=== PATIENT | female | born 1935 | race Caucasian/White ===

== ENCOUNTER 2023-10-18 06:58 | Day surgery (SDC) | payer MEDICARE ==
[~2023-10-18 06:58] MED LIST: ALPRAZolam 0.25 MG TAB PO PRN; ALPRAZolam 0.5 MG TAB PO PRN; ASPIRIN 325 MG TAB PO STA; HEPARIN SODIUM,PORCINE (1 ML) 2,500 UNIT in SODIUM CHLORIDE 0.9% 250 ML IRRIGATION PRN; HEPARIN SODIUM,PORCINE 10,000 UNIT in SODIUM CHLORIDE 0.9% 1,000 ML IRRIGATION PRN; NITROGLYCERIN SL TABS 0.4 MG TAB SUBLINGUAL PRN
[2023-10-18] MEDS ORDERED: CLOPIDOGREL 75 MG TAB ONE (07:15)
[2023-10-18] MEDS: SODIUM CHLORIDE 0.9% 1,000 ML in EMPTY BAG 1 BAG IV SCH ×2 (07:15→21:36)
[2023-10-18] MEDS ORDERED: SODIUM CHLORIDE 0.9% 1,000 ML IV ONE (07:17)
[2023-10-18 07:42] LABS: Glucose,Whole Blood 111 mg/dL (70-110)
[2023-10-18] MEDS ORDERED: VERAPAMIL 2.5 MG/ML 2 ML AMP ONE (08:41)
[2023-10-18] MEDS ORDERED: LIDOCAINE 1% INJ 10MG/ML (20 ML MDV) ONE (08:41)
[2023-10-18] MEDS ORDERED: HEPARIN SODIUM 1,000 UN/ML (10ML VL) ONE (08:56)
[2023-10-18] MEDS ORDERED: MIDAZOLAM 2 MG/2 ML VIAL IVP ONE (09:25)
[2023-10-18] MEDS ORDERED: LIDOCAINE 1% INJ 10MG/ML (20 ML MDV) SQ ONE (09:27)
[2023-10-18] MEDS ORDERED: HEPARIN SODIUM 1,000 UN/ML (10ML VL) IV ONE (09:50)
[2023-10-18] MEDS ORDERED: RX INFO: IV CONTRAST WAS GIVEN 1 EACH MISC MISCELLANE PRN (10:01)
[2023-10-18] MEDS ORDERED: IOPAMIDOL-370 100ML BTL INJ ONE (10:03)
--- NOTE | 2023-10-18 10:11 | P.PCN ---
Date of Procedure: 10/18/23 Operative Findings: CARDIAC CATHETERIZATION PERFORMING PHYSICIAN: Ross De La Torre MD, RPVI PROCEDURE PERFORMED: 1. Selective right and left coronary angiogram 2. Left heart catheterization 3. iFR of the right coronary artery 4. Ultrasound-guided access of the right common femoral artery and right common femoral artery angiogram INDICATION: Cardiomyopathy COMPLICATION: None APPROACH: Right common femoral artery LEVEL OF SEDATION: Moderate with sedation in length of 28 minutes PROCEDURE DESCRIPTION: After obtaining an informed consent, the patient was brought to cardiac quality lab assoc. Initially I was trying to axis the right radial artery but the wire passed only initially then it stopped after that. I decided to go from the right groin. Local anesthesia was performed using lidocaine subcutaneously. The right common femoral artery was cannulated using Seldinger technique, the guidewire passed easily, following that we advanced a 6 Lithuanian sheath dilator assembly, the wire and dilator were removed and sheath was flushed. Selective right and left coronary angiogram using a 5-Lithuanian JR4 and a 4-Lithuanian JL JL 3.5 catheters. Following that we did left heart catheterization using 5-Lithuanian JR4 catheter Finally selective right common femoral artery angiogram was performed The procedure was completed there was no complication. After that I did Doppler measurements of the right coronary artery mid after zeroing the Doppler wire and equalizing between the Doppler wire and guiding catheter I did engage the right coronary artery is a JR4 catheter then I did wire the RCA. The iFR came in to be an 0.74. SELECTIVE CORONARY ANGIOGRAM: The right coronary artery: Large caliber vessel and a dominant vessel and calcified vessel. The RCA has intermediate to severe tubular lesion in the midportion. I did document the lesion to be flow-limiting by Doppler wire with iFR came in to be at 0.74 Left main: Calcified was mild to moderate disease appears to be in the range of 30-40% The left circumflex: Large caliber vessel nondominant vessel. The LCx gives rises into the first and second obtuse marginal branches and they appear to have mild disease only. The AV groove circumflex is a small caliber vessel. The left anterior descending artery: Large caliber vessel. The proximal LAD has a lesion appeared to be in the range of 70-80% appeared to be very calcified. The mid and distal LAD appears to have mild disease only. The LAD gives rises into the first diagonal branch which is a large caliber vessel was mild disease only HEMODYNAMICS: The LVEDP was about 22 mmHg with about 15 mm mini gradient across aortic valve CONCLUSION: 1. Calcified right and left coronary system 2. Severe disease involving the mid RCA and proximal LAD 3. Mean gradient across aortic valve of 15 mmHg indicating either low-flow no gradient aortic stenosis versus severe aortic stenosis POSTPROCEDURE MANAGEMENT: A consider PCI of the RCA and LAD Consider low-dose dobutamine stress test to assess the aortic valve
[2023-10-18] MEDS ORDERED: SODIUM CHLORIDE 0.9% 1,000 ML IV SCH (10:15)
[2023-10-18] MEDS ORDERED: FUROSEMIDE 10 MG/ML 2 ML VIAL IV ONE (10:23)
[2023-10-18 13:49] VITALS: RESP 16
[2023-10-18] MEDS ORDERED: ACETAMINOPHEN TAB 500 MG TAB PO ONE (14:35)
[2023-10-19 08:42] VITALS: BP 140/94; PULSE 62; TEMP 97.3
[2023-10-19 09:49] LABS: Basophils % (A) 1 %; Eosinophils % (A) 0 %; HGB 11.1 gm/dL (11.4-16.0); Hypochromasia Marked; Lymphocytes # (A) 1.1 k/uL (1.0-4.8); Lymphocytes % (A) 18 %; MCH 25.9 pg (25.0-35.0); MCHC 30.7 g/dL (31.0-37.0); MCV 84.4 fL (80.0-100.0); Mean Platelet Volume 9.5; Monocytes # (A) 0.4 k/uL (0-1.0); Monocytes % (A) 6 %; Neutrophils # (A) 4.3 k/uL (1.3-7.7); Neutrophils % (A) 73 %; Platelet Count 177 k/uL (150-450); RBC 4.27 m/uL (3.80-5.40); RDW 15.1 % (11.5-15.5)
[2023-10-19 10:11] LABS: African American GFR (CKD) 47 (>60 ml/min/1.73 sqM); Anion Gap 12 mmol/L; Blood Urea Nitrogen 31 mg/dL (7-17); Calcium 9.2 mg/dL (8.4-10.2); Carbon Dioxide 27 mmol/L (22-30); Chloride 100 mmol/L (98-107); Glucose 150 mg/dL (74-99); Non-African American GFR(CKD) 41 (>60 ml/min/1.73 sqM); Potassium 4.4 mmol/L (3.5-5.1); Sodium 139 mmol/L (137-145)
== END 2023-10-19 11:40 | disposition home or self-care (01) ==
LOC: CATHCVL 06:58 → 6NMEDSUR 09:55 → CATHCVL 10-19 11:40
PROVIDERS: ATTEND Internal Medicine Interventional Cardiology
DX: I35.0 Nonrheumatic aortic (valve) stenosis (principal); I42.9 Cardiomyopathy, unspecified; I10 Essential (primary) hypertension; E78.5 Hyperlipidemia, unspecified; E11.9 Type 2 diabetes mellitus without complications; E66.3 Overweight; Z79.82 Long term (current) use of aspirin; Z79.899 Other long term (current) drug therapy; Z79.02 Long term (current) use of antithrombotics/antiplatelets; Z79.84 Long term (current) use of oral hypoglycemic drugs
CPT/HCPCS: 99152; 99153; 93458; 93799; 76937; 80048; 85025; C1887; C1769 ×3; C1894 ×2; J2250; J1940; J2001; J1644; Q9967

== ENCOUNTER 2023-10-25 06:56 | Inpatient (IN) | payer MEDICARE ==
[~2023-10-25 06:56] MED LIST changes: -ASPIRIN 325 MG TAB PO STA; -HEPARIN SODIUM,PORCINE (1 ML) 2,500 UNIT in SODIUM CHLORIDE 0.9% 250 ML IRRIGATION PRN; -HEPARIN SODIUM,PORCINE 10,000 UNIT in SODIUM CHLORIDE 0.9% 1,000 ML IRRIGATION PRN
[2023-10-25] MEDS ORDERED: HEPARIN SODIUM,PORCINE (1 ML) 2,500 UNIT in SODIUM CHLORIDE 0.9% 250 ML IRRIGATION PRN (07:00)
[2023-10-25] MEDS ORDERED: HEPARIN SODIUM,PORCINE 10,000 UNIT in SODIUM CHLORIDE 0.9% 1,000 ML IRRIGATION PRN (07:00)
[2023-10-25 07:18] LABS: Glucose,Whole Blood 138 mg/dL (70-110)
[2023-10-25] MEDS: SODIUM CHLORIDE 0.9% 1,000 ML in EMPTY BAG 1 BAG IV ONE (07:46)
[2023-10-25] MEDS ORDERED: LIDOCAINE 1% INJ 10MG/ML (20 ML MDV) ONE (08:52)
[2023-10-25] MEDS ORDERED: HEPARIN SODIUM 1,000 UN/ML (10ML VL) ONE ×2 (09:06→10:00)
[2023-10-25] MEDS ORDERED: fentaNYL (PF) 50 MCG/ML 2 ML AMP ONE (09:06)
[2023-10-25] MEDS: LIDOCAINE 1% INJ 10MG/ML (20 ML MDV) SQ ONE (09:18)
[2023-10-25] MEDS: MIDAZOLAM 2 MG/2 ML VIAL IVP ONE (09:19)
[2023-10-25] MEDS: fentaNYL (PF) 50 MCG/ML 2 ML AMP IVP ONE (09:19)
[2023-10-25] MEDS: HEPARIN SODIUM 1,000 UN/ML (10ML VL) IVP ONE (09:23)
[2023-10-25] MEDS: IOPAMIDOL-370 100ML BTL INJ ONE ×2 (09:47)
[2023-10-25] MEDS ORDERED: CLOPIDOGREL 75 MG TAB ONE (09:48)
[2023-10-25] MEDS: CLOPIDOGREL 75 MG TAB PO ONE (09:49)
[2023-10-25] MEDS ORDERED: ZOLPIDEM 5 MG TAB PO PRN (10:20)
[2023-10-25] MEDS ORDERED: MAG HYDROX/AL HYDROX/SIMETH 30 ML CUP PO PRN (10:20)
[2023-10-25] MEDS ORDERED: NITROGLYCERIN SL TABS 0.4 MG TAB SUBLINGUAL PRN (10:20)
[2023-10-25] MEDS ORDERED: RX INFO: IV CONTRAST WAS GIVEN 1 EACH MISC MISCELLANE PRN (10:20)
[2023-10-25] MEDS ORDERED: ATROPINE SULFATE 0.1 MG/ML 10ML SYRINGE IV PRN (10:20)
[2023-10-25] MEDS: TIROFIBAN 12.5MG-250ML NS 250 ML IV ONE (10:23)
--- NOTE | 2023-10-25 10:25 | P.PCN ---
Date of Procedure: 10/25/23 Operative Findings: PERCUTANEOUS CORONARY INTERVENTION Performing physician Ross De La Torre M.D. Procedure Performed: 1. Successful stenting of the mid RCA using 3.5 x 38 mm Xience drug-eluting stent with an excellent angiographic results. 2. Successful stending of the proximal RCA using 3.5 x 23 mm Xience drug-eluting stent with an excellent angiographic result. 3. Adjunctive use of intravascular imaging 4. Ultrasound guided access of the right common femoral artery and right common femoral artery angiogram Indication: Severe coronary artery disease in this symptomatic 88-year-old female patient Approach: Right common femoral artery Complications: None Level of Sedation: Moderate with a sedation length of 46 minutes Procedure Discussion: After obtaining an informed consent the patient was brought to the cardiac labor commissioner. The right common femoral artery was cannulated using micropuncture technique under ultrasound guidance the micropuncture wire passed easily then I placed a 6-Burmese at the right common femoral artery. At that point anticoagulation was initiated using heparin with continuous ACT monitoring. Subsequently I did engage the right coronary artery is a JR4 guiding catheter. I deployed using a run-through wire. Intravascular ultrasound was performed and showed a diameter around 3.5 mm with a calcified vessel. Predilatation was performed initially using 2 mm noncompliant balloon and subsequently 2.5 mm noncompliant balloon. After that I deployed 3.5 x 38 mm stent in the midright coronary artery with a stent was positioned under fluoroscopy guidance and deployed under fluoroscopy guidance. Postradiation was performed using 3.5 mm noncompliant balloon. There was dampening in the waveform and ventricularization as well as upon engaging the ostial right coronary artery which seems to have a lesion appeared to be flow limiting. I did a predilatation using 3.5 mm balloon before I deployed 3.5 x 23 mm stent was about millimeter overlap between the old and new stents. After that I deflated the ostium using 3.5 mm noncompliant balloon. An angiogram was performed and showed possible thrombus/dizziness involving the mid right coronary artery in the stented segment confirmed by intravascular imaging. I did after that postradiation again using 3.5 mm balloon was mild improvement. There was GEOFFREY-3 flow. The patient did not have any chest pain or any EKG changes. By the end we realize that the IV was not working and the patient did not receive any heparin. Immediately another IV was obtained and the patient was given heparin and Aggrastat. Postprocedure Management: 1. Continue dual antiplatelet therapy and statin 2. Aggressive cholesterol control 3. PCI of the LAD
[2023-10-25] MEDS: ASPIRIN 81 MG PO SCH (19:44)
[2023-10-25 20:00] LABS: Glucose,Whole Blood 131 mg/dL (70-110)
[2023-10-25] MEDS ORDERED: HYDROcodone/APAP 5-325MG 1 EACH TAB PO PRN (20:38)
[2023-10-25] MEDS: ACETAMINOPHEN TAB 325 MG TAB PO PRN (20:45)
[2023-10-25] MEDS: GABAPENTIN 400 MG CAP PO SCH (20:45)
[2023-10-26 06:14] LABS: Glucose,Whole Blood 123 mg/dL (70-110)
[2023-10-26] MEDS: ATORVASTATIN 80 MG TAB PO STA (08:15)
[2023-10-26] MEDS: SODIUM CHLORIDE 0.9% 1,000 ML in EMPTY BAG 1 BAG IV SCH (08:15)
[2023-10-26] MEDS: ASPIRIN 325 MG TAB PO STA (08:15)
[2023-10-26] MEDS: CHOLECALCIFEROL 25 MCG (1000 IU) TABLET PO SCH (08:15)
[2023-10-26] MEDS: ACETAMINOPHEN TAB 325 MG TAB ONE (08:15)
[2023-10-26] MEDS: GABAPENTIN 300 MG CAP PO SCH (08:20)
[2023-10-26] MEDS: PANTOPRAZOLE 40 MG TABLET PO SCH (08:20)
[2023-10-26] MEDS: lisinopriL 10 MG TAB PO SCH (08:20)
[2023-10-26] MEDS: POTASSIUM CHLORIDE ER 10 MEQ TAB.ER.PRT PO SCH (08:20)
[2023-10-26] MEDS: FUROSEMIDE 40 MG TAB PO SCH (08:20)
[2023-10-26] MEDS: CLOPIDOGREL 75 MG TAB PO SCH (08:20)
[2023-10-26] MEDS: PIOGLITAZONE 15 MG TAB PO SCH (08:20)
[2023-10-26 08:39] VITALS: RESP 16; TEMP 97.9
[2023-10-26 09:40] LABS: African American GFR (CKD) 44 (>60 ml/min/1.73 sqM); Non-African American GFR(CKD) 38 (>60 ml/min/1.73 sqM)
[2023-10-26 10:39] VITALS: BMI 47.6
[2023-10-26 10:53] LABS: Anion Gap 12 mmol/L; Blood Urea Nitrogen 37 mg/dL (7-17); Calcium 8.7 mg/dL (8.4-10.2); Carbon Dioxide 24 mmol/L (22-30); Chloride 103 mmol/L (98-107); Glucose 179 mg/dL (74-99); Magnesium 1.4 mg/dL (1.6-2.3); Potassium 4.5 mmol/L (3.5-5.1); Sodium 139 mmol/L (137-145)
[2023-10-26] MEDS ORDERED: Magnesium Replacement Protocol 1 EACH MISC MISCELLANE PRN (11:22)
[2023-10-26] MEDS: MAGNESIUM SULFATE-D5W PMX 1 GM in DEXTROSE/WATER 1 100ML.BAG IVPB SCH (11:33)
[2023-10-26 11:36] LABS: Glucose,Whole Blood 160 mg/dL (70-110)
[2023-10-26 12:41] VITALS: BP 92/54; PULSE 91
--- NOTE | 2023-10-26 16:59 | CA ---
Transthoracic Echo Report Name: Concha Tony Age: 88 Gender: F : 1935 Exam Date: 10/26/2023 12:34 Exam Location: [facility] Ht (in): 58 Wt (lb): 212 Ordering Physician: Ella Barahona Attending/Referring Phys: [id number], Jun Director Executive Communications Sarath Escamilla Procedure CPT: Indications: LV function, Cardiac Hx: Technical Quality: Technically difficult study Contrast 1: Total Dose (mL): Contrast 2: Total Dose (mL): MEASUREMENTS (Male / Female) Normal Values 2D ECHO LV Diastolic Diameter PLAX 5.0 cm 4.2 - 5.9 / 3.9 - 5.3 cm LV Systolic Diameter PLAX 4.8 cm IVS Diastolic Thickness 1.1 cm 0.6 - 1.0 / 0.6 - 0.9 cm LVPW Diastolic Thickness 1.4 cm 0.6 - 1.0 / 0.6 - 0.9 cm LV Relative Wall Thickness 0.5 RV Internal Dim ED PLAX 2.6 cm LVOT Diameter 1.9 cm Aortic Root Diameter 2.2 cm LA Systolic Diameter LX 2.6 cm 3.0 - 4.0 / 2.7 - 3.8 cm LV Diastolic Volume MOD BP 58.8 cm??? 67 - 155 / 56 - 104 cm??? LV Systolic Volume MOD BP 40.7 cm??? 22 - 58 / 19 - 49 cm??? LV Ejection Fraction MOD BP 30.9 % >= 55 % LV Cardiac Index MOD BP 746.5 cm???/min???m??? LV Diastolic Volume MOD 4C 61.5 cm??? LV Systolic Volume MOD 4C 48.1 cm??? LV Ejection Fraction MOD 4C 21.8 % LV Cardiac Index MOD 4C 549.9 cm???/min???m??? LV Diastolic Length 4C 7.2 cm LV Systolic Length 4C 7.0 cm LV Diastolic Volume MOD 2C 56.2 cm??? LV Systolic Volume MOD 2C 34.0 cm??? LV Ejection Fraction MOD 2C 39.4 % LV Cardiac Index MOD 2C 909.2 cm???/min???m??? LV Diastolic Length 2C 7.2 cm LV Systolic Length 2C 6.8 cm LA Volume 45.1 cm??? 18 - 58 / 22 - 52 cm??? LA Volume Index 22.0 cm???/m??? 16 - 28 cm???/m??? DOPPLER AV Peak Velocity 198.2 cm/s AV Peak Gradient 15.7 mmHg AV Mean Velocity 141.6 cm/s AV Mean Gradient 9.2 mmHg AV Velocity Time Integral 40.0 cm LVOT Peak Velocity 38.2 cm/s LVOT Peak Gradient 0.6 mmHg LVOT Velocity Time Integral 8.2 cm LVOT Stroke Volume 24.5 cm??? LVOT Stroke Volume Index 13.1 ml/m??? LVOT Cardiac Index 1004.1 cm???/min???m??? AV Area Cont Eq vti 0.6 cm??? AV Area Cont Eq pk 0.6 cm??? MV Peak Velocity 109.0 cm/s MV Peak Gradient 4.8 mmHg MV Mean Velocity 58.9 cm/s MV Mean Gradient 1.7 mmHg MV Velocity Time Integral 33.0 cm MR Peak Velocity 462.1 cm/s MR Peak Gradient 85.4 mmHg Mitral E Point Velocity 99.9 cm/s Mitral A Point Velocity 63.7 cm/s Mitral E to A Ratio 1.6 MV Deceleration Time 101.5 ms TR Peak Velocity 296.4 cm/s TR Peak Gradient 35.1 mmHg Right Ventricular Systolic Press 40.1 mmHg PV Peak Velocity 86.6 cm/s PV Peak Gradient 3.0 mmHg FINDINGS Left Ventricle Normal LV size. Mild concentric LVH. Ventricular septal akinesis. Left ventricular ejection fraction is estimated at 20-25 %. Right Ventricle Normal right ventricular size. RVSP= 40mmHg. Right Atrium Normal right atrial size. Left Atrium Mild left atrial dilatation. LA volume index= 24ml/m2 Mitral Valve Structurally normal mitral valve. No mitral stenosis. Moderate to severe MR. Aortic Valve Aortic valve not well visualized. AV peak gradient= 15.7mmHg. Mean gradient= 9.2mmHg. Tricuspid Valve Structurally normal tricuspid valve. Mild to moderate TR. Pulmonic Valve Pulmonic valve not well visualized. No pulmonic regurgitation. Pericardium There is a question of a small posterior pericardial effusion in short axis views. Aorta Normal size aortic root. CONCLUSIONS Severe LV dysfunction moderate to severe mitral regurgitation Aortic Is not well-visualized the peak gradient across the valve is 15 mm Previewed by: Dr. Thom Berrios MD (Electronically Signed) Final Date: 26 October 2023 16:58
[2023-10-27] MEDS ORDERED: lisinopriL 5 MG TAB PO SCH (09:00)
--- NOTE | 2023-10-30 15:18 | CDI ---
Documentation Clarification Form Date: 10/30/2023 02:56:45 PM From: Gaye Pitts Admit Date: 10/26/2023 11:31:00 AM Patient Name: Concha Tony Visit Number: [id number] Discharge Date: 10/26/2023 03:21:00 PM ATTENTION: The Clinical Documentation Specialists (CDI) and [facility] Coding Staff appreciate your assistance in clarifying documentation. Please respond to the clarification below the line at the bottom and electronically sign. The CDI & [facility] Coding staff will review the response and follow-up if needed. Please note: Queries are made part of the Legal Health Record. If you have any questions, please contact the author of this message via ITS. Dr. Ross De La Torre The patients principal diagnosis the diagnosis that was chiefly responsible for the admission - has not been clearly identified and clarification is requested. The patient presented 10/25/23 for elective outpatient percutaneous transluminal coronary angioplasty with coronary stent placement, IVUS, and ultrasound guided access for severe coronary artery disease. History/Risk factors: patient is an 88 year old female with HTN, cardiomyopathy, type 2 DM, nicotine dependence, and CHF. Clinical Indicators: patient successfully underwent PTCA on 10/25/23 in the outpatient setting. Patient was changed to inpatient status 10/26/23. Inpatient order states: "meets inpt criteria with hypomag. Patient was discharged the same day after treating hypomagnesemia. Lab findings: magnesium 1.4 Treatment: magnesium sulfate-D5w Pmx 1gm, dextrose/water 1 100ml bag IVPB Q1H In your professional opinion, can you please clarify which diagnosis, after study, was the reason chiefly responsible for the admission? [ ] Hypomagnesemia [ ] Coronary Artery Disease [ ] Other, please specify [ ] Unable to determine MTDD
--- NOTE | 2023-11-01 08:40 | DS ---
DISCHARGE SUMMARY BRIEF HISTORY: The patient is a pleasant 88-year-old female patient, who was admitted to the hospital and underwent stenting of the right coronary artery with good angiographic results and with no complication from right groin approach. The patient was seen and evaluated on October 26, 2023 and she was doing well and asymptomatic and hemodynamically stable. The patient will be going to be discharged home and she will be seen in the office for an evaluation to undergo PCI of the LAD. MMGRUPO / JERALDN: [id number] /
== END 2023-10-26 15:21 | disposition home or self-care (01) | DRG 322 ==
LOC: CATHCVL 06:56 → 3SCARD 16:57 → CATHCVL 10-26 11:31 → 3SCARD 10-26 11:31
PROVIDERS: ADMIT Internal Medicine Interventional Cardiology; ATTEND Internal Medicine Interventional Cardiology
PROC: B240ZZ3 Ultrasonography of Single Coronary Artery, Intravascular (ICD-10-PCS; principal; 2023-10-25 09:00)
PROC: 027035Z Dilation of Coronary Artery, One Artery with Two Drug-eluting Intraluminal Devices, Percutaneous Approach (ICD-10-PCS; principal; 2023-10-25 09:00)
DX: I25.10 Atherosclerotic heart disease of native coronary artery without angina pectoris (principal); Z68.42 Body mass index [BMI] 45.0-49.9, adult; E83.42 Hypomagnesemia; I42.9 Cardiomyopathy, unspecified; I35.0 Nonrheumatic aortic (valve) stenosis; E11.9 Type 2 diabetes mellitus without complications; I10 Essential (primary) hypertension; E78.5 Hyperlipidemia, unspecified; F17.210 Nicotine dependence, cigarettes, uncomplicated; E66.3 Overweight; I35.9 Nonrheumatic aortic valve disorder, unspecified; I11.0 Hypertensive heart disease with heart failure; I50.9 Heart failure, unspecified; Z28.310 Unvaccinated for COVID-19; Z71.3 Dietary counseling and surveillance; Z79.82 Long term (current) use of aspirin; Z79.84 Long term (current) use of oral hypoglycemic drugs; Z79.899 Other long term (current) drug therapy
CPT/HCPCS: 76937; 80048; 83735; 92978; 93306

== ENCOUNTER 2023-10-31 11:25 | Inpatient (IN) | payer MEDICARE ==
[~2023-10-31 11:25] MED LIST changes: +HEPARIN SODIUM,PORCINE (1 ML) 2,500 UNIT in SODIUM CHLORIDE 0.9% 250 ML IRRIGATION PRN; +HEPARIN SODIUM,PORCINE 10,000 UNIT in SODIUM CHLORIDE 0.9% 1,000 ML IRRIGATION PRN
[2023-10-31] MEDS: SODIUM CHLORIDE 0.9% 1,000 ML IV ONE (12:23)
[2023-10-31 12:47] LABS: Basophils % (A) 0 %; Eosinophils % (A) 1 %; HCT 33.1 % (34.0-46.0); HGB 10.2 gm/dL (11.4-16.0); Hypochromasia Marked; Lymphocytes # (A) 1.4 k/uL (1.0-4.8); Lymphocytes % (A) 19 %; MCH 25.6 pg (25.0-35.0); MCHC 30.8 g/dL (31.0-37.0); MCV 83.1 fL (80.0-100.0); Mean Platelet Volume 9.3; Monocytes # (A) 0.5 k/uL (0-1.0); Monocytes % (A) 6 %; Neutrophils # (A) 5.5 k/uL (1.3-7.7); Neutrophils % (A) 72 %; Platelet Count 182 k/uL (150-450); RBC 3.98 m/uL (3.80-5.40); WBC 7.6 k/uL (3.8-10.6)
[2023-10-31 12:48] LABS: Glucose,Whole Blood 121 mg/dL (70-110)
[2023-10-31 13:04] LABS: African American GFR (CKD) 50 (>60 ml/min/1.73 sqM); Anion Gap 7 mmol/L; Blood Urea Nitrogen 33 mg/dL (7-17); Calcium 8.9 mg/dL (8.4-10.2); Carbon Dioxide 27 mmol/L (22-30); Glucose 125 mg/dL (74-99); Non-African American GFR(CKD) 44 (>60 ml/min/1.73 sqM); Potassium 4.9 mmol/L (3.5-5.1); Sodium 137 mmol/L (137-145)
[2023-10-31 13:16] LABS: Chloride 103 mmol/L (98-107)
[2023-10-31] MEDS ORDERED: HEPARIN SODIUM,PORCINE 30 ML 30 ML ONE (15:00)
[2023-10-31] MEDS ORDERED: HEPARIN SODIUM 1,000 UN/ML (10ML VL) ONE (15:02)
[2023-10-31] MEDS ORDERED: LIDOCAINE 1% INJ 10MG/ML (20 ML MDV) ONE ×2 (15:02→17:24)
[2023-10-31] MEDS: MIDAZOLAM 2 MG/2 ML VIAL IVP ONE (15:21)
[2023-10-31] MEDS: LIDOCAINE 1% INJ 10MG/ML (20 ML MDV) SQ ONE ×2 (15:23→17:37)
[2023-10-31] MEDS ORDERED: fentaNYL (PF) 50 MCG/ML 2 ML AMP ONE (15:31)
[2023-10-31] MEDS: fentaNYL (PF) 50 MCG/ML 2 ML AMP IVP ONE (15:33)
[2023-10-31] MEDS: IOPAMIDOL-370 125ML BTL INJ ONE (16:28)
[2023-10-31] MEDS ORDERED: MAG HYDROX/AL HYDROX/SIMETH 30 ML CUP PO PRN (16:35)
[2023-10-31] MEDS ORDERED: ATROPINE SULFATE 0.1 MG/ML 10ML SYRINGE IV PRN (16:35)
[2023-10-31] MEDS ORDERED: RX INFO: IV CONTRAST WAS GIVEN 1 EACH MISC MISCELLANE PRN (16:35)
[2023-10-31] MEDS ORDERED: ZOLPIDEM 5 MG TAB PO PRN (16:35)
[2023-10-31] MEDS ORDERED: NITROGLYCERIN SL TABS 0.4 MG TAB SUBLINGUAL PRN (16:35)
[2023-10-31] MEDS: ASPIRIN 325 MG TAB PO ONE (17:00)
[2023-10-31] MEDS: SODIUM CHLORIDE 0.9% 1,000 ML in EMPTY BAG 1 BAG IV SCH ×2 (17:00→19:30)
[2023-10-31] MEDS: ATORVASTATIN 80 MG TAB PO STA (17:00)
[2023-10-31] MEDS ORDERED: MORPHINE SULFATE 4 MG/ML SYRINGE ONE (17:11)
[2023-10-31] MEDS: MORPHINE SULFATE 4 MG/ML SYRINGE IVP ONE (17:40)
[2023-10-31] MEDS: IOPAMIDOL-370 100ML BTL INJ ONE (17:59)
[2023-10-31] MEDS: GABAPENTIN 300 MG CAP PO SCH (18:10)
--- NOTE | 2023-10-31 18:10 | P.PCN ---
Date of Procedure: 10/31/23 Operative Findings: PERCUTANEOUS CORONARY INTERVENTION Performing physician Ross De La Torre M.D. Procedure Performed: 1. Successful stenting of the mid LAD using 3.0 x 28 mm Xience drug-eluting stent with an excellent angiographic results. 2. Successful stending of the proximal LAD using 3.5 x 18 mm Xience drug-eluting stent with an excellent angiographic result. 3. Adjunctive use of Impella CP and orbital atherectomy and intravascular im aging 4. Ultrasound-guided access of the right common femoral artery and right common femoral artery angiogram Indication: This is an 88-year-old female patient was diagnosed as she was cardiomyopathy patient underwent a heart catheterization and that revealed severely calcified right and left coronary system with a critical disease involving the right co ronary artery and left anterior descending artery. She underwent PCI of the RCA and she was brought today to undergo PCI of the LAD. Approach: Right common femoral artery Complications: None Level of Sedation: Moderate with a sedation length of 65 minutes Procedure Discussion: After obtaining an informed consent the patient was brought to the cardiac systems testing laboratory technician. The right common femoral artery was cannulated using micro-rupture technique under ultrasound guidance; puncture wire passed easily then I placed 11 cm 6-Surinamese sheath at the right common femoral artery subsequently I was able to deploy a Perclose device at 10:00 in Perclose device at 2:00. After that an 8-Surinamese sheath was placed at the right common femoral artery. Subsequently I did upgrade my 8-Surinamese sheath into a 14-Surinamese sheath using 035 stiff wire and that was performed under fluoroscopy guidance and the sheath was advanced all the way to the right iliac artery. The sheath was a long sheath. After that I did across the aortic valve using 035 regular wire with a 6-Surinamese pigtail catheter. Subsequently the wire was pulled out and exchange into an 018 Impella wire. After that the Impella device was advanced over the 018 wire under fluoroscopy guidance to the LV. Subsequently it was turned on. Adequate position was assured under fluoroscopy guidance and also with a good pressure wave forms. Subsequently I did access the 14-Surinamese sheath using Micropuncture needle and then I placed a 7-Surinamese 23 cm sheath at the teen Surinamese sheath. After that anticoagulation was initiated using heparin with continuous ACT monitoring. Then I did engage the left main using a CLS 3.5 guiding catheter which was 6-Surinamese catheter. Then I did to wire the left anterior descending artery using a run-through wire. Intravascular imaging performed and showed heavily calcified left anterior descending artery and as a matter of fact I could not advance the catheter to the proximal LAD only the ostial LAD was identified. After that I did exchange my wire into an atherectomy wire using microcatheter. Orbital atherectomy was performed using the orbital atherectomy device under low speed 4. Subsequently balloon angioplasty was performed using 2.5 mm noncompliant balloon with adequate inflation and adequate expansion of the balloon. After that I decided to do an intravascular imaging again which showed a diameter of the LAD in the midportion about 3 mm an approximately 3.5 mm. In the mid LAD I deployed 3.0 x 28 mm stent where the stent was positioned under fluoroscopy guidance and deployed under fluoroscopy guidance and approximately I deployed 3.5 x 18 mm stent as well. The area of overlap was postdilated using the stent balloon. Then final postdilatation was performed using 3.25 millimeters noncompliant balloon. Final angiogram showed excellent angiographic results and the procedure was completed with no complication. Subsequently the Impella CP was pulled across aortic valve the it was pulled across the whole body. After that the 14-Surinamese sheath was pulled out over 035 wire which was a regular wire and I deployed the Perclose devices. There was some wheezing and manual pressure was held. The procedure was completed was no complication Postprocedure Management: 1. Sheet dual antiplatelet therapy for additional twelve-month 2. Aggressive cholesterol control 3. Risk factors modification
--- NOTE | 2023-10-31 18:15 | P.PCN ---
Date of Procedure: 10/31/23 Operative Findings: PERCUTANEOUS PERIPHERAL INTERVENTION Performing physician Ross De La Torre M.D. Procedure performed 1. Successful stenting of the right common femoral artery using 6.0 x 37 mm LifeStream covered stent with achieving excellent hemostasis 2. Selective left common femoral artery angiogram Indication The patient is a pleasant 88-year-old female patient was underwent earlier today successful stenting of the left anterior descending artery from right groin approach with adjunctive use of Impella CP with 14-Central African sheath. Hemostasis was not achieved in spite of holding manual pressure for at least an hour. She was having gushed bleeding from the groin. In the light of that we decided to axis the left groin and proceed with initially balloon tamponading the artery was subsequently stenting if following temporal adding did not [place]. Approach Left common femoral artery Complications None Level of sedation Moderate with a sedation time of 30 minutes Procedure description The patient was already in the cardiac laborer sawmill from the previous procedure. After manual pressure was held for about 30 minutes and no hemostasis was achieved with decided to axis the left groin. The left common femoral artery was cannulated using puncture technique under ultrasound guidance the micro- rupture wire passed easily then I placed a 6-Central African 11 cm sheath the left common femoral artery. Subsequently I was able to direct the 035 stiff Glidewire to the right common iliac artery and subsequently right external iliac artery and then the right common femoral artery and then right SFA. After that I advanced a 6.0 x 40 mm cvvs-nra-limb balloon to the right common and right external iliac artery where balloon tamponading was performed on subsequently an angiogram showed extravasation of contrast outside the right common femoral artery. I decided to balloon tamponade again and in spite of that the bleeding did not stop. At that point I decided to cover the lesion using color stent. I was able to advance 6.0 x 37 mm covered stent over 035 wire where the stent was positioned under fluoroscopy guidance and deployed under its nominal pressure. Postdilatation was performed using 7 mm balloon. Finally I was able to achieve good hemostasis at the right groin. The procedure was completed with no complication. Postprocedure management 1. Monitor the hemoglobin very closely 2. Consider blood transfusion at the hemoglobin low 3. Follow-up with the patient
[2023-10-31 18:25] LABS: Glucose,Whole Blood 114 mg/dL (70-110)
[2023-10-31] MEDS: GABAPENTIN 400 MG CAP PO SCH (20:46)
[2023-10-31] MEDS: ASPIRIN 81 MG PO SCH (20:46)
[2023-10-31 21:04] LABS: Anisocytosis Slight; Hypochromasia Marked; MCH 25.7 pg (25.0-35.0); MCHC 30.8 g/dL (31.0-37.0); MCV 83.6 fL (80.0-100.0); Mean Platelet Volume 8.9; Platelet Count 132 k/uL (150-450); RBC 2.99 m/uL (3.80-5.40); RDW 16.1 % (11.5-15.5); WBC 5.9 k/uL (3.8-10.6)
[2023-10-31 21:21] LABS: HGB 7.7 gm/dL (11.4-16.0)
[2023-11-01 04:32] LABS: HCT 22.7 % (34.0-46.0); Hypochromasia Marked; MCH 26.1 pg (25.0-35.0); MCV 84.1 fL (80.0-100.0); Mean Platelet Volume 8.6; WBC 4.3 k/uL (3.8-10.6)
[2023-11-01 04:50] LABS: Platelet Count 57 k/uL (150-450)
[2023-11-01] MEDS: PANTOPRAZOLE 40 MG TABLET PO SCH (06:43)
[2023-11-01 07:36] LABS: African American GFR (CKD) 64 (>60 ml/min/1.73 sqM); Anion Gap 5 mmol/L; Blood Urea Nitrogen 30 mg/dL (7-17); Carbon Dioxide 23 mmol/L (22-30); Chloride 108 mmol/L (98-107); Glucose 82 mg/dL (74-99); Non-African American GFR(CKD) 56 (>60 ml/min/1.73 sqM); Sodium 136 mmol/L (137-145)
[2023-11-01 07:48] LABS: Potassium 5.4 mmol/L (3.5-5.1)
[2023-11-01] MEDS ORDERED: FUROSEMIDE 40 MG TAB PO SCH (09:00)
[2023-11-01] MEDS: CLOPIDOGREL 75 MG TAB PO SCH (09:18)
[2023-11-01] MEDS: PIOGLITAZONE 15 MG TAB PO SCH (09:18)
[2023-11-01] MEDS: POTASSIUM CHLORIDE ER 10 MEQ TAB.ER.PRT PO SCH (09:30)
[2023-11-01 09:52] LABS: Anisocytosis Slight; HCT 29.6 % (34.0-46.0); Hypochromasia Marked; MCH 25.7 pg (25.0-35.0); MCHC 30.8 g/dL (31.0-37.0); MCV 83.5 fL (80.0-100.0); Mean Platelet Volume 9.9; RBC 3.54 m/uL (3.80-5.40); WBC 7.5 k/uL (3.8-10.6)
[2023-11-01 09:54] LABS: HGB 9.1 gm/dL (11.4-16.0); Platelet Count 139 k/uL (150-450)
[2023-11-01] MEDS: lisinopriL 5 MG TAB PO SCH (10:48)
[2023-11-01 10:58] VITALS: BMI 37.0
--- NOTE | 2023-11-01 11:14 | XR ---
EXAMINATION TYPE: XR chest 1V DATE OF EXAM: 11/01/2023 COMPARISON: NONE HISTORY: 88-year-old female status post stent, CHF TECHNIQUE: Single frontal view of the chest is obtained. FINDINGS: Heart mild to moderately enlarged. Diffuse interstitial densities. Small to moderate left and small right pleural effusions. There appear to be old healed left-sided rib fracture deformities. IMPRESSION: 1. Mild to moderate cardiomegaly with pulmonary vascular congestion. 2. Small to moderate left and small right pleural effusions with adjacent atelectasis and/or consolid ation.
[2023-11-01] MEDS: FUROSEMIDE 10 MG/ML 2 ML VIAL IV SCH (11:35)
[2023-11-01] MEDS: CHOLECALCIFEROL 25 MCG (1000 IU) TABLET PO SCH (11:36)
[2023-11-01] MEDS: FUROSEMIDE 10 MG/ML 2 ML VIAL IV STA (13:42)
[2023-11-01 19:07] VITALS: RESP 18
[2023-11-01 20:22] LABS: Glucose,Whole Blood 201 mg/dL (70-110)
--- NOTE | 2023-11-01 20:28 | P.PN ---
Progress Note - Text Progress Note Date: 11/01/23 The patient is a very pleasant 88-year-old female patient with a past medical history significant for coronary artery disease and prior stenting of the RCA and yesterday the left anterior descending artery and cardiomyopathy and aortic stenosis and hypertension and dyslipidemia He was admitted to the hospital yesterday and underwent an elective angioplasty and stenting of the left anterior descending artery with adjunctive use of orbital atherectomy and also with adjunctive use of Impella CP from the right groin. The patient did well. Unfortunately we could not achieve hemostasis going from the right groin after deploying the Perclose devices. Subsequently I had to come from the left groin and a dilated balloon tamponade of the right common femoral artery and that was also unsuccessful and by the end I did stenting of the right common femoral artery using a Bard stent with achieving good hemostasis at the end. The patient was seen and evaluated today in the intensive care unit. He is doing well and he is asymptomatic. He is hemodynamically stable. The pressure has been marginal. I started the patient on diuretics IV gently 20 mg IV twice a day of Lasix because of bilateral lower extremities edema. Otherwise he reports no pain in the chest and no shortness of breath no dizziness or lightheadedness and no feeling of heart racing or fluttering. The right groin is soft and nontender with no bruises. Plan Continue the current medical regimen Continue dual antiplatelet therapy Monitor the hemoglobin very closely Continue IV diuretics Continue monitor the kidney function and electrolytes Follow-up with the patient
[2023-11-02 06:22] LABS: Glucose,Whole Blood 159 mg/dL (70-110)
[2023-11-02 08:00] LABS: Anisocytosis Slight; Basophils % (A) 0 %; Eosinophils # (A) 0.2 k/uL (0-0.7); Eosinophils % (A) 2 %; HCT 30.2 % (34.0-46.0); Hypochromasia Marked; Lymphocytes # (A) 1.4 k/uL (1.0-4.8); Lymphocytes % (A) 17 %; MCH 24.9 pg (25.0-35.0); MCHC 29.8 g/dL (31.0-37.0); MCV 83.7 fL (80.0-100.0); Mean Platelet Volume 9.5; Monocytes # (A) 0.4 k/uL (0-1.0); Monocytes % (A) 5 %; Neutrophils # (A) 6.4 k/uL (1.3-7.7); Neutrophils % (A) 75 %; Platelet Count 189 k/uL (150-450); RDW 16.4 % (11.5-15.5); WBC 8.5 k/uL (3.8-10.6)
[2023-11-02 08:15] LABS: African American GFR (CKD) 48 (>60 ml/min/1.73 sqM); Anion Gap 6 mmol/L; Blood Urea Nitrogen 30 mg/dL (7-17); Calcium 8.5 mg/dL (8.4-10.2); Carbon Dioxide 25 mmol/L (22-30); Chloride 105 mmol/L (98-107); Glucose 160 mg/dL (74-99); Non-African American GFR(CKD) 42 (>60 ml/min/1.73 sqM); Potassium 4.4 mmol/L (3.5-5.1); Sodium 136 mmol/L (137-145)
[2023-11-02 11:18] LABS: Glucose,Whole Blood 167 mg/dL (70-110)
[2023-11-02 11:44] VITALS: BP 102/38; PULSE 83; TEMP 97.5
--- NOTE | 2023-11-02 12:25 | CDI ---
Documentation Clarification Form Date: From: Vanessa Palacios Phone: [phone] Admit Date: 10/31/2023 11:54:00 AM Patient Name: Concha Tony Visit Number: [id number] Discharge Date: ATTENTION: The Clinical Documentation Specialists (CDI) and [facility] Coding Staff appreciate your assistance in clarifying documentation. Please respond to the clarification below the line at the bottom and electronically sign. The CDI & [facility] Coding staff will review the response and follow-up if needed. Please note: Queries are made part of the Legal Health Record. If you have any questions, please contact the author of this message via ITS. Dr. Ross De La Torre Your patient has a hemoglobin/hematocrit level of 7.0 Dated 11/01. Please clarify if there is an additional diagnosis and/or clinical significance related to these lab values. History/Risk Factors: "underwent an elective angioplasty and stenting of the left anterior descending artery with adjunctive use of orbital atherectomy and also with adjunctive use of Impella CP from the right groin" - Per Progress Note on 11/01 Clinical indicators: "patient did well. Unfortunately we could not achieve hemostasis going from the right groin after deploying the Perclose devices" - Per Progress Note on 11/01 "She was having gushed bleeding from groin." - Procedure note on 10/31 Hemoglobin: 10/31 - 10.2, 7.7 11/01 - 7.0, 9.1 11/02 - 9.0 Treatment: "from the left groin and a dilated balloon tamponade of the right common femoral artery and that was also unsuccessful and by the end I did stenting of the right common femoral artery using a Bard stent with achieving good hemostasis" - Per Progress Note on 11/01 "Monitor the hemoglobin very closely" "consider blood transfusion at the hemoglobin low" - Per Procedure Note on 10/31 Is there an additional diagnosis and/or clinical significance related to the above lab result/information: [ ] Acute blood loss anemia [ ] No additional diagnosis/Not clinically significant [ ] Unable to determine [ ] Other, please specify Provider has not responded to query, chart released on 12/08/2023. KEENA
--- NOTE | 2023-11-05 14:39 | CDI ---
Documentation Clarification Form Date: 11/05/2023 02:30:35 PM From: Jeni Flynn Phone: Admit Date: 10/31/2023 11:54:00 AM Patient Name: Concha Tony Visit Number: [id number] Discharge Date: 11/02/2023 03:55:00 PM ATTENTION: The Clinical Documentation Specialists (CDI) and [facility] Coding Staff appreciate your assistance in clarifying documentation. Please respond to the clarification below the line at the bottom and electronically sign. The CDI & [facility] Coding staff will review the response and follow-up if needed. Please note: Queries are made part of the Legal Health Record. If you have any questions, please contact the author of this message via ITS. Dr. Ross De La Torre Your patient has the documented diagnosis of unspecified CHF per H&P Note. Additional information regarding the acuity and type of CHF is requested. History/Risk Factors: 88yo F, severe CAD, HTN, HLD, DMII, CM, systolic murmur, , smoker Clinical Indicators: Echocardiogram Results: EF .25 (25%) 10/03/23 Chest X Ray: Mild to moderatecardiomegalywith pulmonary vascularcongestion. Small to moderate Lt and small Rtpleural effusionswith adjacent atelectasisand/or consolidation. Treatment: I started the patient on diuretics IV gently 20 mg IV twice a day of Lasix because of BLE edema. In your professional opinion, can you please clarify the acuity and type of CHF if known? [ ] Acute Systolic Heart Failure (reduced EF) [ ] Chronic Systolic Heart Failure (reduced EF) [ ] Acute on Chronic Systolic Heart Failure (reduced EF) [ ] Acute Diastolic Heart Failure (preserved EF) [ ] Chronic Diastolic Heart Failure (preserved EF) [ ] Acute on Chronic Diastolic Heart Failure (preserved EF) [ ] Acute Systolic & Diastolic Heart Failure [ ] Chronic Systolic & Diastolic Heart Failure [ ] Acute on Chronic Heart Failure Systolic & Diastolic Heart Failure [ ] Other, please specify [ ] Unable to determine (Template Last Revised: November 2020) MTDD
== END 2023-11-02 15:55 | disposition home health service (06) | DRG 221 ==
LOC: 2ORMAIN 11:54 → 2SICU 16:45 → 3SCARD 11-01 18:29
PROVIDERS: ADMIT Internal Medicine Interventional Cardiology; ATTEND Internal Medicine Interventional Cardiology
PROC: 02H03DZ Insertion of Intraluminal Device into Coronary Artery, One Artery, Percutaneous Approach (ICD-10-PCS; 2023-10-31)
PROC: 0Y3 Anatomical Regions, Lower Extremities, Control (ICD-10-PCS; 2023-10-31)
PROC: B240ZZ3 Ultrasonography of Single Coronary Artery, Intravascular (ICD-10-PCS; 2023-10-31)
PROC: 02HA3RJ Insertion of Short-term External Heart Assist System into Heart, Intraoperative, Percutaneous Approach (ICD-10-PCS; principal; 2023-10-31 11:25)
PROC: 5A0221D Assistance with Cardiac Output using Impeller Pump, Continuous (ICD-10-PCS; 2023-10-31 11:25)
PROC: 027135Z Dilation of Coronary Artery, Two Arteries with Two Drug-eluting Intraluminal Devices, Percutaneous Approach (ICD-10-PCS; 2023-10-31 11:25)
PROC: 02C03Z7 Extirpation of Matter from Coronary Artery, One Artery, Orbital Atherectomy Technique, Percutaneous Approach (ICD-10-PCS; 2023-10-31 11:25)
DX: I25.10 Atherosclerotic heart disease of native coronary artery without angina pectoris (principal); I42.9 Cardiomyopathy, unspecified; Z68.35 Body mass index [BMI] 35.0-35.9, adult; I50.9 Heart failure, unspecified; I11.0 Hypertensive heart disease with heart failure; E11.9 Type 2 diabetes mellitus without complications; I35.0 Nonrheumatic aortic (valve) stenosis; E78.5 Hyperlipidemia, unspecified; R60.0 Localized edema; E66.3 Overweight; F17.210 Nicotine dependence, cigarettes, uncomplicated; Z79.899 Other long term (current) drug therapy; Z79.82 Long term (current) use of aspirin; Z79.02 Long term (current) use of antithrombotics/antiplatelets; Z79.84 Long term (current) use of oral hypoglycemic drugs; Z28.310 Unvaccinated for COVID-19; Z79.891 Long term (current) use of opiate analgesic
CPT/HCPCS: 33990; 71045; 76937; 80048; 85025; 85027; 86850; 86900; 86901; 92978

== ENCOUNTER 2023-11-22 11:36 | Inpatient (IN) | payer MEDICARE ==
[2023-11-22] MEDS ORDERED: VANCOMYCIN IV PER PHARMACY 1 EACH MISC MISCELLANE PRN (13:27)
[2023-11-22] MEDS ORDERED: NALOXONE 0.4 MG/ML 1 ML VIAL IV PRN (13:29)
[2023-11-22] MEDS ORDERED: MORPHINE SULFATE 4 MG/ML SYRINGE IV PRN (14:02)
--- NOTE | 2023-11-22 14:06 | ED ---
Recheck HPI - General Chief Complaint: Wound/Laceration Stated Complaint: Blisters on R foot Time Seen by Provider: 11/22/23 12:28 Source: patient, RN notes reviewed, old records reviewed, Caregiver Mode of arrival: ambulatory Limitations: no limitations - History of Present Illness Initial Comments: This is a 88-year-old female to the ER today. This patient presents today for evaluation regards to overall weakness debility after recent stent placement. Patient had multiple place stents of stent in her heart with HI. Patient has persistent weakness here in the ER has had increasing debility at home decreased activity level. Patient denies any chest pain or shortness of breath but does have significant swelling of lower extremity with significant of weeping and increasing redness and pain MD Complaint: wound re-check, needs IV antibiotics -: days(s) Returns Today for: needs IV antibiotics, persistent/worsening pain related to initial visit Symptoms Since Prior Visit: worsening pain, worsening swelling, worsening redness Associated Symptoms: none Treatments Prior to Arrival: Given Antibiotics on, Given Pain Meds on - Related Data Home Medications Medication Instructions Recorded Confirmed Aspirin 81 mg PO HS 07/16/14 11/22/23 Clopidogrel [Plavix] 75 mg PO DAILY 07/16/14 11/22/23 Furosemide [Lasix] 40 mg PO DAILY 07/16/14 11/22/23 Gabapentin [Neurontin] 600 mg PO BID-W/MEALS 07/16/14 11/22/23 Lansoprazole [Prevacid] 30 mg PO DAILY 07/16/14 11/22/23 Pioglitazone [Actos] 15 mg PO DAILY 10/16/23 11/22/23 Potassium Chloride ER [K-Dur 10] 10 meq PO DAILY 10/16/23 11/22/23 Gabapentin 1,200 mg PO HS 10/25/23 11/22/23 Atorvastatin Calcium [Lipitor] 40 mg PO HS 11/22/23 11/22/23 Doxycycline Hyclate 100 mg PO BID 11/22/23 11/22/23 ramipriL 2.5 mg PO DAILY 11/22/23 11/22/23 Previous Rx's Medication Instructions Recorded Cholecalciferol [Vitamin D3 (25 1,000 unit PO DAILY@1200 #1 tab 07/21/14 Mcg = 1000 Iu)] lisinopriL [Zestril] 5 mg PO DAILY #90 tab 10/26/23 Allergies Allergy/AdvReac Type Severity Reaction Status Date / Time No Known Allergies Allergy Verified 11/22/23 16:03 Review of Systems ROS Statement: Those systems with pertinent positive or pertinent negative responses have been documented in the HPI. ROS Other: All systems not noted in ROS Statement are negative. Past Medical History Past Medical History: Heart Failure, Diabetes Mellitus, GERD/Reflux, Hyperlipidemia, Hypertension, Skin Disorder Additional Past Medical History / Comment(s): recent adm to [facility] for SOB, adjusted meds, is better, but still SOB w/exertion, possible heart valve problem, sore right leg after caught it on car door pretty much gone History of Any Multi-Drug Resistant Organisms: None Reported Past Surgical History: Section, Heart Catheterization, Heart Catheterization With Stent, Hysterectomy, Joint Replacement, Orthopedic Surgery Additional Past Surgical History / Comment(s): 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 - Past Family History Son(s) Additional Family Medical History / Comment(s): nephritis General Exam Limitations: no limitations General appearance: alert, in no apparent distress Head exam: Present: atraumatic, normocephalic, normal inspection Eye exam: Present: normal appearance, PERRL, EOMI. Absent: scleral icterus, conjunctival injection, periorbital swelling ENT exam: Present: normal exam, mucous membranes moist Neck exam: Present: normal inspection. Absent: tenderness, meningismus, lymphadenopathy Respiratory exam: Present: normal lung sounds bilaterally. Absent: respiratory distress, wheezes, rales, rhonchi, stridor Cardiovascular Exam: Present: regular rate, normal rhythm, normal heart sounds. Absent: systolic murmur, diastolic murmur, rubs, gallop, clicks GI/Abdominal exam: Present: soft, normal bowel sounds. Absent: distended, tenderness, guarding, rebound, rigid Extremities exam: Present: normal inspection, full ROM, normal capillary refill. Absent: tenderness, pedal edema, joint swelling, calf tenderness Back exam: Present: normal inspection Neurological exam: Present: alert, oriented X3, CN II-XII intact Psychiatric exam: Present: normal affect, normal mood Skin exam: Present: warm, dry, intact, normal color. Absent: rash Course Vital Signs 11/22/23 11/22/23 11/22/23 11:59 13:00 15:00 Temperature 98.7 F Pulse Rate 51 L 56 L 60 Respiratory 18 18 18 Rate Blood Pressure 101/59 104/78 106/78 O2 Sat by Pulse 98 98 98 Oximetry 11/22/23 11/22/23 16:00 17:56 Temperature Pulse Rate 54 L 58 L Respiratory 18 18 Rate Blood Pressure 101/78 100/55 O2 Sat by Pulse 98 98 Oximetry - Reevaluation(s) Reevaluation #1: 11/22/23 20:32 Medical records reviewed Reevaluation #2: 11/22/23 20:32 Patient symptoms unchanged Reevaluation #3: 11/22/23 20:33 Patient informed of results and questions were answered Reevaluation #4: 11/22/23 20:33 Was pt. sent in by a medical professional or institution (, PA, DIALYSIS SOCIAL WORKER, urgent care, hospital, or usp...) When possible be specific @ -no Did you speak to anyone other than the patient for history (EMS, parent, family, police, friend...)? What history was obtained from this source @ -no Did you review nursing and triage notes (agree or disagree)? Why? @ -agree Are old charts reviewed (outside hosp., previous admission, EMS record, old EKG, old radiological studies, urgent care reports/EKG's, usp records)? Report findings @ -yes Differential Diagnosis (chest pain, altered mental status, abdominal pain women, abdominal pain men, vaginal bleeding, weakness, fever, dyspnea, syncope, headache, dizziness, GI bleed, back pain, seizure, CVA, palpatations, mental health, musculoskeletal)? @ -prior EKG interpreted by me (3pts min.). @ -yes X-rays interpreted by me (1pt min.). @ -yes negative for acute disease CT interpreted by me (1pt min.). @ -no U/S interpreted by me (1pt. min.). @ -no What testing was considered but not performed or refused? (CT, X-rays, U/S, labs)? Why? @ -none What meds were considered but not given or refused? Why? @ -none Did you discuss the management of the patient with other professionals (professionals i.e. , PA, DIALYSIS SOCIAL WORKER, lab, RT, psych nurse, social worker school, administrative medical director, teacher, special technical operations officer, child support case officer)? Give summary @ -no Was smoking cessation discussed for >3mins.? @ -no Was critical care preformed (if so, how long)? @ -no Were there social determinants of health that impacted care today? How? (Homelessness, low income, unemployed, alcoholism, drug addiction, transpor tation, low edu. Level, literacy, decrease access to med. care, intermediate, rehab)? @ -none Was there de-escalation of care discussed even if they declined (Discuss DNR or withdrawal of care, Hospice)? DNR status @ -no What co-morbidities impacted this encounter? (DM, HTN, Smoking, COPD, CAD, Cancer, CVA, ARF, Chemo, Hep., AIDS, mental health diagnosis, sleep apnea, morbid obesity)? @ -none Was patient admitted / discharged? Hospital course, mention meds given and route, prescriptions, significant lab abnormalities, going to OR and other pertinent info. @ - Undiagnosed new problem with uncertain prognosis? @ -no Drug Therapy requiring intensive monitoring for toxicity (Heparin, Nitro, Insuli n, Cardizem)? @ -no Were any procedures done? @ -no Diagnosis/symptom? @ - Acute, or Chronic, or Acute on Chronic? @ -Acute Uncomplicated (without systemic symptoms) or Complicated (systemic symptoms)? @ -Complicated Side effects of treatment? @ -no Exacerbation, Progression, or Severe Exacerbation? @ -exacerbation Poses a threat to life or bodily function? How? (Chest pain, USA, HI, pneumonia, PE, COPD, DKA, ARF, appy, cholecystitis, CVA, Diverticulitis, Homicidal, Suicidal, threat to staff... and all critical care pts) @ -yes - Consultations Consultation #1: Spoke with many physicians who agreed admit this patient Medical Decision Making - Medical Decision Making 8 female to ER will be admitted for bilateral lower extremity cellulitis with significant blistering secondary to significant edema related to debility from recent cardiac surgery and stent placement. - Lab Data Result diagrams: 11/22/23 13:57 11/22/23 13:57 Lab Results 11/22/23 11/22/23 11/22/23 Range/Units 13:57 13:57 13:57 WBC 5.3 (3.8-10.6) k/uL RBC 3.87 (3.80-5.40) m/uL Hgb 9.2 L (11.4-16.0) gm/dL Hct 30.9 L (34.0-46.0) % MCV 79.9 L (80.0-100.0) fL MCH 23.9 L (25.0-35.0) pg MCHC 29.9 L (31.0-37.0) g/dL RDW 16.3 H (11.5-15.5) % Plt Count 223 (150-450) k/uL MPV 9.5 Neutrophils % 56 % Lymphocytes % 34 % Monocytes % 6 % Eosinophils % 1 % Basophils % 0 % Neutrophils # 3.0 (1.3-7.7) k/uL Lymphocytes # 1.8 (1.0-4.8) k/uL Monocytes # 0.3 (0-1.0) k/uL Eosinophils # 0.1 (0-0.7) k/uL Basophils # 0.0 (0-0.2) k/uL Hypochromasia Marked Poikilocytosis Slight Anisocytosis Slight Sodium 138 (137-145) mmol/L Potassium 5.5 H (3.5-5.1) mmol/L Chloride 104 (98-107) mmol/L Carbon Dioxide 30 (22-30) mmol/L Anion Gap 4 mmol/L BUN 38 H (7-17) mg/dL Creatinine 1.00 (0.52-1.04) mg/dL Est GFR (CKD-EPI)AfAm 59 (>60 ml/min/1.73 sqM) Est GFR (CKD-EPI)NonAf 51 (>60 ml/min/1.73 sqM) Glucose 116 H (74-99) mg/dL Plasma Lactic Acid Evan 1.5 (0.7-2.0) mmol/L Calcium 8.9 (8.4-10.2) mg/dL Phosphorus 3.7 (2.5-4.5) mg/dL Magnesium 1.1 L (1.6-2.3) mg/dL Total Bilirubin 1.2 (0.2-1.3) mg/dL AST 76 H (14-36) U/L ALT 22 (4-34) U/L Alkaline Phosphatase 76 (38-126) U/L Troponin I (0.000-0.034) ng/mL NT-Pro-B Natriuret Pep 51144 pg/mL Total Protein 7.1 (6.3-8.2) g/dL Albumin 3.5 (3.5-5.0) g/dL 11/22/23 Range/Units 13:57 WBC (3.8-10.6) k/uL RBC (3.80-5.40) m/uL Hgb (11.4-16.0) gm/dL Hct (34.0-46.0) % MCV (80.0-100.0) fL MCH (25.0-35.0) pg MCHC (31.0-37.0) g/dL RDW (11.5-15.5) % Plt Count (150-450) k/uL MPV Neutrophils % % Lymphocytes % % Monocytes % % Eosinophils % % Basophils % % Neutrophils # (1.3-7.7) k/uL Lymphocytes # (1.0-4.8) k/uL Monocytes # (0-1.0) k/uL Eosinophils # (0-0.7) k/uL Basophils # (0-0.2) k/uL Hypochromasia Poikilocytosis Anisocytosis Sodium (137-145) mmol/L Potassium (3.5-5.1) mmol/L Chloride (98-107) mmol/L Carbon Dioxide (22-30) mmol/L Anion Gap mmol/L BUN (7-17) mg/dL Creatinine (0.52-1.04) mg/dL Est GFR (CKD-EPI)AfAm (>60 ml/min/1.73 sqM) Est GFR (CKD-EPI)NonAf (>60 ml/min/1.73 sqM) Glucose (74-99) mg/dL Plasma Lactic Acid Evan (0.7-2.0) mmol/L Calcium (8.4-10.2) mg/dL Phosphorus (2.5-4.5) mg/dL Magnesium (1.6-2.3) mg/dL Total Bilirubin (0.2-1.3) mg/dL AST (14-36) U/L ALT (4-34) U/L Alkaline Phosphatase (38-126) U/L Troponin I 0.069 H* (0.000-0.034) ng/mL NT-Pro-B Natriuret Pep pg/mL Total Protein (6.3-8.2) g/dL Albumin (3.5-5.0) g/dL - EKG Data -: EKG Interpreted by Me (EKG is A-fib with RVR 103 QRS 83 QTc 460) - Radiology Data Radiology results: report reviewed (Chest x-ray read shows bilateral pleural effusions), image reviewed Disposition Clinical Impression: Bilateral leg edema, Skin ulcers of foot, bilateral, Bilateral lower leg cellulitis Disposition: ADMITTED IP TO THIS HOSP Condition: Good Is patient prescribed a controlled substance at d/c from ED?: No Time of Disposition: 14:00
[2023-11-22] MEDS ORDERED: LACTULOSE 20 GM/30 ML CUP PO PRN (14:14)
[2023-11-22] MEDS ORDERED: ALPRAZolam 0.25 MG TAB PO PRN (14:14)
[2023-11-22] MEDS ORDERED: ONDANSETRON 4 MG/2 ML VIAL IVP PRN (14:14)
[2023-11-22] MEDS ORDERED: MELATONIN 3 MG TABLET PO PRN (14:14)
[2023-11-22] MEDS ORDERED: CALCIUM CARBONATE 500 MG CHEWABLE PO PRN (14:14)
[2023-11-22] MEDS ORDERED: DEXTROSE 50% SYRINGE 50 ML IVP PRN ×2 (14:15)
--- NOTE | 2023-11-22 14:46 | XR ---
EXAMINATION TYPE: XR chest 2V DATE OF EXAM: 11/22/2023 COMPARISON: 11/01/2023 HISTORY: Shortness of breath TECHNIQUE: Frontal and lateral views of the chest are obtained. FINDINGS: Scattered senescent parenchymal changes noted. Hyperinflation compatible with COPD. Left basilar infiltrate and/or atelectasis as well as left greater than right pleural effusions appea r unchanged. Heart size is stable. Mediastinal structures are stable and grossly unremarkable. No evidence for hilar prominence. Degenerative changes dorsal spine. IMPRESSION: 1. Left basilar infiltrate and/or atelectasis as well as left greater than right pleural effusions ap pear unchanged.
[2023-11-22 14:58] LABS: Anisocytosis Slight; Basophils % (A) 0 %; Eosinophils # (A) 0.1 k/uL (0-0.7); Eosinophils % (A) 1 %; HCT 30.9 % (34.0-46.0); HGB 9.2 gm/dL (11.4-16.0); Hypochromasia Marked; Lymphocytes # (A) 1.8 k/uL (1.0-4.8); Lymphocytes % (A) 34 %; MCH 23.9 pg (25.0-35.0); MCHC 29.9 g/dL (31.0-37.0); MCV 79.9 fL (80.0-100.0); Mean Platelet Volume 9.5; Monocytes # (A) 0.3 k/uL (0-1.0); Monocytes % (A) 6 %; Neutrophils % (A) 56 %; Platelet Count 223 k/uL (150-450); Poikilocytosis Slight; RBC 3.87 m/uL (3.80-5.40); RDW 16.3 % (11.5-15.5); WBC 5.3 k/uL (3.8-10.6)
[2023-11-22 15:15] LABS: ALT 22 U/L (4-34); AST 76 U/L (14-36); African American GFR (CKD) 59 (>60 ml/min/1.73 sqM); Albumin 3.5 g/dL (3.5-5.0); Alkaline Phosphatase 76 U/L (38-126); Anion Gap 4 mmol/L; Blood Urea Nitrogen 38 mg/dL (7-17); Calcium 8.9 mg/dL (8.4-10.2); Carbon Dioxide 30 mmol/L (22-30); Chloride 104 mmol/L (98-107); Glucose 116 mg/dL (74-99); Magnesium 1.1 mg/dL (1.6-2.3); Non-African American GFR(CKD) 51 (>60 ml/min/1.73 sqM); Phosphorus 3.7 mg/dL (2.5-4.5); Sodium 138 mmol/L (137-145); Total Bilirubin 1.2 mg/dL (0.2-1.3); Total Protein 7.1 g/dL (6.3-8.2)
[2023-11-22 15:20] LABS: Potassium 5.5 mmol/L (3.5-5.1)
[2023-11-22 15:41] LABS: NT-Pro-B-Type Natriuretic Pept 31700 pg/mL
[2023-11-22] MEDS: ENOXAPARIN 40 MG/0.4 ML SYRINGE SQ SCH (15:55)
[2023-11-22] MEDS: GABAPENTIN 300 MG CAP PO SCH (15:55)
--- NOTE | 2023-11-22 18:43 | P.HPIM ---
History of Present Illness H&P Date: 11/22/23 Chief Complaint: Edema This is a pleasant 88-year-old patient, follows with Dr. Abelardo Lofton. Chronic stable medical conditions include diabetes, GERD, hypertension, hyperlipidemia, heart valve problems, CAD with stent. Follows with cash van salesperson Dr. De La Torre. On October 31, 2023: Patient had a cardiac catheterization by Dr. De La Torre. Had a successful stent to the mid LAD, proximal LAD,.. Also found to have severely calcified right and left coronary system. She also went for PCI of the RCA. Patient now presents with increasing swelling of the lower extremity. With blisters on the feet. Uses 2 pillows at night. Some shortness of breath. Able to get around the house. Does use a walker outside the house. No cough no fever no chills. Appetite is okay. Patient is accompanied by her daughter who lives across the street. Review of systems: GEN.: Tired EYES: None HEENT: None NECK: None RESPIRATORY: As above CARDIOVASCULAR: As above] GASTROINTESTINAL: None GENITOURINARY: None MUSCULOSKELETAL: [Joint pains LYMPHATICS: None HEMATOLOGICAL: None PSYCHIATRY: None NEUROLOGICAL: Does use a walker outside the house Social history: Does live alone. Quit smoking 40 years ago. No alcohol. Daughter lives across the street Physical examination: VITAL SIGNS: 98.7, 51, 18, 101/59, 98% room air GENERAL: BMI 34.5, reclining bed awake tired. EYES: Pupils equal. Conjunctiva tiana l. HEENT: External appearance of nose and ears normal, oral cavity grossly normal. NECK: JVD possibly raised; masses not palpable. HEART: First and second heart sounds are normal; edema present. LUNGS: Respiratory rate increased l; fine basilar crackles n. ABDOMEN: Soft, nontender, liver spleen not palpable, no masses palpable. PSYCH: Alert and oriented x3; mood and affect tiana l. MUSCULOSKELETAL:No Clubbing/cyanosis;muscles-grossly intact. OA NEUROLOGICAL: Cranial nerves grossly intact; no facial asymmetry, power and sensation grossly intact. LYMPHATICS: No lymph nodes palpable in the axilla and neck INVESTIGATIONS, reviewed in the clinical context: November 22: White count 5.3 hemoglobin 9.2 platelets 223 potassium 5.5 BUN 38 creatinine 1.0 Troponin I 0.069. proBNP 24499 EKG tracing personally reviewed by me-multiple PVCs. Questionable heart block Chest x-ray film personally reviewed by me: Cardiomegaly. Vascular congestion Assessment and plan: -Acute congestive heart failure exacerbation. EF not known. Likely underlying ischemic cardiomyopathy IV Lasix 40 mg twice daily. Strict I's and O. Fluid restriction 2000 cc a day 2D echocardiogram -Coronary artery disease, with recent stent to the mid LAD, proximal LAD. Also underlying severely calcified right and left coronary system. Also PCI of the RCA: October 31, [address] De La Torre Aspirin. Plavix Lipitor. -PVCs -Abnormal EKG. 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 Accu-Cheks with sliding scale insulin -Mild cellulitis on the feet secondary to breakdown of blisters from CHF IV Ancef -Primary osteoarthritis Tylenol as needed -Microcytic anemia Check iron studies -Hyperkalemia IV Lasix. Stopping lisinopril. -Full code Care was discussed with the patient and daughter at the bedside. Past Medical History Past Medical History: Heart Failure, Diabetes Mellitus, GERD/Reflux, Hyperlipidemia, Hypertension, Skin Disorder Additional Past Medical History / Comment(s): recent adm to [facility] for SOB, adjusted meds, is better, but still SOB w/exertion, possible heart valve problem, sore right leg after caught it on car door pretty much gone History of Any Multi-Drug Resistant Organisms: None Reported Past Surgical History: Section, Heart Catheterization, Heart Catheterization With Stent, Hysterectomy, Joint Replacement, Orthopedic Surgery Additional Past Surgical History / Comment(s): 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 - Past Family History Son(s) Additional Family Medical History / Comment(s): nephritis Medications and Allergies Home Medications Medication Instructions Recorded Confirmed Type Aspirin 81 mg PO HS 07/16/14 11/22/23 History Clopidogrel [Plavix] 75 mg PO DAILY 07/16/14 11/22/23 History Furosemide [Lasix] 40 mg PO DAILY 07/16/14 11/22/23 History Gabapentin [Neurontin] 600 mg PO BID-W/MEALS 07/16/14 11/22/23 History Lansoprazole [Prevacid] 30 mg PO DAILY 07/16/14 11/22/23 History Cholecalciferol [Vitamin D3 (25 1,000 unit PO DAILY@1200 #1 tab 07/21/14 11/22/23 Rx Mcg = 1000 Iu)] Pioglitazone [Actos] 15 mg PO DAILY 10/16/23 11/22/23 History Potassium Chloride ER [K-Dur 10] 10 meq PO DAILY 10/16/23 11/22/23 History Gabapentin 1,200 mg PO HS 10/25/23 11/22/23 History lisinopriL [Zestril] 5 mg PO DAILY #90 tab 10/26/23 11/22/23 Rx Atorvastatin Calcium [Lipitor] 40 mg PO HS 11/22/23 11/22/23 History Doxycycline Hyclate 100 mg PO BID 11/22/23 11/22/23 History ramipriL 2.5 mg PO DAILY 11/22/23 11/22/23 History Allergies Allergy/AdvReac Type Severity Reaction Status Date / Time No Known Allergies Allergy Verified 11/22/23 16:03 Physical Exam Vitals: Vital Signs Temp Pulse Resp BP Pulse Ox 11/22/23 17:56 58 L 18 100/55 98 11/22/23 16:00 54 L 18 101/78 98 11/22/23 15:00 60 18 106/78 98 11/22/23 13:00 56 L 18 104/78 98 11/22/23 11:59 98.7 F 51 L 18 101/59 98 Intake and Output 11/22/23 11/22/23 11/22/23 06:59 14:59 22:59 Other: # Voids 1 # Bowel Movements 1 Weight 74.843 kg Results CBC & Chem 7: 11/22/23 13:57 11/22/23 13:57 Labs: Abnormal Lab Results - Last 24 Hours (Table) 11/22/23 11/22/23 11/22/23 Range/Units 13:57 13:57 13:57 Hgb 9.2 L (11.4-16.0) gm/dL Hct 30.9 L (34.0-46.0) % MCV 79.9 L (80.0-100.0) fL MCH 23.9 L (25.0-35.0) pg MCHC 29.9 L (31.0-37.0) g/dL RDW 16.3 H (11.5-15.5) % Potassium 5.5 H (3.5-5.1) mmol/L BUN 38 H (7-17) mg/dL Glucose 116 H (74-99) mg/dL Magnesium 1.1 L (1.6-2.3) mg/dL AST 76 H (14-36) U/L Troponin I 0.069 H* (0.000-0.034) ng/mL
[2023-11-22] MEDS: VANCOMYCIN 1,250 MG in SODIUM CHLORIDE 0.9% 250 ML IVPB STA (19:34)
[2023-11-22] MEDS: FUROSEMIDE 10 MG/ML 4 ML VIAL IV SCH (19:34)
[2023-11-22] MEDS: INSULIN ASPART (NovoLOG) 100 UNIT/ML VIAL SQ SCH (19:35)
[2023-11-22] MEDS: ASPIRIN 81 MG PO SCH (21:09)
[2023-11-22] MEDS: GABAPENTIN 400 MG CAP PO SCH (21:09)
--- NOTE | 2023-11-22 22:46 | P.CONS ---
History of Present Illness - Reason for Consult Consult date: 11/22/23 Week Requesting physician: Dickson Hua - Chief Complaint Increasing swelling to the lower extremity and redness x days - History of Present Illness Patient is a 88-year-old female with a past medical history significant for diabetes mellitus reflux hypertension hyperlipidemia heart failure presenting to the hospital for evaluation of generalized weakness and also complaining of increasing swelling to bilateral lower extremity after the patient did have a procedure with placement of stents in her heart patient complaining of increasing swelling to bilateral lower extremity and has developed multiple blisters on the foot that has ruptured leading to some superficial ulceration patient be complaining of pain to those lesion to be more of a dull aching to sharp especially if there is touch mild to moderate intensity without radiation denies any foul-smelling drainage with the symptoms the patient was evaluated on presentation to the hospital patient was afebrile and no fever have recorded subsequently patient was nontachycardic hypertensive or hypoxic white count of 5.3 creatinine 1.0 liver isms are normal patient did have a chest x-ray left basilar infiltrate or atelectasis as well as left greater than right effusion patient did received dose of vancomycin and ceftriaxone in the ER infectious disease was consulted for further management of antibiotic therapy Review of Systems Positive point and negatives has been mentioned in the HPI, complete review of systems was performed and all other systems are negative Past Medical History Past Medical History: Heart Failure, Diabetes Mellitus, GERD/Reflux, Hyperlipidemia, Hypertension, Skin Disorder Additional Past Medical History / Comment(s): recent adm to [facility] for SOB, adjusted meds, is better, but still SOB w/exertion, possible heart valve problem, sore right leg after caught it on car door pretty much gone History of Any Multi-Drug Resistant Organisms: None Reported Past Surgical History: Section, Heart Catheterization, Heart Catheterization With Stent, Hysterectomy, Joint Replacement, Orthopedic Surgery Additional Past Surgical History / Comment(s): 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 - Past Family History Son(s) Additional Family Medical History / Comment(s): nephritis Medications and Allergies Home Medications Medication Instructions Recorded Confirmed Type Aspirin 81 mg PO HS 07/16/14 11/22/23 History Clopidogrel [Plavix] 75 mg PO DAILY 07/16/14 11/22/23 History Furosemide [Lasix] 40 mg PO DAILY 07/16/14 11/22/23 History Gabapentin [Neurontin] 600 mg PO BID-W/MEALS 07/16/14 11/22/23 History Lansoprazole [Prevacid] 30 mg PO DAILY 07/16/14 11/22/23 History Cholecalciferol [Vitamin D3 (25 1,000 unit PO DAILY@1200 #1 tab 07/21/14 11/22/23 Rx Mcg = 1000 Iu)] Pioglitazone [Actos] 15 mg PO DAILY 10/16/23 11/22/23 History Potassium Chloride ER [K-Dur 10] 10 meq PO DAILY 10/16/23 11/22/23 History Gabapentin 1,200 mg PO HS 10/25/23 11/22/23 History lisinopriL [Zestril] 5 mg PO DAILY #90 tab 10/26/23 11/22/23 Rx Atorvastatin Calcium [Lipitor] 40 mg PO HS 11/22/23 11/22/23 History Doxycycline Hyclate 100 mg PO BID 11/22/23 11/22/23 History ramipriL 2.5 mg PO DAILY 11/22/23 11/22/23 History Allergies Allergy/AdvReac Type Severity Reaction Status Date / Time No Known Allergies Allergy Verified 11/22/23 16:03 Physical Exam Vitals: Vital Signs Temp Pulse Resp BP Pulse Ox 11/22/23 11:59 98.7 F 51 L 18 101/59 98 Intake and Output 11/22/23 11/22/23 11/22/23 06:59 14:59 22:59 Other: Weight 74.843 kg GENERAL DESCRIPTION: Elderly female lying in bed, no distress. No tachypnea or accessory muscle of respiration use. HEENT: Shows Pallor , no scleral icterus. Oral mucous membrane is dry. No pharyngeal erythema or thrush NECK: Trachea central, no thyromegaly. LUNGS: Unlabored breathing. Decreased breath sound the base HEART: S1, S2, regular rate and rhythm. No loud murmur ABDOMEN: Soft, no tenderness , guarding or rigidity, no organomegaly EXTREMITIES: Diffuse swelling of bilateral extremity did have superficial ulceration from ruptured blister to bilateral foot on the dorsum aspect with some redness SKIN: No rash, no masses palpable. NEUROLOGICAL: The patient is awake, alert, oriented x3, mood and affect normal. Results CBC & Chem 7: 11/22/23 13:57 11/23/23 08:38 Labs: Abnormal Lab Results - Last 24 Hours (Table) 11/22/23 11/22/23 Range/Units 13:57 13:57 Hgb 9.2 L (11.4-16.0) gm/dL Hct 30.9 L (34.0-46.0) % MCV 79.9 L (80.0-100.0) fL MCH 23.9 L (25.0-35.0) pg MCHC 29.9 L (31.0-37.0) g/dL RDW 16.3 H (11.5-15.5) % Potassium 5.5 H (3.5-5.1) mmol/L BUN 38 H (7-17) mg/dL Glucose 116 H (74-99) mg/dL Magnesium 1.1 L (1.6-2.3) mg/dL AST 76 H (14-36) U/L Assessment and Plan (1) Bilateral leg edema Current Visit: Yes Status: Acute Code(s): R60.0 - LOCALIZED EDEMA SNOMED Code(s): 062902506 (2) Bilateral lower leg cellulitis Current Visit: Yes Status: Acute Code(s): L03.116 - CELLULITIS OF LEFT LOWER LIMB; L03.115 - CELLULITIS OF RIGHT LOWER LIMB SNOMED Code(s): 932252109 (3) Skin ulcers of foot, bilateral Current Visit: Yes Status: Acute Code(s): L97.519 - NON-PRS CHRONIC ULCER OTH PRT RIGHT FOOT W UNSP SEVERITY; L97.529 - NON-PRESSURE CHRONIC ULCER OTH PRT LEFT FOOT W UNSP SEVERITY SNOMED Code(s): 51568546 Plan: 1patient presented hospital with increasing swelling to bilateral lower extremity with blister formation. Superficial ulceration from ruptured blister and concerning for cellulitis likely from gram-positive skin grisel in this patient who did have evidence of fluid overload x-ray findings are mostly related to fluid overload CHF rather than pneumonia 2-we will recommend Aquacel dressing to the open blister area followed by Waylon wrap from just above the toe to below the knee change every 48 hour 3-patient to continue with cefazolin for component of cellulitis and no need for Rocephin which will be discontinued We will follow on clinical condition and cultures to further adjust medication if needed Thank you for this consultation we will follow the patient along with you Dictation was produced using [employer] dictation software. please excuse any grammatical, word or spelling errors. Time with Patient: Greater than 30
[2023-11-23 06:34] LABS: Glucose,Whole Blood 90 mg/dL (70-110)
[2023-11-23] MEDS: PANTOPRAZOLE 40 MG TABLET PO SCH (06:49)
--- NOTE | 2023-11-23 08:02 | P.CRDCN ---
History of Present Illness Consult date: 11/23/23 History of present illness: History of Present Illness: The patient is an 88-year-old female, followed by Dr. De La Torre who recently underwent PCI of her RCA and subsequently the LAD with Impella support. Postprocedure she had persistent bleeding from the right femoral artery requiring covered stent. She has a history of severe cardiomyopathy with aortic stenosis of unclear severity. The patient presents with progressive peripheral edema and blisters and evidence of cellulitis. She feels that her breathing overall is better. She denies any chest discomfort, dizziness or palpitations. She denies any PND or orthopnea. She was evaluated by infectious disease and started on antibiotics. She has a history of hypertension, hyperlipidemia and diabetes mellitus. She is a non-smoker. On presentation her EKG is suggestive of atrial fibrillation although the baseline is poor. Her last EKG prior to her discharge last time is suggestive of atrial fibrillation as well. On presentation her BUN was 38, she had a troponin 0.069 and elevated NT proBNP. Medications: Zestril 5 mg daily, Actos 15 mg daily, Prevacid, Lasix 40 mg daily, aspirin once a day, Lipitor 40 mg daily, Plavix 75 mg daily Review of Systems: Respiratory: She has dyspnea on exertion but no recent wheezing or cough GI: No nausea or vomiting . No history of peptic ulcer disease. No recent GI bleed. : No hematuria or dysuria. Nervous System: No stroke or seizure. Physical Examination: 88-year-old female, overweight, alert oriented no apparent distress,Blood pressure 105/70, Heart rate 50 Head: Normocephalic. Eyes: Sclerae nonicteric. Neck: Good carotid upstroke, no bruit, no jugular venous distention. Lungs: Clear to auscultation. Heart: Irregular rate and rhythm, S1-S2 with a systolic murmur, 2/6 at the base Abdomen: Soft nontender, positive bowel sounds no organomegaly. Obese Extremities: +1-2 edema, intact distal pulses. Erythema with blisters noted Labs: BUN 38, creatinine 1, potassium 5.5, NT proBNP 31,700, hemoglobin 9.2. Chest x- ray with pleural effusion EKG: EKG suggestive of atrial fibrillation with occasional PVCs Impression: 1. CHF with known reduced ejection fraction 2. Status post two-vessel stenting 3. Aortic stenosis of unclear severity, patient may have low-flow low gradient AAS 4. History of hypertension 5. History of diabetes 6. Cellulitis 7. Obesity 8. Atrial fibrillation, probable paroxysmal Plan: 1. Continue IV diuretics 2. Add Farxiga 3. Hold Zestril 4. Blood pressure is stable start Entresto in the morning 5. Repeat echocardiogram to evaluate aortic valve further and may require low- dose dobutamine echocardiogram to evaluate aortic valve 6. Antibiotics per infectious disease 7. Initiate anticoagulation and stop aspirin 8. Depending on her progress further recommendations will be made, thank you for this consult we will follow with you Past Medical History Past Medical History: Heart Failure, Diabetes Mellitus, GERD/Reflux, Hyperlipidemia, Hypertension, Skin Disorder Additional Past Medical History / Comment(s): recent adm to [facility] for SOB, adjusted meds, is better, but still SOB w/exertion, possible heart valve problem, sore right leg after caught it on car door pretty much gone History of Any Multi-Drug Resistant Organisms: None Reported Past Surgical History: Section, Heart Catheterization, Heart Catheterization With Stent, Hysterectomy, Joint Replacement, Orthopedic Surgery Additional Past Surgical History / Comment(s): 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, Past Anesthesia/Blood Transfusion Reactions: No Reported Reaction Date of Last Stent Placement:: unsure Past Psychological History: No Psychological Hx Reported Smoking Status: Former smoker Past Alcohol Use History: None Reported Past Drug Use History: None Reported - Past Family History Son(s) Additional Family Medical History / Comment(s): nephritis Medications and Allergies Home Medications Medication Instructions Recorded Confirmed Type Aspirin 81 mg PO HS 07/16/14 11/22/23 History Clopidogrel [Plavix] 75 mg PO DAILY 07/16/14 11/22/23 History Furosemide [Lasix] 40 mg PO DAILY 07/16/14 11/22/23 History Gabapentin [Neurontin] 600 mg PO BID-W/MEALS 07/16/14 11/22/23 History Lansoprazole [Prevacid] 30 mg PO DAILY 07/16/14 11/22/23 History Cholecalciferol [Vitamin D3 (25 1,000 unit PO DAILY@1200 #1 tab 07/21/14 11/22/23 Rx Mcg = 1000 Iu)] Pioglitazone [Actos] 15 mg PO DAILY 10/16/23 11/22/23 History Potassium Chloride ER [K-Dur 10] 10 meq PO DAILY 10/16/23 11/22/23 History Gabapentin 1,200 mg PO HS 10/25/23 11/22/23 History lisinopriL [Zestril] 5 mg PO DAILY #90 tab 10/26/23 11/22/23 Rx Atorvastatin Calcium [Lipitor] 40 mg PO HS 11/22/23 11/22/23 History Doxycycline Hyclate 100 mg PO BID 11/22/23 11/22/23 History ramipriL 2.5 mg PO DAILY 11/22/23 11/22/23 History Allergies Allergy/AdvReac Type Severity Reaction Status Date / Time No Known Allergies Allergy Verified 11/22/23 16:03 Physical Exam Vitals: Vital Signs Temp Pulse Pulse Resp BP BP Pulse Ox 11/23/23 03:32 98.0 F 58 L 19 101/61 94 L 11/23/23 02:17 58 L 19 11/22/23 21:18 58 L 19 11/22/23 18:44 97.6 F 69 22 118/57 93 L 11/22/23 17:56 58 L 18 100/55 98 11/22/23 16:00 54 L 18 101/78 98 11/22/23 15:00 60 18 106/78 98 11/22/23 13:00 56 L 18 104/78 98 11/22/23 11:59 98.7 F 51 L 18 101/59 98 Intake and Output 11/22/23 11/23/23 11/23/23 22:59 06:59 14:59 Other: Voiding Method Toilet Toilet # Voids 1 2 # Bowel Movements 1 Weight 74.843 kg Results 11/22/23 13:57 11/22/23 13:57 Cardiac Enzymes 11/22/23 11/22/23 Range/Units 13:57 13:57 AST 76 H (14-36) U/L Troponin I 0.069 H* (0.000-0.034) ng/mL CBC 11/22/23 Range/Units 13:57 WBC 5.3 (3.8-10.6) k/uL RBC 3.87 (3.80-5.40) m/uL Hgb 9.2 L (11.4-16.0) gm/dL Hct 30.9 L (34.0-46.0) % Plt Count 223 (150-450) k/uL Comprehensive Metabolic Panel 11/22/23 Range/Units 13:57 Sodium 138 (137-145) mmol/L Potassium 5.5 H (3.5-5.1) mmol/L Chloride 104 (98-107) mmol/L Carbon Dioxide 30 (22-30) mmol/L BUN 38 H (7-17) mg/dL Creatinine 1.00 (0.52-1.04) mg/dL Glucose 116 H (74-99) mg/dL Calcium 8.9 (8.4-10.2) mg/dL AST 76 H (14-36) U/L ALT 22 (4-34) U/L Alkaline Phosphatase 76 (38-126) U/L Total Protein 7.1 (6.3-8.2) g/dL Albumin 3.5 (3.5-5.0) g/dL Current Medications Generic Name Dose Route Start Last Admin Trade Name Freq PRN Reason Stop Dose Admin Acetaminophen 650 mg 11/22/23 14:14 Acetaminophen Tab 325 Mg Tab PO Q6HR PRN Mild Pain or Fever > 100.5 Alprazolam 0.25 mg 11/22/23 14:14 Alprazolam 0.25 Mg Tab PO Q6HR PRN Anxiety Atorvastatin Calcium 40 mg 11/23/23 09:00 Atorvastatin 40 Mg Tab PO DAILY [facility] Calcium Carbonate/Glycine 1,000 mg 11/22/23 14:14 Calcium Carbonate 500 Mg Chewable PO Q4HR PRN Dyspepsia Clopidogrel Bisulfate 75 mg 11/23/23 09:00 Clopidogrel 75 Mg Tab PO DAILY [facility] Dapagliflozin 10 mg 11/23/23 09:00 Dapagliflozin Propanediol 10 Mg Tablet PO DAILY [facility] Dextrose/Water 25 ml 11/22/23 14:15 Dextrose 50% Syringe 50 Ml IVP PER PROTOCOL PRN Hypoglycemia Protocol Dextrose/Water 50 ml 11/22/23 14:15 Dextrose 50% Syringe 50 Ml IVP PER PROTOCOL PRN Hypoglycemia Protocol Furosemide 40 mg 11/22/23 14:18 11/23/23 00:27 Furosemide 10 Mg/Ml 4 Ml Vial IV Not Given BID [facility] Gabapentin 1,200 mg 11/22/23 21:00 11/22/23 21:09 Gabapentin 400 Mg Cap PO 1,200 mg HS [facility] Administration Gabapentin 600 mg 11/22/23 16:00 11/22/23 15:55 Gabapentin 300 Mg Cap PO 600 mg BID@0900,1600 [facility] Administration Cefazolin Sodium 1,000 mg/ 50 mls @ 100 mls/hr 11/23/23 00:00 11/23/23 00:27 Sodium Chloride IVPB Not Given Q8HR [facility] Protocol Insulin Aspart 0 unit 11/22/23 17:30 11/23/23 06:47 Insulin Aspart (Novolog) 100 Unit/Ml Vial SQ Not Given AC-TID [facility] Protocol Lactulose 20 gm 11/22/23 14:14 Lactulose 20 Gm/30 Ml Cup PO DAILY PRN Constipation Melatonin 3 mg 11/22/23 14:14 Melatonin 3 Mg Tablet PO HS PRN Insomnia Morphine Sulfate 4 mg 11/22/23 14:02 Morphine Sulfate 4 Mg/Ml Syringe IV Q4HR PRN Severe Pain (Scale 7 to 10) Naloxone HCl 0.2 mg 11/22/23 13:29 Naloxone 0.4 Mg/Ml 1 Ml Vial IV Q2M PRN Opioid Reversal Ondansetron HCl 4 mg 11/22/23 14:14 Ondansetron 4 Mg/2 Ml Vial IVP Q8HR PRN Nausea And Vomiting Pantoprazole Sodium 40 mg 11/23/23 07:30 11/23/23 06:49 Pantoprazole 40 Mg Tablet PO 40 mg [id number] CAL[facility] Administration Pioglitazone HCl 15 mg 11/23/23 09:00 Pioglitazone 15 Mg Tab PO DAILY [facility] Intake and Output 11/22/23 11/23/23 11/23/23 22:59 06:59 14:59 Other: Voiding Method Toilet Toilet # Voids 1 2 # Bowel Movements 1 Weight 74.843 kg 11/22/23 13:57 11/22/23 13:57
[2023-11-23] MEDS ORDERED: lisinopriL 5 MG TAB PO SCH (09:00)
[2023-11-23 09:28] LABS: Potassium 4.2 mmol/L (3.5-5.1)
[2023-11-23 09:29] LABS: African American GFR (CKD) 53 (>60 ml/min/1.73 sqM); Anion Gap 6 mmol/L; Blood Urea Nitrogen 36 mg/dL (7-17); Calcium 9.2 mg/dL (8.4-10.2); Carbon Dioxide 28 mmol/L (22-30); Chloride 106 mmol/L (98-107); Glucose 100 mg/dL (74-99); Non-African American GFR(CKD) 46 (>60 ml/min/1.73 sqM); Sodium 140 mmol/L (137-145)
[2023-11-23 09:30] LABS: INR 1.1 (<1.2); Prothrombin Time 12.3 sec (10.0-12.5)
[2023-11-23 09:31] LABS: Partial Thromboplastin Time 24.3 sec (22.0-30.0)
[2023-11-23] MEDS: DAPAGLIFLOZIN PROPANEDIOL 10 MG TABLET PO SCH (10:06)
[2023-11-23] MEDS: ATORVASTATIN 40 MG TAB PO SCH (10:06)
[2023-11-23] MEDS: CLOPIDOGREL 75 MG TAB PO SCH (10:07)
[2023-11-23] MEDS: PIOGLITAZONE 15 MG TAB PO SCH (10:07)
[2023-11-23] MEDS: APIXABAN 5 MG TAB PO SCH (10:07)
[2023-11-23 12:26] LABS: Glucose,Whole Blood 101 mg/dL (70-110)
--- NOTE | 2023-11-23 12:39 | CA ---
Transthoracic Echo Report Name: Concha Tony Age: 88 Gender: F : 1935 Exam Date: 11/23/2023 11:33 Exam Location: [facility] Ht (in): 58 Wt (lb): 165 Ordering Physician: Wilbur Vick MD ([id number]) Attending/Referring Phys: Proofer Prepress Trina Adams RDCS Procedure CPT: Indications: cm,as Cardiac Hx: Technical Quality: Fair Contrast 1: Total Dose (mL): Contrast 2: Total Dose (mL): MEASUREMENTS (Male / Female) Normal Values 2D ECHO LV Diastolic Diameter PLAX 5.3 cm 4.2 - 5.9 / 3.9 - 5.3 cm LV Systolic Diameter PLAX 4.4 cm IVS Diastolic Thickness 1.1 cm 0.6 - 1.0 / 0.6 - 0.9 cm LVPW Diastolic Thickness 1.2 cm 0.6 - 1.0 / 0.6 - 0.9 cm LV Relative Wall Thickness 0.4 Aortic Root Diameter 3.1 cm LA Systolic Diameter LX 4.2 cm 3.0 - 4.0 / 2.7 - 3.8 cm DOPPLER AV Peak Velocity 218.4 cm/s AV Peak Gradient 19.1 mmHg AV Mean Velocity 156.2 cm/s AV Mean Gradient 10.5 mmHg AV Velocity Time Integral 45.4 cm LVOT Peak Velocity 38.8 cm/s LVOT Peak Gradient 0.6 mmHg LVOT Velocity Time Integral 7.2 cm MR Peak Velocity 228.7 cm/s MR Peak Gradient 20.9 mmHg Mitral E Point Velocity 102.0 cm/s Mitral A Point Velocity 54.2 cm/s Mitral E to A Ratio 1.9 MV Deceleration Time 146.2 ms MV E' Velocity 7.4 cm/s Mitral E to MV E' Ratio 13.7 TR Peak Velocity 284.6 cm/s TR Peak Gradient 32.4 mmHg PV Peak Velocity 68.9 cm/s PV Peak Gradient 1.9 mmHg FINDINGS Left Ventricle Left ventricular ejection fraction is estimated at 20-25%. Mildly increased left ventricular wall thickness.left ventricular cavity size normal. Severe global hypokinesis Right Ventricle Normal right ventricular size and function. Right Atrium Normal right atrial size. Left Atrium Mildly increased left atrial diameter. Mitral Valve Moderate mitral regurgitation.moderate mitral annular calcification. Aortic Valve Mild aortic stenosis with a peak gradient of 19.1 mmHg and a mean gradient of 10.5 mmHg.aortic valve sclerosis. The severity of the aortic valve stenosis could be underestimated, representing low flow no gradient aortic stenosis. Tricuspid Valve [id number] tricuspid regurgitation.structurally normal tricuspid valve. Pulmonic Valve Pulmonic valve not well visualized. Pericardium No pericardial effusion. Aorta Normal size aortic root and proximal ascending aorta. CONCLUSIONS 1. Severely impaired left ventricular systolic function with global hypokinesis 2. Moderate mitral with mild to moderate tricuspid regurgitation 3. Severely calcified aortic valve with a mean gradient 11 mmHg. Aortic valve stenosis could be underestimated because of low flow status. Previewed by: Dr. Wilbur Vick MD (Electronically Signed) Final Date: 23 November 2023 12:38
--- NOTE | 2023-11-23 14:09 | P.PN ---
Progress Note - Text Progress Note Date: 11/23/23 Chief Complaint: Edema This is a pleasant 88-year-old patient, follows with Dr. Abelardo Lofton. Chronic stable medical conditions include diabetes, GERD, hypertension, hyperlipidemia, heart valve problems, CAD with stent. Follows with patent counsel Dr. De La Torre. On October 31, 2023: Patient had a cardiac catheterization by Dr. De La Torre. Had a successful stent to the mid LAD, proximal LAD,.. Also found to have severely calcified right and left coronary system. She also went for PCI of the RCA. Patient now presents with increasing swelling of the lower extremity. With blisters on the feet. Uses 2 pillows at night. Some shortness of breath. Able to get around the house. Does use a walker outside the house. No cough no fever no chills. Appetite is okay. Patient is accompanied by her daughter who lives across the street. November 23: Sitting up in bed. Daughter at the bedside. Breathing better. Decrease in lower extremity edema. Remains on IV Lasix. Being followed by cardiology. Discussed with patient. Increase activity. Active Medications Acetaminophen (Acetaminophen Tab 325 Mg Tab) 650 mg PO Q6HR PRN PRN Reason: Mild Pain or Fever > 100.5 Alprazolam (Alprazolam 0.25 Mg Tab) 0.25 mg PO Q6HR PRN PRN Reason: Anxiety Apixaban (Apixaban 5 Mg Tab) 5 mg PO BID [facility]; Protocol Last Admin: 11/23/23 10:07 Dose: 5 mg Atorvastatin Calcium (Atorvastatin 40 Mg Tab) 40 mg PO DAILY [facility] Last Admin: 11/23/23 10:06 Dose: 40 mg Calcium Carbonate/Glycine (Calcium Carbonate 500 Mg Chewable) 1,000 mg PO Q4HR PRN PRN Reason: Dyspepsia Clopidogrel Bisulfate (Clopidogrel 75 Mg Tab) 75 mg PO DAILY [facility] Last Admin: 11/23/23 10:07 Dose: 75 mg Dapagliflozin (Dapagliflozin Propanediol 10 Mg Tablet) 10 mg PO DAILY [facility] Last Admin: 11/23/23 10:06 Dose: 10 mg Dextrose/Water (Dextrose 50% Syringe 50 Ml) 25 ml IVP PER PROTOCOL PRN; Protocol PRN Reason: Hypoglycemia Dextrose/Water (Dextrose 50% Syringe 50 Ml) 50 ml IVP PER PROTOCOL PRN; Protocol PRN Reason: Hypoglycemia Furosemide (Furosemide 10 Mg/Ml 4 Ml Vial) 40 mg IV BID [facility] Last Admin: 11/23/23 10:06 Dose: 40 mg Gabapentin (Gabapentin 400 Mg Cap) 1,200 mg PO HS [facility] Last Admin: 11/22/23 21:09 Dose: 1,200 mg Gabapentin (Gabapentin 300 Mg Cap) 600 mg PO BID@0900,1600 [facility] Last Admin: 11/23/23 10:07 Dose: 600 mg Cefazolin Sodium 1,000 mg/ (Sodium Chloride) 50 mls @ 100 mls/hr IVPB Q8HR [facility]; Protocol Last Admin: 11/23/23 10:24 Dose: 100 mls/hr Insulin Aspart (Insulin Aspart (Novolog) 100 Unit/Ml Vial) 0 unit SQ AC-TID [facility]; Protocol Last Admin: 11/23/23 13:09 Dose: Not Given Lactulose (Lactulose 20 Gm/30 Ml Cup) 20 gm PO DAILY PRN PRN Reason: Constipation Melatonin (Melatonin 3 Mg Tablet) 3 mg PO HS PRN PRN Reason: Insomnia Morphine Sulfate (Morphine Sulfate 4 Mg/Ml Syringe) 4 mg IV Q4HR PRN PRN Reason: Severe Pain (Scale 7 to 10) Naloxone HCl (Naloxone 0.4 Mg/Ml 1 Ml Vial) 0.2 mg IV Q2M PRN PRN Reason: Opioid Reversal Ondansetron HCl (Ondansetron 4 Mg/2 Ml Vial) 4 mg IVP Q8HR PRN PRN Reason: Nausea And Vomiting Pantoprazole Sodium (Pantoprazole 40 Mg Tablet) 40 mg PO AC-BRKFST [facility] Last Admin: 11/23/23 06:49 Dose: 40 mg Pioglitazone HCl (Pioglitazone 15 Mg Tab) 15 mg PO DAILY [facility] Last Admin: 11/23/23 10:07 Dose: 15 mg Sacubitril/Valsartan (Sacubitril/Valsartan 24 Mg-26 Mg Tablet) 1 each PO BID [facility] Social history: Does live alone. Quit smoking 40 years ago. No alcohol. Daughter lives across the street Physical examination: VITAL SIGNS: 97.6, 81, 16, 109/82, 99% room air GENERAL: Sitting up in bed, looking appear EYES: Pupils equal. Conjunctiva tiana l. HEENT: External appearance of nose and ears normal, oral cavity grossly normal. NECK: JVD possibly raised; masses not palpable. HEART: First and second heart sounds are normal; edema decreased. LUNGS: Respiratory rate increased l; decreased basal crackles ABDOMEN: Soft, nontender, liver spleen not palpable, no masses palpable. PSYCH: Alert and oriented x3; mood and affect tiana l. MUSCULOSKELETAL:No Clubbing/cyanosis;muscles-grossly intact. OA INVESTIGATIONS, reviewed in the clinical context: 2D echocardiogram: EF 20-25% severe global hypokinesis. Moderate mitral regurgitation, moderate mitral annular calcification. Tricuspid regurgitation. November 23: Potassium 4.2 BUN 36 creatinine 1.08 November 22: White count 5.3 hemoglobin 9.2 platelets 223 potassium 5.5 BUN 38 creatinine 1.0 Troponin I 0.069. proBNP [id number] EKG tracing personally reviewed by me-multiple PVCs. Questionable heart block Chest x-ray film personally reviewed by me: Cardiomegaly. Vascular congestion Assessment and plan: -Acute congestive heart failure exacerbation. From systolic dysfunction EF 20- 25% ischemic cardiomyopathy: Slow to respond IV Lasix 40 mg twice daily. Strict I's and O. Fluid restriction 2000 cc a day -Moderate mitral, tricuspid regurgitation -Atrial fibrillation -Coronary artery disease, with recent stent to the mid LAD, proximal LAD. Also underlying severely calcified right and left coronary system. Also PCI of the RCA: October 31, [address] De La Torre Aspirin. Plavix Lipitor. 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 Accu-Cheks with sliding scale insulin -Mild cellulitis on the feet secondary to breakdown of blisters from CHF IV Ancef -Primary osteoarthritis Tylenol as needed -Microcytic anemia Check iron studies -Hyperkalemia IV Lasix. Stopping lisinopril. -Full code Discussed with the patient. Increase activity. Follow Past Medical History Past Medical History: Heart Failure, Diabetes Mellitus, GERD/Reflux, Hyperlipidemia, Hypertension, Skin Disorder Additional Past Medical History / Comment(s): recent adm to [facility] for SOB, adjusted meds, is better, but still SOB w/exertion, possible heart valve problem, sore right leg after caught it on car door pretty much gone History of Any Multi-Drug Resistant Organisms: None Reported Past Surgical History: Section, Heart Catheterization, Heart Catheterization With Stent, Hysterectomy, Joint Replacement, Orthopedic Surgery Additional Past Surgical History / Comment(s): 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
--- NOTE | 2023-11-23 15:36 | P.PN ---
Subjective Progress Note Date: 11/23/23 Principal diagnosis: Reason for follow-up is bilateral lower extremity ulcer and cellulitis Patient is a 88-year-old female with a past medical history significant for diabetes mellitus reflux hypertension hyperlipidemia heart failure presenting to the hospital for evaluation of generalized weakness and also complaining of increasing swelling to bilateral lower extremity along with blisters and superficial ulceration and concerning for cellulitis. On today's evaluation that is 11/23/2023, the patient is afebrile, patient is on room air, the patient denies chest pain shortness of breath or cough, patient denies nausea no vomiting no abdominal pain and no diarrhea denies any worsening pain to the lower extremity. No CBC was done today, creatinine is 1.08 Objective - Vital Signs Vital signs: Vital Signs Temp 97.6 F 11/23/23 07:00 Pulse 81 11/23/23 07:00 Resp 16 11/23/23 07:00 BP 109/82 11/23/23 07:00 Pulse Ox 95 11/23/23 12:37 FiO2 Intake & Output 11/22/23 11/23/23 11/23/23 18:59 06:59 18:59 Weight 74.843 kg 74.843 kg Other: Voiding Method Toilet # Voids 1 2 1 # Bowel Movements 1 1 - Exam GENERAL DESCRIPTION: An elderly female lying in bed in no distress RESPIRATORY SYSTEM: Unlabored breathing , decreased breath sounds at bases HEART: S1 S2 regular rate and rhythm , ABDOMEN: Soft , no tenderness EXTREMITIES: Diffuse swelling to bilateral extremity did have superficial ulceration bilateral feet with minimal redness - Labs CBC & Chem 7: 11/22/23 13:57 11/23/23 08:38 Labs: Abnormal Lab Results - Last 24 Hours (Table) 11/22/23 11/22/23 11/22/23 Range/Units 13:57 13:57 13:57 Hgb 9.2 L (11.4-16.0) gm/dL Hct 30.9 L (34.0-46.0) % MCV 79.9 L (80.0-100.0) fL MCH 23.9 L (25.0-35.0) pg MCHC 29.9 L (31.0-37.0) g/dL RDW 16.3 H (11.5-15.5) % Potassium 5.5 H (3.5-5.1) mmol/L BUN 38 H (7-17) mg/dL Creatinine (0.52-1.04) mg/dL Glucose 116 H (74-99) mg/dL Magnesium 1.1 L (1.6-2.3) mg/dL AST 76 H (14-36) U/L Troponin I 0.069 H* (0.000-0.034) ng/mL 11/23/23 Range/Units 08:38 Hgb (11.4-16.0) gm/dL Hct (34.0-46.0) % MCV (80.0-100.0) fL MCH (25.0-35.0) pg MCHC (31.0-37.0) g/dL RDW (11.5-15.5) % Potassium (3.5-5.1) mmol/L BUN 36 H (7-17) mg/dL Creatinine 1.08 H (0.52-1.04) mg/dL Glucose 100 H (74-99) mg/dL Magnesium (1.6-2.3) mg/dL AST (14-36) U/L Troponin I (0.000-0.034) ng/mL Assessment and Plan (1) Bilateral lower leg cellulitis Current Visit: Yes Status: Acute Code(s): L03.116 - CELLULITIS OF LEFT LOWER LIMB; L03.115 - CELLULITIS OF RIGHT LOWER LIMB SNOMED Code(s): 256980186 (2) Skin ulcers of foot, bilateral Current Visit: Yes Status: Acute Code(s): L97.519 - NON-PRS CHRONIC ULCER OTH PRT RIGHT FOOT W UNSP SEVERITY; L97.529 - NON-PRESSURE CHRONIC ULCER OTH PRT LEFT FOOT W UNSP SEVERITY SNOMED Code(s): 67991482 Plan: 1patient presented hospital with increasing swelling to bilateral lower extremity with blister formation. Superficial ulceration from ruptured blister and concerning for cellulitis likely from gram-positive skin grisel in this patient who did have evidence of fluid overload x-ray findings are mostly related to fluid overload CHF rather than pneumonia 2-patient has been advised Aquacel dressing to the open blister area followed by Waylon wrap from just above the toe to below the knee change every 48 hour 3-patient to continue with cefazolin and monitor clinical course closely Dictation was produced using [employer] dictation software. please excuse any grammatical, word or spelling errors. Time with Patient: Less than 30
[2023-11-23 17:46] LABS: Glucose,Whole Blood 173 mg/dL (70-110)
[2023-11-23 20:07] LABS: Glucose,Whole Blood 148 mg/dL (70-110)
[2023-11-24 05:33] LABS: Glucose,Whole Blood 100 mg/dL (70-110)
[2023-11-24 06:55] LABS: African American GFR (CKD) 51 (>60 ml/min/1.73 sqM); Anion Gap 4 mmol/L; Blood Urea Nitrogen 35 mg/dL (7-17); Calcium 8.6 mg/dL (8.4-10.2); Carbon Dioxide 31 mmol/L (22-30); Chloride 103 mmol/L (98-107); Glucose 89 mg/dL (74-99); Non-African American GFR(CKD) 44 (>60 ml/min/1.73 sqM); Potassium 3.9 mmol/L (3.5-5.1); Sodium 138 mmol/L (137-145)
[2023-11-24 07:21] LABS: NT-Pro-B-Type Natriuretic Pept 39200 pg/mL
[2023-11-24] MEDS: SACUBITRIL/VALSARTAN 24 MG-26 MG TABLET PO SCH (09:49)
[2023-11-24 12:18] LABS: Glucose,Whole Blood 134 mg/dL (70-110)
--- NOTE | 2023-11-24 13:27 | P.PN ---
Subjective Progress Note Date: 11/24/23 Principal diagnosis: Reason for follow-up is bilateral lower extremity ulcer and cellulitis Patient is a 88-year-old female with a past medical history significant for diabetes mellitus reflux hypertension hyperlipidemia heart failure presenting to the hospital for evaluation of generalized weakness and also complaining of increasing swelling to bilateral lower extremity along with blisters and superficial ulceration and concerning for cellulitis. On today's evaluation that is 11/24/2023, the patient denies any fever or any chills, patient is breathing comfortably on room air, the patient denies chest pain shortness of breath and no significant cough, patient denies abdominal pain, no nausea vomiting or diarrhea. Swelling and discomfort to the leg slightly decreased. Patient did have a creatinine 1.12 blood cultures pending Objective - Vital Signs Vital signs: Vital Signs Temp 97.6 F 11/24/23 07:00 Pulse 94 11/24/23 07:00 Resp 16 11/24/23 07:00 BP 124/69 11/24/23 07:00 Pulse Ox 98 11/24/23 07:00 FiO2 Intake & Output 11/23/23 11/24/23 11/24/23 18:59 06:59 18:59 Intake Total 519 500 Balance 519 500 Weight 71.8 kg Intake: Oral 519 500 Other: Voiding Method Toilet # Voids 1 2 # Bowel Movements 1 - Exam GENERAL DESCRIPTION: An elderly female lying in bed in no distress RESPIRATORY SYSTEM: Unlabored breathing , decreased breath sounds at bases HEART: S1 S2 regular rate and rhythm , ABDOMEN: Soft , no tenderness EXTREMITIES: Diffuse swelling to bilateral extremity did have superficial ulceration bilateral feet with minimal redness - Labs CBC & Chem 7: 11/22/23 13:57 11/24/23 06:03 Labs: Abnormal Lab Results - Last 24 Hours (Table) 11/23/23 11/23/23 11/24/23 Range/Units 17:45 20:05 06:03 Carbon Dioxide 31 H (22-30) mmol/L BUN 35 H (7-17) mg/dL Creatinine 1.12 H (0.52-1.04) mg/dL POC Glucose (mg/dL) 173 H 148 H (70-110) mg/dL Microbiology - Last 24 Hours (Table) 11/22/23 13:57 Blood Culture - Preliminary Blood Assessment and Plan (1) Bilateral lower leg cellulitis Current Visit: Yes Status: Acute Code(s): L03.116 - CELLULITIS OF LEFT LOWER LIMB; L03.115 - CELLULITIS OF RIGHT LOWER LIMB SNOMED Code(s): 088493562 (2) Skin ulcers of foot, bilateral Current Visit: Yes Status: Acute Code(s): L97.519 - NON-PRS CHRONIC ULCER OTH PRT RIGHT FOOT W UNSP SEVERITY; L97.529 - NON-PRESSURE CHRONIC ULCER OTH PRT LEFT FOOT W UNSP SEVERITY SNOMED Code(s): 71038710 Plan: 1patient presented hospital with increasing swelling to bilateral lower extremity with blister formation. Superficial ulceration from ruptured blister and concerning for cellulitis likely from gram-positive skin grisel in this patient who did have evidence of fluid overload x-ray findings are mostly related to fluid overload CHF rather than pneumonia 2-discussed with the nursing staff to apply Aquacel dressing to the open blister area followed by Waylon wrap from just above the toe to below the knee change every 48 hour 3-patient to continue with cefazolin while inpatient and monitor clinical course closely Dictation was produced using [employer] dictation software. please excuse any grammatical, word or spelling errors. Time with Patient: Less than 30
[2023-11-24] MEDS ORDERED: VANCOMYCIN 1,250 MG in SODIUM CHLORIDE 0.9% 250 ML IVPB SCH (17:00)
--- NOTE | 2023-11-24 17:12 | P.PN ---
Progress Note - Text Progress Note Date: 11/24/23 Chief Complaint: Edema This is a pleasant 88-year-old patient, follows with Dr. Abelardo Lofton. Chronic stable medical conditions include diabetes, GERD, hypertension, hyperlipidemia, heart valve problems, CAD with stent. Follows with enamel drier Dr. De La Torre. On October 31, 2023: Patient had a cardiac catheterization by Dr. De La Torre. Had a successful stent to the mid LAD, proximal LAD,.. Also found to have severely calcified right and left coronary system. She also went for PCI of the RCA. Patient now presents with increasing swelling of the lower extremity. With blisters on the feet. Uses 2 pillows at night. Some shortness of breath. Able to get around the house. Does use a walker outside the house. No cough no fever no chills. Appetite is okay. Patient is accompanied by her daughter who lives across the street. November 23: Sitting up in bed. Daughter at the bedside. Breathing better. Decrease in lower extremity edema. Remains on IV Lasix. Being followed by cardiology. Discussed with patient. Increase activity. November 24: Feeling better. Tolerating diet. Edema going down. On IV Lasix. Spoke to daughter at bedside. Patient to sit up in a chair. Active Medications Acetaminophen (Acetaminophen Tab 325 Mg Tab) 650 mg PO Q6HR PRN PRN Reason: Mild Pain or Fever > 100.5 Alprazolam (Alprazolam 0.25 Mg Tab) 0.25 mg PO Q6HR PRN PRN Reason: Anxiety Apixaban (Apixaban 5 Mg Tab) 5 mg PO BID [facility]; Protocol Last Admin: 11/24/23 09:49 Dose: 5 mg Atorvastatin Calcium (Atorvastatin 40 Mg Tab) 40 mg PO DAILY [facility] Last Admin: 11/24/23 09:48 Dose: 40 mg Calcium Carbonate/Glycine (Calcium Carbonate 500 Mg Chewable) 1,000 mg PO Q4HR PRN PRN Reason: Dyspepsia Clopidogrel Bisulfate (Clopidogrel 75 Mg Tab) 75 mg PO DAILY [facility] Last Admin: 11/24/23 09:49 Dose: 75 mg Dapagliflozin (Dapagliflozin Propanediol 10 Mg Tablet) 10 mg PO DAILY [facility] Last Admin: 11/24/23 09:49 Dose: 10 mg Dextrose/Water (Dextrose 50% Syringe 50 Ml) 25 ml IVP PER PROTOCOL PRN; Protocol PRN Reason: Hypoglycemia Dextrose/Water (Dextrose 50% Syringe 50 Ml) 50 ml IVP PER PROTOCOL PRN; Protocol PRN Reason: Hypoglycemia Furosemide (Furosemide 10 Mg/Ml 4 Ml Vial) 40 mg IV BID [facility] Last Admin: 11/24/23 09:48 Dose: 40 mg Gabapentin (Gabapentin 400 Mg Cap) 1,200 mg PO HS [facility] Last Admin: 11/23/23 20:48 Dose: 1,200 mg Gabapentin (Gabapentin 300 Mg Cap) 600 mg PO BID@0900,1600 [facility] Last Admin: 11/24/23 16:56 Dose: 600 mg Cefazolin Sodium 1,000 mg/ (Sodium Chloride) 50 mls @ 100 mls/hr IVPB Q12HR [facility]; Protocol Insulin Aspart (Insulin Aspart (Novolog) 100 Unit/Ml Vial) 0 unit SQ AC-TID [facility]; Protocol Last Admin: 11/24/23 12:30 Dose: Not Given Lactulose (Lactulose 20 Gm/30 Ml Cup) 20 gm PO DAILY PRN PRN Reason: Constipation Melatonin (Melatonin 3 Mg Tablet) 3 mg PO HS PRN PRN Reason: Insomnia Morphine Sulfate (Morphine Sulfate 4 Mg/Ml Syringe) 4 mg IV Q4HR PRN PRN Reason: Severe Pain (Scale 7 to 10) Naloxone HCl (Naloxone 0.4 Mg/Ml 1 Ml Vial) 0.2 mg IV Q2M PRN PRN Reason: Opioid Reversal Ondansetron HCl (Ondansetron 4 Mg/2 Ml Vial) 4 mg IVP Q8HR PRN PRN Reason: Nausea And Vomiting Pantoprazole Sodium (Pantoprazole 40 Mg Tablet) 40 mg PO AC-BRKFST [facility] Last Admin: 11/24/23 05:28 Dose: 40 mg Pioglitazone HCl (Pioglitazone 15 Mg Tab) 15 mg PO DAILY [facility] Last Admin: 11/24/23 09:49 Dose: 15 mg Sacubitril/Valsartan (Sacubitril/Valsartan 24 Mg-26 Mg Tablet) 1 each PO BID [facility] Last Admin: 11/24/23 09:49 Dose: 1 each Social history: Does live alone. Quit smoking 40 years ago. No alcohol. Daughter lives across the street Physical examination: VITAL SIGNS: 98.1, 85, 16, 98/58, 95% room air GENERAL: Reclining in bed, comfortable EYES: Pupils equal. Conjunctiva tiana l. HEENT: External appearance of nose and ears normal, oral cavity grossly normal. NECK: JVD possibly raised; masses not palpable. HEART: First and second heart sounds are normal; edema decreased. LUNGS: Respiratory rate normal l; decreased basal crackles ABDOMEN: Soft, nontender, liver spleen not palpable, no masses palpable. PSYCH: Alert and oriented x3; mood and affect tiana l. MUSCULOSKELETAL:No Clubbing/cyanosis;muscles-grossly intact. OA INVESTIGATIONS, reviewed in the clinical context: November 24: Potassium 3.8 BUN 35 creatinine 1.12 2D echocardiogram: EF 20-25% severe global hypokinesis. Moderate mitral regurgitation, moderate mitral annular calcification. Tricuspid regurgitation. November 23: Potassium 4.2 BUN 36 creatinine 1.08 November 22: White count 5.3 hemoglobin 9.2 platelets 223 potassium 5.5 BUN 38 creatinine 1.0 Troponin I 0.069. proBNP [id number] EKG tracing personally reviewed by me-multiple PVCs. Questionable heart block Chest x-ray film personally reviewed by me: Cardiomegaly. Vascular congestion Assessment and plan: -Acute congestive heart failure exacerbation. From systolic dysfunction EF 20- 25% ischemic cardiomyopathy: Improving IV Lasix 40 mg twice daily. Strict I's and O. Fluid restriction 2000 cc a day -Moderate mitral, tricuspid regurgitation -Atrial fibrillation -Coronary artery disease, with recent stent to the mid LAD, proximal LAD. Also underlying severely calcified right and left coronary system. Also PCI of the RCA: October 31, [address] De La Torre Aspirin. Plavix Lipitor. 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 Accu-Cheks with sliding scale insulin -Mild cellulitis on the feet secondary to breakdown of blisters from CHF IV Ancef -Primary osteoarthritis Tylenol as needed -Microcytic anemia Check iron studies -Hyperkalemia: Corrected IV Lasix. Stopping lisinopril. -Full code Continue IV Lasix another 24 hours. Check labs. Hopefully home in next 24 to 48 hours. Past Medical History Past Medical History: Heart Failure, Diabetes Mellitus, GERD/Reflux, Hyperlipidemia, Hypertension, Skin Disorder Additional Past Medical History / Comment(s): recent adm to [facility] for SOB, adjusted meds, is better, but still SOB w/exertion, possible heart valve problem, sore right leg after caught it on car door pretty much gone History of Any Multi-Drug Resistant Organisms: None Reported Past Surgical History: Section, Heart Catheterization, Heart Catheterization With Stent, Hysterectomy, Joint Replacement, Orthopedic Surgery Additional Past Surgical History / Comment(s): 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
[2023-11-24 17:31] LABS: Glucose,Whole Blood 133 mg/dL (70-110)
--- NOTE | 2023-11-24 17:44 | P.PN ---
Subjective Progress Note Date: 11/24/23 Progress note 11/24/2023 Patient denies having any active chest pain chest pressure. She still appears mildly volume overloaded. Will continue IV diuretics for next 1 to 2 days BP 98/58, heart rate 85 Lab shows creatinine 1.12. Yesterday it was 1.08, BUN 35 yesterday at 36, hemoglobin 9.2, BNP 39,000 History of Present Illness: The patient is an 88-year-old female, followed by Dr. De La Torre who recently u nderwent PCI of her RCA and subsequently the LAD with Impella support. Postprocedure she had persistent bleeding from the right femoral artery requiring covered stent. She has a history of severe cardiomyopathy with aortic stenosis of unclear severity. The patient presents with progressive peripheral edema and blisters and evidence of cellulitis. She feels that her breathing overall is better. She denies any chest discomfort, dizziness or palpitations. She denies any PND or orthopnea. She was evaluated by infectious disease and started on antibiotics. She has a history of hypertension, hyperlipidemia and diabetes mellitus. She is a non-smoker. On presentation her EKG is suggestive of atrial fibrillation although the baseline is poor. Her last EKG prior to her discharge last time is suggestive of atrial fibrillation as well. On presentation her BUN was 38, she had a troponin 0.069 and elevated NT proBNP. Medications: Zestril 5 mg daily, Actos 15 mg daily, Prevacid, Lasix 40 mg daily, aspirin once a day, Lipitor 40 mg daily, Plavix 75 mg daily Review of Systems: Respiratory: She has dyspnea on exertion but no recent wheezing or cough GI: No nausea or vomiting . No history of peptic ulcer disease. No recent GI bleed. : No hematuria or dysuria. Nervous System: No stroke or seizure. Physical Examination: 88-year-old female, overweight, alert oriented no apparent distress,Blood pressure 105/70, Heart rate 50 Head: Normocephalic. Eyes: Sclerae nonicteric. Neck: Good carotid upstroke, no bruit, no jugular venous distention. Lungs: Clear to auscultation. Heart: Irregular rate and rhythm, S1-S2 with a systolic murmur, 2/6 at the base Abdomen: Soft nontender, positive bowel sounds no organomegaly. Obese Extremities: +1-2 edema, intact distal pulses. Erythema with blisters noted Labs: BUN 38, creatinine 1, potassium 5.5, NT proBNP 31,700, hemoglobin 9.2. Chest x- ray with pleural effusion EKG: EKG suggestive of atrial fibrillation with occasional PVCs Impression: 1. Acute HFrEF exacerbation EF 2025% 2. Status post two-vessel stenting. S/p covered stent placement and right common femoral 3. Aortic stenosis of unclear severity, patient may have low-flow low gradient AAS 4. History of hypertension 5. History of diabetes 6. Cellulitis 7. Obesity 8. Atrial fibrillation, probable paroxysmal Repeat echocardiogram showed an EF of 20% with mild to moderate aortic stenosis. This is a limited echo which was poor quality. Plan: Still appears volume overloaded continue IV diuretics for next 1 to 2 days. Monitor renal function and urine output and electrolytes Continue Eliquis 5 mg twice daily, Plavix 75 mg daily, atorvastatin 40 mg daily Lasix 40 mg twice daily, Entresto 24 to 26 mg twice daily, Farxiga 10 mg daily Antibiotics as per infectious disease Outpatient detailed echo for low-flow low gradient aortic stenosis evaluation Objective - Vital Signs Vital signs: Vital Signs Temp 98.1 F 11/24/23 14:49 Pulse 85 11/24/23 14:49 Resp 16 11/24/23 14:49 BP 98/58 11/24/23 14:30 Pulse Ox 95 11/24/23 14:49 FiO2 Intake & Output 11/23/23 11/24/23 11/24/23 18:59 06:59 18:59 Intake Total 519 500 Output Total 350 Balance 519 150 Weight 71.8 kg Intake: Oral 519 500 Output: Urine 350 Other: Voiding Method Toilet Bedside Commode # Voids 1 2 # Bowel Movements 1 - Labs CBC & Chem 7: 11/22/23 13:57 11/24/23 06:03 Labs: Abnormal Lab Results - Last 24 Hours (Table) 11/23/23 11/23/23 11/24/23 Range/Units 17:45 20:05 06:03 Carbon Dioxide 31 H (22-30) mmol/L BUN 35 H (7-17) mg/dL Creatinine 1.12 H (0.52-1.04) mg/dL POC Glucose (mg/dL) 173 H 148 H (70-110) mg/dL 11/24/23 11/24/23 Range/Units 12:16 17:29 Carbon Dioxide (22-30) mmol/L BUN (7-17) mg/dL Creatinine (0.52-1.04) mg/dL POC Glucose (mg/dL) 134 H 133 H (70-110) mg/dL Microbiology - Last 24 Hours (Table) 11/22/23 13:57 Blood Culture - Preliminary Blood
[2023-11-24 20:14] LABS: Glucose,Whole Blood 193 mg/dL (70-110)
[2023-11-24] MEDS: ACETAMINOPHEN TAB 325 MG TAB PO PRN (23:01)
[2023-11-25 06:08] LABS: Glucose,Whole Blood 101 mg/dL (70-110)
[2023-11-25 07:17] LABS: Glucose,Whole Blood 87 mg/dL (70-110)
[2023-11-25 07:53] LABS: African American GFR (CKD) 47 (>60 ml/min/1.73 sqM); Anion Gap 3 mmol/L; Blood Urea Nitrogen 34 mg/dL (7-17); Calcium 8.1 mg/dL (8.4-10.2); Carbon Dioxide 33 mmol/L (22-30); Chloride 102 mmol/L (98-107); Glucose 87 mg/dL (74-99); Non-African American GFR(CKD) 41 (>60 ml/min/1.73 sqM); Potassium 3.8 mmol/L (3.5-5.1); Sodium 138 mmol/L (137-145)
[2023-11-25 11:38] LABS: Glucose,Whole Blood 118 mg/dL (70-110)
--- NOTE | 2023-11-25 13:31 | P.PN ---
Subjective Progress Note Date: 11/25/23 Principal diagnosis: Reason for follow-up is bilateral lower extremity ulcer and cellulitis Patient is a 88-year-old female with a past medical history significant for diabetes mellitus reflux hypertension hyperlipidemia heart failure presenting to the hospital for evaluation of generalized weakness and also complaining of increasing swelling to bilateral lower extremity along with blisters and superficial ulceration and concerning for cellulitis. On today's evaluation that is 11/25/2023,the patient remains to be afebrile, patient is on room air not requiring supplemental oxygen and denies any shortness of breath no chest pain or cough.Patient denies having any nausea or vomiting, no abdominal pain and no diarrhea has been reported lower extremity swelling and discomfort has decreased in intensity. Patient creatinine 1.20 no CBC was done today blood culture negative Objective - Vital Signs Vital signs: Vital Signs Temp 97.2 F L 11/25/23 07:00 Pulse 88 11/25/23 07:00 Resp 16 11/25/23 07:00 BP 95/50 11/25/23 07:00 Pulse Ox 96 11/25/23 07:00 FiO2 Intake & Output 11/24/23 11/25/23 11/25/23 18:59 06:59 18:59 Intake Total 500 Output Total 350 875 200 Balance 150 -875 -200 Weight 71.4 kg Intake: Oral 500 Output: Urine 350 875 200 Other: Voiding Method Bedside Commode Bedside Commode Bedside Commode # Voids 1 # Bowel Movements 1 - Exam GENERAL DESCRIPTION: An elderly female lying in bed in no distress RESPIRATORY SYSTEM: Unlabored breathing , decreased breath sounds at bases HEART: S1 S2 regular rate and rhythm , ABDOMEN: Soft , no tenderness EXTREMITIES: Diffuse swelling to bilateral extremity did have superficial ulceration bilateral feet with minimal redness - Labs CBC & Chem 7: 11/22/23 13:57 11/25/23 06:52 Labs: Abnormal Lab Results - Last 24 Hours (Table) 11/24/23 11/24/23 11/25/23 Range/Units 17:29 20:13 06:52 Carbon Dioxide 33 H (22-30) mmol/L BUN 34 H (7-17) mg/dL Creatinine 1.20 H (0.52-1.04) mg/dL POC Glucose (mg/dL) 133 H 193 H (70-110) mg/dL Calcium 8.1 L (8.4-10.2) mg/dL 11/25/23 Range/Units 11:36 Carbon Dioxide (22-30) mmol/L BUN (7-17) mg/dL Creatinine (0.52-1.04) mg/dL POC Glucose (mg/dL) 118 H (70-110) mg/dL Calcium (8.4-10.2) mg/dL Microbiology - Last 24 Hours (Table) 11/22/23 13:57 Blood Culture - Preliminary Blood Assessment and Plan (1) Bilateral lower leg cellulitis Current Visit: Yes Status: Acute Code(s): L03.116 - CELLULITIS OF LEFT LOWER LIMB; L03.115 - CELLULITIS OF RIGHT LOWER LIMB SNOMED Code(s): 930675301 (2) Skin ulcers of foot, bilateral Current Visit: Yes Status: Acute Code(s): L97.519 - NON-PRS CHRONIC ULCER OTH PRT RIGHT FOOT W UNSP SEVERITY; L97.529 - NON-PRESSURE CHRONIC ULCER OTH PRT LEFT FOOT W UNSP SEVERITY SNOMED Code(s): 14084553 Plan: 1patient presented hospital with increasing swelling to bilateral lower extre mity with blister formation. Superficial ulceration from ruptured blister and concerning for cellulitis likely from gram-positive skin grisel in this patient who did have evidence of fluid overload x-ray findings are mostly related to fluid overload CHF rather than pneumonia 2-patient to continue local wound care with apply Aquacel dressing to the open blister area followed by Waylon wrap from just above the toe to below the knee change every 48 hour 3-patient to continue with cefazolin hopefully transition to oral antibiotics on discharge Daughter at the bedside questions answered Dictation was produced using [employer] dictation software. please excuse any grammatical, word or spelling errors. Time with Patient: Less than 30
--- NOTE | 2023-11-25 15:45 | P.PN ---
Subjective Progress Note Date: 11/25/23 Progress note 11/25/2023 Blood pressure 89/52, heart rate 93 bpm, labs shows BUN 34, creatinine 1.2, creatinine appears to be at baseline Negative fluid balance of approximately 500 mL today and yesterday 11/24/2023 Patient denies having any active chest pain chest pressure. She still appears mildly volume overloaded. Will continue IV diuretics for next 1 to 2 days BP 98/58, heart rate 85 Lab shows creatinine 1.12. Yesterday it was 1.08, BUN 35 yesterday at 36, hemoglobin 9.2, BNP 39,000 History of Present Illness: The patient is an 88-year-old female, followed by Dr. De La Torre who recently underwen t PCI of her RCA and subsequently the LAD with Impella support. Postprocedure she had persistent bleeding from the right femoral artery requiring covered stent. She has a history of severe cardiomyopathy with aortic stenosis of unclear severity. The patient presents with progressive peripheral edema and blisters and evidence of cellulitis. She feels that her breathing overall is better. She denies any chest discomfort, dizziness or palpitations. She denies any PND or orthopnea. She was evaluated by infectious disease and started on antibiotics. She has a history of hypertension, hyperlipidemia and diabetes mellitus. She is a non-smoker. On presentation her EKG is suggestive of atrial fibrillation although the baseline is poor. Her last EKG prior to her discharge last time is suggestive of atrial fibrillation as well. On presentation her BUN was 38, she had a troponin 0.069 and elevated NT proBNP. Medications: Zestril 5 mg daily, Actos 15 mg daily, Prevacid, Lasix 40 mg daily, aspirin once a day, Lipitor 40 mg daily, Plavix 75 mg daily Review of Systems: Respiratory: She has dyspnea on exertion but no recent wheezing or cough GI: No nausea or vomiting . No history of peptic ulcer disease. No recent GI bleed. : No hematuria or dysuria. Nervous System: No stroke or seizure. Physical Examination: 88-year-old female, overweight, alert oriented no apparent distress,Blood pressure 105/70, Heart rate 50 Head: Normocephalic. Eyes: Sclerae nonicteric. Neck: Good carotid upstroke, no bruit, no jugular venous distention. Lungs: Clear to auscultation. Heart: Irregular rate and rhythm, S1-S2 with a systolic murmur, 2/6 at the base Abdomen: Soft nontender, positive bowel sounds no organomegaly. Obese Extremities: +1-2 edema, intact distal pulses. Erythema with blisters noted Labs: BUN 38, creatinine 1, potassium 5.5, NT proBNP 31,700, hemoglobin 9.2. Chest x-ray with pleural effusion EKG: EKG suggestive of atrial fibrillation with occasional PVCs Impression: 1. Acute HFrEF exacerbation EF 2025% 2. Status post two-vessel stenting. S/p covered stent placement and right common femoral 3. Aortic stenosis of unclear severity, patient may have low-flow low gradient AAS 4. History of hypertension 5. History of diabetes 6. Cellulitis 7. Obesity 8. Atrial fibrillation, probable paroxysmal Repeat echocardiogram showed an EF of 20% with mild to moderate aortic stenosis. This is a limited echo which was poor quality. Plan: Still appears volume overloaded with only 500 cc urine output on IV Lasix twice daily. Add metolazone 2.5 mg oral to be given 30 minutes before Lasix Lasix 40 mg twice daily continue IV diuretics for next 1 to 2 days. Monitor renal function and urine output and electrolytes Continue Eliquis 5 mg twice daily, Plavix 75 mg daily, atorvastatin 40 mg daily Entresto 24 to 26 mg twice daily, Farxiga 10 mg daily Antibiotics as per infectious disease Outpatient detailed echo for low-flow low gradient aortic stenosis evaluation Objective - Vital Signs Vital signs: Vital Signs Temp 97.6 F 11/25/23 15:00 Pulse 93 11/25/23 15:00 Resp 16 11/25/23 15:00 BP 89/52 11/25/23 15:00 Pulse Ox 96 11/25/23 15:00 FiO2 Intake & Output 11/24/23 11/25/23 11/25/23 18:59 06:59 18:59 Intake Total 500 Output Total 350 875 200 Balance 150 -875 -200 Weight 71.4 kg Intake: Oral 500 Output: Urine 350 875 200 Other: Voiding Method Bedside Commode Bedside Commode Bedside Commode # Voids 1 # Bowel Movements 1 - Labs CBC & Chem 7: 11/22/23 13:57 11/25/23 06:52 Labs: Abnormal Lab Results - Last 24 Hours (Table) 11/24/23 11/24/23 11/25/23 Range/Units 17:29 20:13 06:52 Carbon Dioxide 33 H (22-30) mmol/L BUN 34 H (7-17) mg/dL Creatinine 1.20 H (0.52-1.04) mg/dL POC Glucose (mg/dL) 133 H 193 H (70-110) mg/dL Calcium 8.1 L (8.4-10.2) mg/dL 11/25/23 Range/Units 11:36 Carbon Dioxide (22-30) mmol/L BUN (7-17) mg/dL Creatinine (0.52-1.04) mg/dL POC Glucose (mg/dL) 118 H (70-110) mg/dL Calcium (8.4-10.2) mg/dL Microbiology - Last 24 Hours (Table) 11/22/23 13:57 Blood Culture - Preliminary Blood
--- NOTE | 2023-11-25 16:09 | P.PN ---
Progress Note - Text Progress Note Date: 11/25/23 Chief Complaint: Edema This is a pleasant 88-year-old patient, follows with Dr. Abelardo Lofton. Chronic stable medical conditions include diabetes, GERD, hypertension, hyperlipidemia, heart valve problems, CAD with stent. Follows with test desk operator Dr. De La Torre. On October 31, 2023: Patient had a cardiac catheterization by Dr. De La Torre. Had a successful stent to the mid LAD, proximal LAD,.. Also found to have severely calcified right and left coronary system. She also went for PCI of the RCA. Patient now presents with increasing swelling of the lower extremity. With blisters on the feet. Uses 2 pillows at night. Some shortness of breath. Able to get around the house. Does use a walker outside the house. No cough no fever no chills. Appetite is okay. Patient is accompanied by her daughter who lives across the street. November 23: Sitting up in bed. Daughter at the bedside. Breathing better. Decrease in lower extremity edema. Remains on IV Lasix. Being followed by cardiology. Discussed with patient. Increase activity. November 24: Feeling better. Tolerating diet. Edema going down. On IV Lasix. Spoke to daughter at bedside. Patient to sit up in a chair. November 25: Breathing better. Edema is going down. Seen by cardiology. Continue IV Lasix for another 24 hours. Have the patient ambulate with a walker from home. Family at the bedside will see how she does. Eating well. Active Medications Acetaminophen (Acetaminophen Tab 325 Mg Tab) 650 mg PO Q6HR PRN PRN Reason: Mild Pain or Fever > 100.5 Last Admin: 11/25/23 12:54 Dose: 650 mg Alprazolam (Alprazolam 0.25 Mg Tab) 0.25 mg PO Q6HR PRN PRN Reason: Anxiety Apixaban (Apixaban 5 Mg Tab) 5 mg PO BID COUNTS INCLUDE 234 BEDS AT THE [facility]; Protocol Last Admin: 11/25/23 08:50 Dose: 5 mg Atorvastatin Calcium (Atorvastatin 40 Mg Tab) 40 mg PO DAILY COUNTS INCLUDE 234 BEDS AT THE [facility] Last Admin: 11/25/23 08:50 Dose: 40 mg Calcium Carbonate/Glycine (Calcium Carbonate 500 Mg Chewable) 1,000 mg PO Q4HR PRN PRN Reason: Dyspepsia Clopidogrel Bisulfate (Clopidogrel 75 Mg Tab) 75 mg PO DAILY COUNTS INCLUDE 234 BEDS AT THE [facility] Last Admin: 11/25/23 08:50 Dose: 75 mg Dapagliflozin (Dapagliflozin Propanediol 10 Mg Tablet) 10 mg PO DAILY COUNTS INCLUDE 234 BEDS AT THE [facility] Last Admin: 11/25/23 08:50 Dose: 10 mg Dextrose/Water (Dextrose 50% Syringe 50 Ml) 25 ml IVP PER PROTOCOL PRN; Protocol PRN Reason: Hypoglycemia Dextrose/Water (Dextrose 50% Syringe 50 Ml) 50 ml IVP PER PROTOCOL PRN; Protocol PRN Reason: Hypoglycemia Furosemide (Furosemide 10 Mg/Ml 4 Ml Vial) 40 mg IV BID COUNTS INCLUDE 234 BEDS AT THE [facility] Last Admin: 11/25/23 08:49 Dose: 40 mg Gabapentin (Gabapentin 400 Mg Cap) 1,200 mg PO HS COUNTS INCLUDE 234 BEDS AT THE [facility] Last Admin: 11/24/23 20:19 Dose: 1,200 mg Gabapentin (Gabapentin 300 Mg Cap) 600 mg PO BID@0900,1600 COUNTS INCLUDE 234 BEDS AT THE [facility] Last Admin: 11/25/23 15:53 Dose: 600 mg Cefazolin Sodium 1,000 mg/ (Sodium Chloride) 50 mls @ 100 mls/hr IVPB Q12HR COUNTS INCLUDE 234 BEDS AT THE [facility]; Protocol Last Admin: 11/25/23 08:49 Dose: 100 mls/hr Insulin Aspart (Insulin Aspart (Novolog) 100 Unit/Ml Vial) 0 unit SQ AC-TID COUNTS INCLUDE 234 BEDS AT THE [facility]; Protocol Last Admin: 11/25/23 11:47 Dose: Not Given Lactulose (Lactulose 20 Gm/30 Ml Cup) 20 gm PO DAILY PRN PRN Reason: Constipation Melatonin (Melatonin 3 Mg Tablet) 3 mg PO HS PRN PRN Reason: Insomnia Metolazone (Metolazone 2.5 Mg Tab) 2.5 mg PO DAILY COUNTS INCLUDE 234 BEDS AT THE [facility] Morphine Sulfate (Morphine Sulfate 4 Mg/Ml Syringe) 4 mg IV Q4HR PRN PRN Reason: Severe Pain (Scale 7 to 10) Naloxone HCl (Naloxone 0.4 Mg/Ml 1 Ml Vial) 0.2 mg IV Q2M PRN PRN Reason: Opioid Reversal Ondansetron HCl (Ondansetron 4 Mg/2 Ml Vial) 4 mg IVP Q8HR PRN PRN Reason: Nausea And Vomiting Pantoprazole Sodium (Pantoprazole 40 Mg Tablet) 40 mg PO AC-BRKFST COUNTS INCLUDE 234 BEDS AT THE [facility] Last Admin: 11/25/23 06:15 Dose: 40 mg Pioglitazone HCl (Pioglitazone 15 Mg Tab) 15 mg PO DAILY COUNTS INCLUDE 234 BEDS AT THE [facility] Last Admin: 11/25/23 08:49 Dose: 15 mg Sacubitril/Valsartan (Sacubitril/Valsartan 24 Mg-26 Mg Tablet) 1 each PO BID CAVLIN Last Admin: 11/25/23 08:49 Dose: 1 each Social history: Does live alone. Quit smoking 40 years ago. No alcohol. Daughter lives across the street Physical examination: VITAL SIGNS: 97.6, 93, 16, 89/52, 96% room air GENERAL: Reclining in bed, comfortable EYES: Pupils equal. Conjunctiva tiana l. HEENT: External appearance of nose and ears normal, oral cavity grossly normal. NECK: JVD possibly raised; masses not palpable. HEART: First and second heart sounds are normal; edema decreased. LUNGS: Respiratory rate normal l; lungs clear ABDOMEN: Soft, nontender, liver spleen not palpable, no masses palpable. PSYCH: Alert and oriented x3; mood and affect tiana l. MUSCULOSKELETAL:No Clubbing/cyanosis;muscles-grossly intact. OA INVESTIGATIONS, reviewed in the clinical context: November 25: Potassium 3.8 creatinine 1.2 November 24: Potassium 3.8 BUN 35 creatinine 1.12 2D echocardiogram: EF 20-25% severe global hypokinesis. Moderate mitral regurgitation, moderate mitral annular calcification. Tricuspid regurgitation. November 23: Potassium 4.2 BUN 36 creatinine 1.08 November 22: White count 5.3 hemoglobin 9.2 platelets 223 potassium 5.5 BUN 38 creatinine 1.0 Troponin I 0.069. proBNP 33761 EKG tracing personally reviewed by me-multiple PVCs. Questionable heart block Chest x-ray film personally reviewed by me: Cardiomegaly. Vascular congestion Assessment and plan: -Acute congestive heart failure exacerbation. From systolic dysfunction EF 20- 25% ischemic cardiomyopathy: Improving IV Lasix 40 mg twice daily. Strict I's and O. Fluid restriction 2000 cc a day -Moderate mitral, tricuspid regurgitation -Atrial fibrillation -Coronary artery disease, with recent stent to the mid LAD, proximal LAD. Also underlying severely calcified right and left coronary system. Also PCI of the RCA: October 31, [address] De La Torre Aspirin. Plavix Lipitor. 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 Accu-Cheks with sliding scale insulin -Mild cellulitis on the feet secondary to breakdown of blisters from CHF IV Ancef -Primary osteoarthritis Tylenol as needed -Microcytic anemia Check iron studies -Hyperkalemia: Corrected IV Lasix. Stopping lisinopril. -Full code Continue current treatment. Increase activity with walker. Hopefully plan for discharge tomorrow. Past Medical History Past Medical History: Heart Failure, Diabetes Mellitus, GERD/Reflux, Hyperlipidemia, Hypertension, Skin Disorder Additional Past Medical History / Comment(s): recent adm to [facility] for SOB, adjusted meds, is better, but still SOB w/exertion, possible heart valve problem, sore right leg after caught it on car door pretty much gone History of Any Multi-Drug Resistant Organisms: None Reported Past Surgical History: Section, Heart Catheterization, Heart Catheterization With Stent, Hysterectomy, Joint Replacement, Orthopedic Surgery Additional Past Surgical History / Comment(s): 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
[2023-11-25 17:51] LABS: Glucose,Whole Blood 131 mg/dL (70-110)
[2023-11-25] MEDS: metOLazone 2.5 MG TAB PO SCH (18:02)
[2023-11-25 21:19] LABS: Glucose,Whole Blood 148 mg/dL (70-110)
[2023-11-26 06:23] LABS: Glucose,Whole Blood 103 mg/dL (70-110)
[2023-11-26 09:09] LABS: African American GFR (CKD) 45 (>60 ml/min/1.73 sqM); Anion Gap 5 mmol/L; Blood Urea Nitrogen 37 mg/dL (7-17); Calcium 8.4 mg/dL (8.4-10.2); Carbon Dioxide 31 mmol/L (22-30); Chloride 99 mmol/L (98-107); Glucose 94 mg/dL (74-99); Non-African American GFR(CKD) 39 (>60 ml/min/1.73 sqM); Potassium 3.8 mmol/L (3.5-5.1); Sodium 135 mmol/L (137-145)
--- NOTE | 2023-11-26 11:43 | P.PN ---
Subjective HISTORY OF PRESENT ILLNESS: The patient is an 88-year-old female, followed by Dr. De La Torre who recently underwent PCI of her RCA and subsequently the LAD with Impella support. Postprocedure she had persistent bleeding from the right femoral artery requiring covered stent. She has a history of severe cardiomyopathy with aortic stenosis of unclear severity. The patient presents with progressive peripheral edema and blisters and evidence of cellulitis. She feels that her breathing overall is better. She denies any chest discomfort, dizziness or palpitations. She denies any PND or orthopnea. She was evaluated by infectious disease and started on antibiotics. She has a history of hypertension, hyperlipidemia and diabetes mellitus. She is a non-smoker. On presentation her EKG is suggestive of atrial fibrillation although the baseline is poor. Her last EKG prior to her discharge last time is suggestive of atrial fibrillation as well. On presentation her BUN was 38, she had a troponin 0.069 and elevated NT proBNP. Medications: Zestril 5 mg daily, Actos 15 mg daily, Prevacid, Lasix 40 mg daily, aspirin once a day, Lipitor 40 mg daily, Plavix 75 mg daily 11/24/2023 Patient denies having any active chest pain chest pressure. She still appears mildly volume overloaded. Will continue IV diuretics for next 1 to 2 days BP 98/58, heart rate 85 Lab shows creatinine 1.12. Yesterday it was 1.08, BUN 35 yesterday at 36, hemoglobin 9.2, BNP 39,000 11/25/2023 Blood pressure 89/52, heart rate 93 bpm, labs shows BUN 34, creatinine 1.2, creatinine appears to be at baseline Negative fluid balance of approximately 500 mL today and yesterday 11/26/2023 Patient examined this morning. Patient is sitting on the side of the bed. Patient denies having any chest pain or pressure. She denies any shortness of breath. Manual blood pressures obtained this morning by nursing with a systolic in the 80s. The patient denies having any dizziness or lightheadedness. Telemetry this morning reveals atrial fibrillation with controlled ventricular rate PHYSICAL EXAM: VITAL SIGNS: Reviewed. GENERAL: Well-developed in no acute distress. NECK: Supple. No JVD or thyromegaly LUNGS: Respirations even and unlabored. Lungs essentially clear to auscultation bilaterally. HEART: Irregular rate and rhythm. S1 and S2 heard. Systolic murmur noted. EXTREMITIES: Normal range of motion. No clubbing or cyanosis. Peripheral pulses intact. Trace bilateral lower extremity edema ASSESSMENT: Shortness of breath Acute on chronic heart failure with reduced EF, 20 to 25% Coronary artery disease with recent PCI of the RCA and subsequent LAD with Impella support Paroxysmal atrial fibrillation Aortic stenosis of unclear severity, patient may have low-flow low gradient AAS Hypertension Diabetes Obesity PLAN: Continue current cardiac medications Discontinue IV Lasix after this morning's dose Begin oral Lasix 40 mg twice a day Discontinue Zaroxolyn Increase activity as tolerated Anticipate discharge this afternoon versus tomorrow Patient to follow-up postdischarge in the office with Dr. De La Torre Nurse practitioner note has been reviewed by physician. Signing provider agrees with the documented findings, assessment, and plan of care documented by ORTHODONTIC ASSISTANT as a scribe. Objective - Vital Signs Vital signs: Vital Signs Temp 97.4 F L 11/26/23 08:04 Pulse 76 11/26/23 08:04 Resp 16 11/26/23 08:04 BP 80/40 11/26/23 08:00 Pulse Ox 95 11/26/23 08:04 FiO2 Intake & Output 11/25/23 11/26/23 11/26/23 18:59 06:59 18:59 Output Total 200 1150 Balance -200 -1150 Weight 71 kg Output: Urine 200 1150 Other: Voiding Method Bedside Commode Bedside Commode # Voids 1 # Bowel Movements 0 - Labs CBC & Chem 7: 11/22/23 13:57 11/26/23 07:56 Labs: Abnormal Lab Results - Last 24 Hours (Table) 11/25/23 11/25/23 11/25/23 Range/Units 11:36 17:49 21:18 Sodium (137-145) mmol/L Carbon Dioxide (22-30) mmol/L BUN (7-17) mg/dL Creatinine (0.52-1.04) mg/dL POC Glucose (mg/dL) 118 H 131 H 148 H (70-110) mg/dL 11/26/23 Range/Units 07:56 Sodium 135 L (137-145) mmol/L Carbon Dioxide 31 H (22-30) mmol/L BUN 37 H (7-17) mg/dL Creatinine 1.24 H (0.52-1.04) mg/dL POC Glucose (mg/dL) (70-110) mg/dL Microbiology - Last 24 Hours (Table) 11/22/23 13:57 Blood Culture - Preliminary Blood
--- NOTE | 2023-11-26 12:09 | P.PN ---
Subjective Progress Note Date: 11/26/23 Principal diagnosis: Reason for follow-up is bilateral lower extremity ulcer and cellulitis Patient is a 88-year-old female with a past medical history significant for diabetes mellitus reflux hypertension hyperlipidemia heart failure presenting to the hospital for evaluation of generalized weakness and also complaining of increasing swelling to bilateral lower extremity along with blisters and superficial ulceration and concerning for cellulitis. On today's evaluation that is 11/26/2023, the patient continues to be afebrile, the patient is on room air and breathing comfortably, the Pt denies having any chest pain or cough, the patient denies having any abdominal pain no vomiting or any diarrhea has been reported by the nursing staff, overall swelling and disc omfort to the leg has decreased in intensity. Patient did have a creatinine 1.24 blood cultures were negative Objective - Vital Signs Vital signs: Vital Signs Temp 97.4 F L 11/26/23 08:04 Pulse 76 11/26/23 08:04 Resp 16 11/26/23 08:04 BP 80/40 11/26/23 08:00 Pulse Ox 95 11/26/23 08:04 FiO2 Intake & Output 11/25/23 11/26/23 11/26/23 18:59 06:59 18:59 Output Total 200 1150 Balance -200 -1150 Weight 71 kg Output: Urine 200 1150 Other: Voiding Method Bedside Commode Bedside Commode # Voids 1 # Bowel Movements 0 - Exam GENERAL DESCRIPTION: An elderly female lying in bed in no distress RESPIRATORY SYSTEM: Unlabored breathing , decreased breath sounds at bases HEART: S1 S2 regular rate and rhythm , ABDOMEN: Soft , no tenderness EXTREMITIES: Diffuse swelling to bilateral extremity did have superficial ulceration bilateral feet with minimal redness - Labs CBC & Chem 7: 11/22/23 13:57 11/26/23 07:56 Labs: Abnormal Lab Results - Last 24 Hours (Table) 11/25/23 11/25/23 11/25/23 Range/Units 11:36 17:49 21:18 Sodium (137-145) mmol/L Carbon Dioxide (22-30) mmol/L BUN (7-17) mg/dL Creatinine (0.52-1.04) mg/dL POC Glucose (mg/dL) 118 H 131 H 148 H (70-110) mg/dL 11/26/23 Range/Units 07:56 Sodium 135 L (137-145) mmol/L Carbon Dioxide 31 H (22-30) mmol/L BUN 37 H (7-17) mg/dL Creatinine 1.24 H (0.52-1.04) mg/dL POC Glucose (mg/dL) (70-110) mg/dL Microbiology - Last 24 Hours (Table) 11/22/23 13:57 Blood Culture - Preliminary Blood Assessment and Plan (1) Bilateral lower leg cellulitis Current Visit: Yes Status: Acute Code(s): L03.116 - CELLULITIS OF LEFT LOWER LIMB; L03.115 - CELLULITIS OF RIGHT LOWER LIMB SNOMED Code(s): 548404789 (2) Skin ulcers of foot, bilateral Current Visit: Yes Status: Acute Code(s): L97.519 - NON-PRS CHRONIC ULCER OTH PRT RIGHT FOOT W UNSP SEVERITY; L97.529 - NON-PRESSURE CHRONIC ULCER OTH PRT LEFT FOOT W UNSP SEVERITY SNOMED Code(s): 65015060 Plan: 1patient presented hospital with increasing swelling to bilateral lower extremity with blister formation. Superficial ulceration from ruptured blister and concerning for cellulitis likely from gram-positive skin grisel in this patient who did have evidence of fluid overload x-ray findings are mostly related to fluid overload CHF rather than pneumonia 2-patient to continue local wound care with apply Aquacel dressing to the open blister area followed by Waylon wrap from just above the toe to below the knee change every 48 hour 3-patient to continue with cefazolin with a plan for short course of oral Keflex on discharge Dictation was produced using [employer] dictation software. please excuse any grammatical, word or spelling errors. Time with Patient: Less than 30
[2023-11-26 12:32] LABS: Glucose,Whole Blood 152 mg/dL (70-110)
[2023-11-26] MEDS: ACETAMINOPHEN IV (For NPO) 1,000 MG in EMPTY BAG 1 BAG IVPB ONE (13:54)
--- NOTE | 2023-11-26 15:51 | XR ---
EXAMINATION TYPE: XR chest 2V DATE OF EXAM: 11/26/2023 COMPARISON: 11/22/2023 HISTORY: 88-year-old female follow-up CHF TECHNIQUE: Frontal and lateral views FINDINGS: Heart borderline enlarged. Ongoing large meniscus along the left costophrenic angle extending up to t he mid chest level. Smaller meniscus at the right lateral costophrenic angle. Visualized upper lungs are clear. IMPRESSION: Borderline cardiomegaly with continued small to moderate left and trace right pleural effusions with adjacent atelectasis and/or consolidation.
[2023-11-26] MEDS: FUROSEMIDE 40 MG TAB PO SCH (15:57)
[2023-11-26 17:37] LABS: Glucose,Whole Blood 209 mg/dL (70-110)
--- NOTE | 2023-11-26 18:34 | P.PN ---
Progress Note - Text Progress Note Date: 11/26/23 Chief Complaint: Edema This is a pleasant 88-year-old patient, follows with Dr. Abelardo Lofton. Chronic stable medical conditions include diabetes, GERD, hypertension, hyperlipidemia, heart valve problems, CAD with stent. Follows with aquatics group fitness instructor Dr. De La Torre. On October 31, 2023: Patient had a cardiac catheterization by Dr. De La Torre. Had a successful stent to the mid LAD, proximal LAD,.. Also found to have severely calcified right and left coronary system. She also went for PCI of the RCA. Patient now presents with increasing swelling of the lower extremity. With blisters on the feet. Uses 2 pillows at night. Some shortness of breath. Able to get around the house. Does use a walker outside the house. No cough no fever no chills. Appetite is okay. Patient is accompanied by her daughter who lives across the street. November 23: Sitting up in bed. Daughter at the bedside. Breathing better. Decrease in lower extremity edema. Remains on IV Lasix. Being followed by cardiology. Discussed with patient. Increase activity. November 24: Feeling better. Tolerating diet. Edema going down. On IV Lasix. Spoke to daughter at bedside. Patient to sit up in a chair. November 25: Breathing better. Edema is going down. Seen by cardiology. Continue IV Lasix for another 24 hours. Have the patient ambulate with a walker from home. Family at the bedside will see how she does. Eating well. November 26: Dr. De La Torre called this morning he feels the patient needs to be in the hospital for another day or 2. I did speak to the patient and daughter at the bedside. Patient again sat up in a chair. And ambulate as tolerated. Did work with physical therapy. Diamox for metabolic alkalosis was added. Chest x- ray showing some left possible pleural effusion. Patient blood pressure running low. Later this afternoon per cardiology was switched over to oral Lasix. Active Medications Acetaminophen (Acetaminophen Tab 325 Mg Tab) 650 mg PO Q6HR PRN PRN Reason: Mild Pain or Fever > 100.5 Last Admin: 11/25/23 12:54 Dose: 650 mg Alprazolam (Alprazolam 0.25 Mg Tab) 0.25 mg PO Q6HR PRN PRN Reason: Anxiety Apixaban (Apixaban 5 Mg Tab) 5 mg PO BID [facility]; Protocol Last Admin: 11/26/23 09:53 Dose: 5 mg Atorvastatin Calcium (Atorvastatin 40 Mg Tab) 40 mg PO DAILY [facility] Last Admin: 11/26/23 09:53 Dose: 40 mg Calcium Carbonate/Glycine (Calcium Carbonate 500 Mg Chewable) 1,000 mg PO Q4HR PRN PRN Reason: Dyspepsia Clopidogrel Bisulfate (Clopidogrel 75 Mg Tab) 75 mg PO DAILY [facility] Last Admin: 11/26/23 09:53 Dose: 75 mg Dapagliflozin (Dapagliflozin Propanediol 10 Mg Tablet) 10 mg PO DAILY [facility] Last Admin: 11/26/23 09:53 Dose: 10 mg Dextrose/Water (Dextrose 50% Syringe 50 Ml) 25 ml IVP PER PROTOCOL PRN; Protocol PRN Reason: Hypoglycemia Dextrose/Water (Dextrose 50% Syringe 50 Ml) 50 ml IVP PER PROTOCOL PRN; Protocol PRN Reason: Hypoglycemia Furosemide (Furosemide 40 Mg Tab) 40 mg PO BID@0900,1600 [facility] Last Admin: 11/26/23 15:57 Dose: 40 mg Gabapentin (Gabapentin 400 Mg Cap) 1,200 mg PO HS [facility] Last Admin: 11/25/23 21:19 Dose: 1,200 mg Gabapentin (Gabapentin 300 Mg Cap) 600 mg PO BID@0900,1600 [facility] Last Admin: 11/26/23 15:57 Dose: 600 mg Cefazolin Sodium/Dextrose 1 gm (/ IV Solution) 50 mls @ 100 mls/hr IVPB Q12HR [facility] Insulin Aspart (Insulin Aspart (Novolog) 100 Unit/Ml Vial) 0 unit SQ AC-TID [facility]; Protocol Last Admin: 11/26/23 18:02 Dose: 2 unit Lactulose (Lactulose 20 Gm/30 Ml Cup) 20 gm PO DAILY PRN PRN Reason: Constipation Melatonin (Melatonin 3 Mg Tablet) 3 mg PO HS PRN PRN Reason: Insomnia Naloxone HCl (Naloxone 0.4 Mg/Ml 1 Ml Vial) 0.2 mg IV Q2M PRN PRN Reason: Opioid Reversal Ondansetron HCl (Ondansetron 4 Mg/2 Ml Vial) 4 mg IVP Q8HR PRN PRN Reason: Nausea And Vomiting Pantoprazole Sodium (Pantoprazole 40 Mg Tablet) 40 mg PO AC-BRKFST [facility] Last Admin: 11/26/23 06:52 Dose: 40 mg Pioglitazone HCl (Pioglitazone 15 Mg Tab) 15 mg PO DAILY [facility] Last Admin: 11/26/23 10:25 Dose: 15 mg Sacubitril/Valsartan (Sacubitril/Valsartan 24 Mg-26 Mg Tablet) 1 each PO BID [facility] Last Admin: 11/26/23 10:25 Dose: 1 each Social history: Does live alone. Quit smoking 40 years ago. No alcohol. Daughter lives across the street Physical examination: VITAL SIGNS: 97.7, 85, 18, 80/50 98% room air GENERAL: Reclining in bed, comfortable EYES: Pupils equal. Conjunctiva tiana l. HEENT: External appearance of nose and ears normal, oral cavity grossly normal. NECK: JVD possibly raised; masses not palpable. HEART: First and second heart sounds are normal; edema decreased. LUNGS: Respiratory rate normal l; l some left basilar crackles ABDOMEN: Soft, nontender, liver spleen not palpable, no masses palpable. PSYCH: Alert and oriented x3; mood and affect tiana l. MUSCULOSKELETAL:No Clubbing/cyanosis;muscles-grossly intact. OA INVESTIGATIONS, reviewed in the clinical context: November 26: Potassium 3.8 bicarb 31. 37 creatinine 1.24 November 25: Potassium 3.8 creatinine 1.2 November 24: Potassium 3.8 BUN 35 creatinine 1.12 2D echocardiogram: EF 20-25% severe global hypokinesis. Moderate mitral regurgitation, moderate mitral annular calcification. Tricuspid regurgitation. November 23: Potassium 4.2 BUN 36 creatinine 1.08 November 22: White count 5.3 hemoglobin 9.2 platelets 223 potassium 5.5 BUN 38 creatinine 1.0 Troponin I 0.069. proBNP 13304 EKG tracing personally reviewed by me-multiple PVCs. Questionable heart block Chest x-ray film personally reviewed by me: Cardiomegaly. Vascular congestion Assessment and plan: -Acute congestive heart failure exacerbation. From systolic dysfunction EF 20- 25% ischemic cardiomyopathy: Improving IV Lasix 40 mg twice daily. Strict I's and O. Fluid restriction 2000 cc a day Changed over to Lasix 40 mg p.o. twice daily per cardiology -Moderate mitral, tricuspid regurgitation -Atrial fibrillation -Coronary artery disease, with recent stent to the mid LAD, proximal LAD. Also underlying severely calcified right and left coronary system. Also PCI of the RCA: October 31, [address] De La Torre Aspirin. Plavix Lipitor. 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 Accu-Cheks with sliding scale insulin -Mild cellulitis on the feet secondary to breakdown of blisters from CHF IV Ancef -Primary osteoarthritis Tylenol as needed -Microcytic anemia Check iron studies -Hyperkalemia: Corrected IV Lasix. Stopping lisinopril. -Full code Discussed with nurse patient and family. Dr. De La Torre who knows the patient like the patient to be of another day or 2. Also cardiology the patient to p.o. Lasix. Past Medical History Past Medical History: Heart Failure, Diabetes Mellitus, GERD/Reflux, Hyperlipidemia, Hypertension, Skin Disorder Additional Past Medical History / Comment(s): recent adm 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
[2023-11-26 20:17] LABS: Glucose,Whole Blood 105 mg/dL (70-110)
[2023-11-26] MEDS: ceFAZolin 1 GM in DEXTROSE/WATER 1 50ML.BAG IVPB SCH (20:29)
[2023-11-27 05:49] LABS: Glucose,Whole Blood 100 mg/dL (70-110)
--- NOTE | 2023-11-27 10:45 | P.PN ---
Subjective HISTORY OF PRESENT ILLNESS: The patient is an 88-year-old female, followed by Dr. De La Torre who recently underwent PCI of her RCA and subsequently the LAD with Impella support. Postprocedure she had persistent bleeding from the right femoral artery requiring covered stent. She has a history of severe cardiomyopathy with aortic stenosis of unclear severity. The patient presents with progressive peripheral edema and blisters and evidence of cellulitis. She feels that her breathing overall is better. She denies any chest discomfort, dizziness or palpitations. She denies any PND or orthopnea. She was evaluated by infectious disease and started on antibiotics. She has a history of hypertension, hyperlipidemia and diabetes mellitus. She is a non-smoker. On presentation her EKG is suggestive of atrial fibrillation although the baseline is poor. Her last EKG prior to her discharge last time is suggestive of atrial fibrillation as well. On presentation her BUN was 38, she had a troponin 0.069 and elevated NT proBNP. Medications: Zestril 5 mg daily, Actos 15 mg daily, Prevacid, Lasix 40 mg daily, aspirin once a day, Lipitor 40 mg daily, Plavix 75 mg daily 11/24/2023 Patient denies having any active chest pain chest pressure. She still appears mildly volume overloaded. Will continue IV diuretics for next 1 to 2 days BP 98/58, heart rate 85 Lab shows creatinine 1.12. Yesterday it was 1.08, BUN 35 yesterday at 36, hemoglobin 9.2, BNP 39,000 11/25/2023 Blood pressure 89/52, heart rate 93 bpm, labs shows BUN 34, creatinine 1.2, creatinine appears to be at baseline Negative fluid balance of approximately 500 mL today and yesterday 11/26/2023 Patient examined this morning. Patient is sitting on the side of the bed. Patient denies having any chest pain or pressure. She denies any shortness of breath. Manual blood pressures obtained this morning by nursing with a systolic in the 80s. The patient denies having any dizziness or lightheadedness. Telemetry this morning reveals atrial fibrillation with controlled ventricular rate 11/27/2023 Patient examined this morning at the bedside. Patient currently denies chest pain or pressure. She denies shortness of breath. She remains on oral diuretics. Blood pressure stable with a systolic in the 90s. PHYSICAL EXAM: VITAL SIGNS: Reviewed. GENERAL: Well-developed in no acute distress. NECK: Supple. No JVD or thyromegaly LUNGS: Respirations even and unlabored. Lungs essentially clear to auscultation bilaterally. HEART: Irregular rate and rhythm. S1 and S2 heard. Systolic murmur noted. EXTREMITIES: Normal range of motion. No clubbing or cyanosis. Peripheral pulses intact. Trace bilateral lower extremity edema ASSESSMENT: Shortness of breath Acute on chronic heart failure with reduced EF, 20 to 25% Coronary artery disease with recent PCI of the RCA and subsequent LAD with Impella support Paroxysmal atrial fibrillation Aortic stenosis of unclear severity, patient may have low-flow low gradient AAS Hypertension Diabetes Obesity PLAN: Continue current cardiac medications Continue oral diuretics Patient is stable for discharge home today from a cardiac standpoint Patient to follow-up postdischarge in the office with Dr. De La Torre Nurse practitioner note has been reviewed by physician. Signing provider agrees with the documented findings, assessment, and plan of care documented by COMPOSITE LAMINATOR as a scribe. Objective - Vital Signs Vital signs: Vital Signs Temp 97.8 F 11/27/23 07:24 Pulse 55 L 11/27/23 07:24 Resp 18 11/27/23 07:24 BP 96/56 11/27/23 07:24 Pulse Ox 95 11/27/23 02:00 FiO2 Intake & Output 11/26/23 11/27/23 11/27/23 18:59 06:59 18:59 Intake Total 519 Output Total 450 450 Balance 69 -450 Weight 70.9 kg Intake: Oral 519 Output: Urine 450 450 Other: Voiding Method Bedside Commode Bedside Commode # Voids 1 # Bowel Movements 1 - Labs CBC & Chem 7: 11/22/23 13:57 11/26/23 07:56 Labs: Abnormal Lab Results - Last 24 Hours (Table) 11/26/23 11/26/23 Range/Units 12:26 17:30 POC Glucose (mg/dL) 152 H 209 H (70-110) mg/dL
[2023-11-27 12:22] LABS: Glucose,Whole Blood 136 mg/dL (70-110)
--- NOTE | 2023-11-27 13:02 | P.PN ---
Subjective Progress Note Date: 11/27/23 Principal diagnosis: Reason for follow-up is bilateral lower extremity ulcer and cellulitis Patient is a 88-year-old female with a past medical history significant for diabetes mellitus reflux hypertension hyperlipidemia heart failure presenting to the hospital for evaluation of generalized weakness and also complaining of increasing swelling to bilateral lower extremity along with blisters and superficial ulceration and concerning for cellulitis. On today's evaluation that is 11/27/2023, Patient is afebrile , patient is currently on room air and denies having any shortness of breath, the patient denies any chest pain or cough, the patient denies any nausea vomiting did not have any abdominal pain and no diarrhea, lower extremity swelling and pain has decreased in intensity. No new labs has been repeated today blood culture negative Objective - Vital Signs Vital signs: Vital Signs Temp 97.8 F 11/27/23 07:24 Pulse 55 L 11/27/23 07:24 Resp 18 11/27/23 07:24 BP 96/56 11/27/23 07:24 Pulse Ox 95 11/27/23 02:00 FiO2 Intake & Output 11/26/23 11/27/23 11/27/23 18:59 06:59 18:59 Intake Total 519 Output Total 450 450 Balance 69 -450 Weight 70.9 kg Intake: Oral 519 Output: Urine 450 450 Other: Voiding Method Bedside Commode Bedside Commode # Voids 1 # Bowel Movements 1 - Exam GENERAL DESCRIPTION: An elderly female lying in bed in no distress RESPIRATORY SYSTEM: Unlabored breathing , decreased breath sounds at bases HEART: S1 S2 regular rate and rhythm , ABDOMEN: Soft , no tenderness EXTREMITIES: Diffuse swelling to bilateral extremity did have superficial ulceration bilateral feet with minimal redness - Labs CBC & Chem 7: 11/22/23 13:57 11/26/23 07:56 Labs: Abnormal Lab Results - Last 24 Hours (Table) 11/26/23 11/26/23 Range/Units 12:26 17:30 POC Glucose (mg/dL) 152 H 209 H (70-110) mg/dL Assessment and Plan (1) Bilateral lower leg cellulitis Current Visit: Yes Status: Acute Code(s): L03.116 - CELLULITIS OF LEFT LOWER LIMB; L03.115 - CELLULITIS OF RIGHT LOWER LIMB SNOMED Code(s): 531847452 (2) Skin ulcers of foot, bilateral Current Visit: Yes Status: Acute Code(s): L97.519 - NON-PRS CHRONIC ULCER OTH PRT RIGHT FOOT W UNSP SEVERITY; L97.529 - NON-PRESSURE CHRONIC ULCER OTH PRT LEFT FOOT W UNSP SEVERITY SNOMED Code(s): 52952339 Plan: 1patient presented hospital with increasing swelling to bilateral lower extremity with blister formation. Superficial ulceration from ruptured blister and concerning for cellulitis likely from gram-positive skin grisel in this pat ient who did have evidence of fluid overload x-ray findings are mostly related to fluid overload CHF rather than pneumonia 2-patient to continue local wound care with apply Aquacel dressing to the open blister area followed by Waylon wrap from just above the toe to below the knee change every 48 hour 3-patient has shown clinical improvement and will continue with cefazolin with a plan for short course of oral Keflex on discharge Dictation was produced using [employer] dictation software. please excuse any grammatical, word or spelling errors. Time with Patient: Less than 30
[2023-11-27 17:41] LABS: Glucose,Whole Blood 103 mg/dL (70-110)
--- NOTE | 2023-11-27 19:17 | P.PN ---
Progress Note - Text Progress Note Date: 11/27/23 Chief Complaint: Edema This is a pleasant 88-year-old patient, follows with Dr. Abelardo Lofton. Chronic stable medical conditions include diabetes, GERD, hypertension, hyperlipidemia, heart valve problems, CAD with stent. Follows with automobile club membership sales agent Dr. De La Torre. On October 31, 2023: Patient had a cardiac catheterization by Dr. De La Torre. Had a successful stent to the mid LAD, proximal LAD,.. Also found to have severely calcified right and left coronary system. She also went for PCI of the RCA. Patient now presents with increasing swelling of the lower extremity. With blisters on the feet. Uses 2 pillows at night. Some shortness of breath. Able to get around the house. Does use a walker outside the house. No cough no fever no chills. Appetite is okay. Patient is accompanied by her daughter who lives across the street. November 23: Sitting up in bed. Daughter at the bedside. Breathing better. Decrease in lower extremity edema. Remains on IV Lasix. Being followed by cardiology. Discussed with patient. Increase activity. November 24: Feeling better. Tolerating diet. Edema going down. On IV Lasix. Spoke to daughter at bedside. Patient to sit up in a chair. November 25: Breathing better. Edema is going down. Seen by cardiology. Continue IV Lasix for another 24 hours. Have the patient ambulate with a walker from home. Family at the bedside will see how she does. Eating well. November 26: Dr. De La Torre called this morning he feels the patient needs to be in the hospital for another day or 2. I did speak to the patient and daughter at the bedside. Patient again sat up in a chair. And ambulate as tolerated. Did work with physical therapy. Diamox for metabolic alkalosis was added. Chest x- ray showing some left possible pleural effusion. Patient blood pressure running low. Later this afternoon per cardiology was switched over to oral Lasix. November 27: Diuretics to continue as per cardiology. Spoke to the hospice social worker. Pending authorization for discharge. Patient and the daughter now keen to go to rehab. Oral Keflex on discharge for lower extremity cellulitis. Active Medications Acetaminophen (Acetaminophen Tab 325 Mg Tab) 650 mg PO Q6HR PRN PRN Reason: Mild Pain or Fever > 100.5 Last Admin: 11/27/23 16:04 Dose: 650 mg Alprazolam (Alprazolam 0.25 Mg Tab) 0.25 mg PO Q6HR PRN PRN Reason: Anxiety Apixaban (Apixaban 5 Mg Tab) 5 mg PO BID [facility]; Protocol Last Admin: 11/27/23 09:19 Dose: 5 mg Atorvastatin Calcium (Atorvastatin 40 Mg Tab) 40 mg PO DAILY [facility] Last Admin: 11/27/23 09:18 Dose: 40 mg Calcium Carbonate/Glycine (Calcium Carbonate 500 Mg Chewable) 1,000 mg PO Q4HR PRN PRN Reason: Dyspepsia Clopidogrel Bisulfate (Clopidogrel 75 Mg Tab) 75 mg PO DAILY [facility] Last Admin: 11/27/23 09:18 Dose: 75 mg Dapagliflozin (Dapagliflozin Propanediol 10 Mg Tablet) 10 mg PO DAILY [facility] Last Admin: 11/27/23 09:18 Dose: 10 mg Dextrose/Water (Dextrose 50% Syringe 50 Ml) 25 ml IVP PER PROTOCOL PRN; Protocol PRN Reason: Hypoglycemia Dextrose/Water (Dextrose 50% Syringe 50 Ml) 50 ml IVP PER PROTOCOL PRN; Protocol PRN Reason: Hypoglycemia Furosemide (Furosemide 40 Mg Tab) 40 mg PO BID@0900,1600 [facility] Last Admin: 11/27/23 16:04 Dose: 40 mg Gabapentin (Gabapentin 400 Mg Cap) 1,200 mg PO HS [facility] Last Admin: 11/26/23 20:29 Dose: 1,200 mg Gabapentin (Gabapentin 300 Mg Cap) 600 mg PO BID@0900,1600 [facility] Last Admin: 11/27/23 16:04 Dose: 600 mg Cefazolin Sodium/Dextrose 1 gm (/ IV Solution) 50 mls @ 100 mls/hr IVPB Q12HR [facility] Last Admin: 11/27/23 09:19 Dose: 100 mls/hr Insulin Aspart (Insulin Aspart (Novolog) 100 Unit/Ml Vial) 0 unit SQ AC-TID [facility]; Protocol Last Admin: 11/27/23 17:48 Dose: Not Given Lactulose (Lactulose 20 Gm/30 Ml Cup) 20 gm PO DAILY PRN PRN Reason: Constipation Melatonin (Melatonin 3 Mg Tablet) 3 mg PO HS PRN PRN Reason: Insomnia Naloxone HCl (Naloxone 0.4 Mg/Ml 1 Ml Vial) 0.2 mg IV Q2M PRN PRN Reason: Opioid Reversal Ondansetron HCl (Ondansetron 4 Mg/2 Ml Vial) 4 mg IVP Q8HR PRN PRN Reason: Nausea And Vomiting Pantoprazole Sodium (Pantoprazole 40 Mg Tablet) 40 mg PO AC-BRKFST [facility] Last Admin: 11/27/23 05:51 Dose: 40 mg Pioglitazone HCl (Pioglitazone 15 Mg Tab) 15 mg PO DAILY [facility] Last Admin: 11/27/23 09:18 Dose: 15 mg Sacubitril/Valsartan (Sacubitril/Valsartan 24 Mg-26 Mg Tablet) 1 each PO BID [facility] Last Admin: 11/27/23 09:19 Dose: 1 each Social history: Does live alone. Quit smoking 40 years ago. No alcohol. Daughter lives across the street Physical examination: VITAL SIGNS: 97.8, 40, 18, 96/56, 95% room air GENERAL: Reclining in bed, comfortable EYES: Pupils equal. Conjunctiva tiana l. HEENT: External appearance of nose and ears normal, oral cavity grossly normal. NECK: JVD possibly raised; masses not palpable. HEART: First and second heart sounds are normal; edema decreased. LUNGS: Respiratory rate normal l; l mild left basilar crackles ABDOMEN: Soft, nontender, liver spleen not palpable, no masses palpable. PSYCH: Alert and oriented x3; mood and affect tiana l. MUSCULOSKELETAL:No Clubbing/cyanosis;muscles-grossly intact. OA INVESTIGATIONS, reviewed in the clinical context: November 26: Potassium 3.8 bicarb 31. 37 creatinine 1.24 November 25: Potassium 3.8 creatinine 1.2 November 24: Potassium 3.8 BUN 35 creatinine 1.12 2D echocardiogram: EF 20-25% severe global hypokinesis. Moderate mitral regurgitation, moderate mitral annular calcification. Tricuspid regurgitation. November 23: Potassium 4.2 BUN 36 creatinine 1.08 November 22: White count 5.3 hemoglobin 9.2 platelets 223 potassium 5.5 BUN 38 creatinine 1.0 Troponin I 0.069. proBNP 58942 EKG tracing personally reviewed by me-multiple PVCs. Questionable heart block Chest x-ray film personally reviewed by me: Cardiomegaly. Vascular congestion Assessment and plan: -Acute congestive heart failure exacerbation. From systolic dysfunction EF 20- 25% ischemic cardiomyopathy: Improving Strict I's and O. Fluid restriction 2000 cc a day Lasix 40 mg p.o. twice daily. Being followed by cardiology -Moderate mitral, tricuspid regurgitation -Atrial fibrillation -Coronary artery disease, with recent stent to the mid LAD, proximal LAD. Also underlying severely calcified right and left coronary system. Also PCI of the RCA: October 31, [address] De La Torre Aspirin. Plavix Lipitor. 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 Accu-Cheks with sliding scale insulin -Mild cellulitis on the feet secondary to breakdown of blisters from CHF IV Ancef -Primary osteoarthritis Tylenol as needed -Microcytic anemia Check iron studies -Hyperkalemia: Corrected IV Lasix. Stopping lisinopril. -Full code Pending disposition to rehab. Past Medical History Past Medical History: Heart Failure, Diabetes Mellitus, GERD/Reflux, Hyperlipidemia, Hypertension, Skin Disorder Additional Past Medical History / Comment(s): recent adm to [facility] for SOB, adjusted meds, is better, but still SOB w/exertion, possible heart valve problem, sore right leg after caught it on car door pretty much gone History of Any Multi-Drug Resistant Organisms: None Reported Past Surgical History: Section, Heart Catheterization, Heart Catheterization With Stent, Hysterectomy, Joint Replacement, Orthopedic Surgery Additional Past Surgical History / Comment(s): 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
[2023-11-27 20:21] LABS: Glucose,Whole Blood 131 mg/dL (70-110)
[2023-11-27] MEDS: oxyCODONE-APAP 5-325MG 1 EACH TAB PO PRN (21:09)
[2023-11-28 02:20] VITALS: RESP 16
[2023-11-28 05:52] LABS: Glucose,Whole Blood 108 mg/dL (70-110)
[2023-11-28 08:33] VITALS: PULSE 46; TEMP 97.7
[2023-11-28 11:35] LABS: Glucose,Whole Blood 199 mg/dL (70-110)
--- NOTE | 2023-11-28 12:04 | P.PN ---
Subjective Progress Note Date: 11/28/23 Principal diagnosis: Reason for follow-up is bilateral lower extremity ulcer and cellulitis Patient is a 88-year-old female with a past medical history significant for diabetes mellitus reflux hypertension hyperlipidemia heart failure presenting to the hospital for evaluation of generalized weakness and also complaining of increasing swelling to bilateral lower extremity along with blisters and superficial ulceration and concerning for cellulitis. On today's evaluation that is 11/28/2023,the patient denies any fever or any chills, patient is breathing comfortably on room air, the patient denies chest pain shortness of breath and no significant cough, patient denies abdominal pain, no nausea vomiting or diarrhea. Lower extremity pain and discomfort has decreased. No new labs has been obtained today Objective - Vital Signs Vital signs: Vital Signs Temp 97.7 F 11/28/23 08:00 Pulse 46 L 11/28/23 08:00 Resp 16 11/28/23 08:00 BP 88/33 11/28/23 08:00 Pulse Ox 92 L 11/28/23 08:00 FiO2 Intake & Output 11/27/23 11/28/23 11/28/23 18:59 06:59 18:59 Intake Total 500 120 Output Total 300 400 Balance 200 -280 Weight 71 kg Intake: Oral 500 120 Output: Urine 400 Urine/Stool Mix 300 Other: Voiding Method Bedside Commode Bedside Commode Bedside Commode # Voids 1 0 - Exam GENERAL DESCRIPTION: An elderly female lying in bed in no distress RESPIRATORY SYSTEM: Unlabored breathing , decreased breath sounds at bases HEART: S1 S2 regular rate and rhythm , ABDOMEN: Soft , no tenderness EXTREMITIES: Diffuse swelling to bilateral extremity did have superficial ulceration bilateral feet with minimal redness - Labs CBC & Chem 7: 11/22/23 13:57 11/26/23 07:56 Labs: Abnormal Lab Results - Last 24 Hours (Table) 11/27/23 11/27/23 11/28/23 Range/Units 12:20 20:19 11:31 POC Glucose (mg/dL) 136 H 131 H 199 H (70-110) mg/dL Microbiology - Last 24 Hours (Table) 11/22/23 13:57 Blood Culture - Final Blood Assessment and Plan (1) Bilateral lower leg cellulitis Current Visit: Yes Status: Acute Code(s): L03.116 - CELLULITIS OF LEFT LOWER LIMB; L03.115 - CELLULITIS OF RIGHT LOWER LIMB SNOMED Code(s): 971312876 (2) Skin ulcers of foot, bilateral Current Visit: Yes Status: Acute Code(s): L97.519 - NON-PRS CHRONIC ULCER OTH PRT RIGHT FOOT W UNSP SEVERITY; L97.529 - NON-PRESSURE CHRONIC ULCER OTH PRT LEFT FOOT W UNSP SEVERITY SNOMED Code(s): 88018276 Plan: 1patient presented hospital with increasing swelling to bilateral lower extremity with blister formation. Superficial ulceration from ruptured blister and concerning for cellulitis likely from gram-positive skin grisel in this patient who did have evidence of fluid overload x-ray findings are mostly related to fluid overload CHF rather than pneumonia 2-patient to continue local wound care with apply Aquacel dressing to the open blister area followed by Waylon wrap from just above the toe to below the knee change every 48 hour 3-patient advised a short course of oral Keflex on discharge x 7 days along with Waylon wrap the leg to keep the swelling down Daughter at the bedside questions were answered Dictation was produced using [employer] dictation software. please excuse any grammatical, word or spelling errors. Time with Patient: Less than 30
--- NOTE | 2023-11-28 12:20 | P.DS ---
Providers Date of admission: 11/22/23 18:22 Expected date of discharge: 11/28/23 Attending physician: Johnathon Hwang Consults: 11/22/23 13:29 Consult Physician Routine Consulting Provider: Jose C Nolen Consult Reason/Comments: weak Do you want consulting provider notified?: Yes 11/22/23 18:28 Consult Physician Routine Consulting Provider: Ross De La Torre Consult Reason/Comments: chf, Do you want consulting provider notified?: Yes Primary care physician: Abelardo Lofton [place] [facility] Course: Chief Complaint: Edema This is a pleasant 88-year-old patient, follows with Dr. Abelardo Lofton. Chronic stable medical conditions include diabetes, GERD, hypertension, hyperlipidemia, heart valve problems, CAD with stent. Follows with operations lieutenant Dr. De La Torre. On October 31, 2023: Patient had a cardiac catheterization by Dr. De La Torre. Had a successful stent to the mid LAD, proximal LAD,.. Also found to have severely calcified right and left coronary system. She also went for PCI of the RCA. Patient now presents with increasing swelling of the lower extremity. With blisters on the feet. Uses 2 pillows at night. Some shortness of breath. Able to get around the house. Does use a walker outside the house. No cough no fever no chills. Appetite is okay. Patient is accompanied by her daughter who lives across the street. November 23: Sitting up in bed. Daughter at the bedside. Breathing better. Decrease in lower extremity edema. Remains on IV Lasix. Being followed by cardiology. Discussed with patient. Increase activity. November 24: Feeling better. Tolerating diet. Edema going down. On IV Lasix. Spoke to daughter at bedside. Patient to sit up in a chair. November 25: Breathing better. Edema is going down. Seen by cardiology. Continue IV Lasix for another 24 hours. Have the patient ambulate with a walker from home. Family at the bedside will see how she does. Eating well. November 26: Dr. De La Torre called this morning he feels the patient needs to be in the hospital for another day or 2. I did speak to the patient and daughter at the bedside. Patient again sat up in a chair. And ambulate as tolerated. Did work with physical therapy. Diamox for metabolic alkalosis was added. Chest x- ray showing some left possible pleural effusion. Patient blood pressure running low. Later this afternoon per cardiology was switched over to oral Lasix. November 27: Diuretics to continue as per cardiology. Spoke to the addiction social worker. Pending authorization for discharge. Patient and the daughter now keen to go to rehab. Oral Keflex on discharge for lower extremity cellulitis. November 28: Up in a recliner. Daughter at the bedside. Accepted at rehab. Complete 5 more days of Keflex. Lower extremity dressing changes per ID. P atient follow-up with Dr. De La Torre her operations lieutenant. Care was discussed with the patient daughter questions answered. Discussion and discharge planning more than 35 minutes Social history: Does live alone. Quit smoking 40 years ago. No alcohol. Daughter lives across the street Physical examination: VITAL SIGNS: 97.7, 46, 16, 88/33, 92% room air GENERAL: In a recliner, comfortable EYES: Pupils equal. Conjunctiva tiana l. HEENT: External appearance of nose and ears normal, oral cavity grossly normal. NECK: JVD possibly raised; masses not palpable. HEART: First and second heart sounds are normal; edema much improved LUNGS: Respiratory rate normal l; l mild left basilar crackles ABDOMEN: Soft, nontender, liver spleen not palpable, no masses palpable. PSYCH: Alert and oriented x3; mood and affect tiana l. MUSCULOSKELETAL:No Clubbing/cyanosis;muscles-grossly intact. OA INVESTIGATIONS, reviewed in the clinical context: November 26: Potassium 3.8 bicarb 31. 37 creatinine 1.24 November 25: Potassium 3.8 creatinine 1.2 November 24: Potassium 3.8 BUN 35 creatinine 1.12 2D echocardiogram: EF 20-25% severe global hypokinesis. Moderate mitral regurgitation, moderate mitral annular calcification. Tricuspid regurgitation. November 23: Potassium 4.2 BUN 36 creatinine 1.08 November 22: White count 5.3 hemoglobin 9.2 platelets 223 potassium 5.5 BUN 38 creatinine 1.0 Troponin I 0.069. proBNP [id number] EKG tracing personally reviewed by me-multiple PVCs. Questionable heart block Chest x-ray film personally reviewed by me: Cardiomegaly. Vascular congestion Assessment and plan: -Acute congestive heart failure exacerbation. From systolic dysfunction EF 20- 25% ischemic cardiomyopathy: Improving Strict I's and O. Fluid restriction 2000 cc a day Lasix 40 mg p.o. twice daily. Antonellao. Farvenicega. -Moderate mitral, tricuspid regurgitation -Paroxysmal atrial fibrillation Eliquis -Coronary artery disease, with recent stent to the mid LAD, proximal LAD. Also underlying severely calcified right and left coronary system. Also PCI of the RCA: October 31, [address] De La Torre Aspirin. Plavix Lipitor. 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 Accu-Cheks with sliding scale insulin -Mild cellulitis on the feet secondary to breakdown of blisters from CHF IV Ancef. 5 more days of Keflex -Primary osteoarthritis Tylenol as needed -Microcytic anemia Outpatient workup -Hyperkalemia: Corrected -DNR -Disposition: [facility] Advance care planning [November 28, 2023] This was discussed in detail with the patient daughter at the bedside. Questions answered. Clinical status discussed. Patient has decided to proceed with a DNR status. Time spent about 20 minutes Past Medical History Past Medical History: Heart Failure, Diabetes Mellitus, GERD/Reflux, Hyperlipidemia, Hypertension, Skin Disorder Additional Past Medical History / Comment(s): recent adm to [facility] for SOB, adjusted meds, is better, but still SOB w/exertion, possible heart valve problem, sore right leg after caught it on car door pretty much gone History of Any Multi-Drug Resistant Organisms: None Reported Past Surgical History: Section, Heart Catheterization, Heart Catheterization With Stent, Hysterectomy, Joint Replacement, Orthopedic Surgery Additional Past Surgical History / Comment(s): 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 Plan - Discharge Summary Discharge Rx Participant: No New Discharge Prescriptions: New Sacubitril/Valsartan [Entresto 24 mg-26 mg Tablet] 1 each PO BID tab Dapagliflozin Propanediol [Farxiga] 10 mg PO DAILY tab Melatonin 3 mg PO HS PRN tab PRN Reason: Insomnia INSULIN ASPART (NovoLOG) [NovoLOG (formulary)] 0 unit SQ AC-TID each Cephalexin [Keflex] 250 mg PO Q8HR #15 capsule Apixaban [Eliquis] 5 mg PO BID tab Gabapentin [Neurontin] 600 mg PO BID@0900,1600 #6 cap oxyCODONE-APAP 5-325MG [Percocet 5-325 mg] 1 each PO Q8H PRN #9 tab PRN Reason: Pain Continue Lansoprazole [Prevacid] 30 mg PO DAILY Clopidogrel [Plavix] 75 mg PO DAILY Cholecalciferol [Vitamin D3 (25 Mcg = 1000 Iu)] 1,000 unit PO DAILY@1200 #1 tab Pioglitazone [Actos] 15 mg PO DAILY Atorvastatin Calcium [Lipitor] 40 mg PO HS Gabapentin 1,200 mg PO HS #6 tab Changed Furosemide [Lasix] 40 mg PO BID #0 Discontinued Gabapentin [Neurontin] 600 mg PO BID-W/MEALS Aspirin 81 mg PO HS lisinopriL [Zestril] 5 mg PO DAILY #90 tab Potassium Chloride ER [K-Dur 10] 10 meq PO DAILY ramipriL 2.5 mg PO DAILY Doxycycline Hyclate 100 mg PO BID Discharge Medication List Clopidogrel [Plavix] 75 mg PO DAILY 07/16/14 [History] Lansoprazole [Prevacid] 30 mg PO DAILY 07/16/14 [History] Cholecalciferol [Vitamin D3 (25 Mcg = 1000 Iu)] 1,000 unit PO DAILY@1200 #1 tab 07/21/14 [Rx] Pioglitazone [Actos] 15 mg PO DAILY 10/16/23 [History] Atorvastatin Calcium [Lipitor] 40 mg PO HS 11/22/23 [History] Apixaban [Eliquis] 5 mg PO BID tab 11/27/23 [Rx] Dapagliflozin Propanediol [Farxiga] 10 mg PO DAILY tab 11/27/23 [Rx] Furosemide [Lasix] 40 mg PO BID #0 11/27/23 [Rx] Gabapentin 1,200 mg PO HS #6 tab 11/27/23 [Rx] Gabapentin [Neurontin] 600 mg PO BID@0900,1600 #6 cap 11/27/23 [Rx] INSULIN ASPART (NovoLOG) [NovoLOG (formulary)] 0 unit SQ AC-TID each 11/27/23 [Rx] Melatonin 3 mg PO HS PRN tab 11/27/23 [Rx] Sacubitril/Valsartan [Entresto 24 mg-26 mg Tablet] 1 each PO BID tab 11/27/23 [Rx] Cephalexin [Keflex] 250 mg PO Q8HR #15 capsule 11/28/23 [Rx] oxyCODONE-APAP 5-325MG [Percocet 5-325 mg] 1 each PO Q8H PRN #9 tab 11/28/23 [Rx] Follow up Appointment(s)/Referral(s): Ross De La Torre MD [STAFF PHYSICIAN] - 1 Week Abelardo Lofton MD [Primary Care Provider] - 1-2 days [facility]idential [facility] [NON-STAFF] - 1 Week Activity/Diet/Wound Care/Special Instructions: wound dressing per dr nolen
[2023-11-28 13:16] VITALS: BP 98/58
--- NOTE | 2023-11-29 12:59 | CDI ---
Documentation Clarification Form Date: 11/29/2023 12:49:09 PM From: Aster Arboleda Admit Date: 11/22/2023 06:22:00 PM Patient Name: Concha Tony Visit Number: [id number] Discharge Date: 11/28/2023 01:52:00 PM ATTENTION: The Clinical Documentation Specialists (CDI) and [facility] Coding Staff appreciate your assistance in clarifying documentation. Please respond to the clarification below the line at the bottom and electronically sign. The CDI & [facility] Coding staff will review the response and follow-up if needed. Please note: Queries are made part of the Legal Health Record. If you have any questions, please contact the author of this message via ITS. Dr. Johnathon Hwang Cellulitis bilateral feet with ulcer is documented through the chart. Patient is also diabetic. Please clarify if there is a relationship between the patient's cellulitis and diabetes. History/Risk Factors: DM type II, breakdown of blisters causing cellulitis and ulcers of feet. CHF Clinical Indicators: cellulitis bilateral legs Treatment: IV Ancef, Keflex Please clarify the relationship, if any, which is clinically appropriate for this patient: [ + ] Cellulitis is related to Diabetes [ ] Cellulitis is not related to Diabetes [ ] Other explanation of clinical findings (please specify) [ ] Unable to determine (no explanation for clinical findings) MTDD
== END 2023-11-28 13:52 | DRG 637 ==
LOC: EC 11:36 → 6NMEDSUR 14:05 → OBSVTOIN 18:22
PROVIDERS: ADMIT Hospitalist; ATTEND Hospitalist
DX: E11.628 Type 2 diabetes mellitus with other skin complications (principal); I50.23 Acute on chronic systolic (congestive) heart failure; L03.116 Cellulitis of left lower limb; E87.3 Alkalosis; J98.11 Atelectasis; L03.115 Cellulitis of right lower limb; E66.9 Obesity, unspecified; E11.649 Type 2 diabetes mellitus with hypoglycemia without coma; E11.621 Type 2 diabetes mellitus with foot ulcer; E11.42 Type 2 diabetes mellitus with diabetic polyneuropathy; D50.9 Iron deficiency anemia, unspecified; E78.5 Hyperlipidemia, unspecified; E87.5 Hyperkalemia; F41.9 Anxiety disorder, unspecified; G47.00 Insomnia, unspecified; I08.3 Combined rheumatic disorders of mitral, aortic and tricuspid valves; I11.0 Hypertensive heart disease with heart failure; I25.10 Atherosclerotic heart disease of native coronary artery without angina pectoris; I25.5 Ischemic cardiomyopathy; L97.519 Non-pressure chronic ulcer of other part of right foot with unspecified severity; I48.0 Paroxysmal atrial fibrillation; L97.529 Non-pressure chronic ulcer of other part of left foot with unspecified severity; Z68.34 Body mass index [BMI] 34.0-34.9, adult; I49.3 Ventricular premature depolarization; K21.9 Gastro-esophageal reflux disease without esophagitis; Z66 Do not resuscitate; I45.9 Conduction disorder, unspecified; K59.00 Constipation, unspecified; M19.91 Primary osteoarthritis, unspecified site; S90.821A Blister (nonthermal), right foot, initial encounter; S90.822A Blister (nonthermal), left foot, initial encounter; Z79.02 Long term (current) use of antithrombotics/antiplatelets; Z79.82 Long term (current) use of aspirin; Z79.84 Long term (current) use of oral hypoglycemic drugs; Z79.899 Other long term (current) drug therapy; Z87.891 Personal history of nicotine dependence; Z95.5 Presence of coronary angioplasty implant and graft; Z96.642 Presence of left artificial hip joint; Z28.310 Unvaccinated for COVID-19
CPT/HCPCS: 36410; 36415; 71046; 76937; 80048; 80053; 83605; 83735; 83880; 84100; 84145; 84484; 85025; 85610; 85730; 87040; 93005; 93306; 94760

== ENCOUNTER 2023-12-31 23:09 | Inpatient (IN) | payer MEDICARE ==
--- NOTE | 2024-01-01 00:01 | ED ---
General Adult HPI - General Chief complaint: Weakness Stated complaint: Weakness Time Seen by Provider: 12/31/23 23:17 Source: EMS Mode of arrival: EMS Limitations: physical limitation - History of Present Illness Initial comments: Patient is an 88-year-old woman transferred here from [facility] to have increased level of care. The patient had gone to the emergency department there like this afternoon. She had been transferred from [facility] home where she was becoming progressively more weak. The patient has not been able to walk since Sunday (12/27) when she did have a ground-level fall reportedly with no injury. As she was getting worse and worse she was transferred to the other hospital this afternoon. The workup there included labs that showed the patient to be moderately anemic with hemoglobin 7.2. Chemistries revealed hyperkalemia potassium 5.4. Renal failure with BUN 74, creatinine 2.9. Elevation of AST ALT at 1266 and 553. Alk phos 456, bilirubin 3.5. Magnesium is 1.4. Troponin is 0.109. BNP 20653. INR is 3.9. Lactic acid 6.0. the patient had a chest x-ray that was interpreted as showing pulmonary vascular congestion and bilateral effusions. The patient had CT of the abdomen that was interpreted as showing cardiomegaly with moderate bilateral effusions and suspected right lung base pneumonia. Treatment at the other facility included 1 g Rocephin, 40 mg Lasix, 1 g magnesium, Zofran 4 mg. - Related Data Home Medications Medication Instructions Recorded Confirmed Clopidogrel [Plavix] 75 mg PO DAILY 07/16/14 01/01/24 Lansoprazole [Prevacid] 30 mg PO DAILY 07/16/14 01/01/24 Pioglitazone [Actos] 15 mg PO DAILY 10/16/23 01/01/24 Atorvastatin Calcium [Lipitor] 40 mg PO HS 11/22/23 01/01/24 Acetaminophen [Tylenol] 325 - 650 mg PO Q6H PRN 01/01/24 01/01/24 Cholecalciferol [Vitamin D3 (25 25 mcg PO DAILY 01/01/24 01/01/24 Mcg = 1000 Iu)] Furosemide [Lasix] 80 mg PO DAILY 01/01/24 01/01/24 Gabapentin 300 mg PO BID@0800,1600 01/01/24 01/01/24 INSULIN ASPART (NovoLOG) [NovoLOG See Protocol SQ AC-TID 01/01/24 01/01/24 (formulary)] Melatonin 5 mg PO HS 01/01/24 01/01/24 Midodrine [ProAmatine] 5 mg PO BID 01/01/24 01/01/24 Ondansetron [Ondansetron Odt] 4 mg PO Q6H PRN 01/01/24 01/01/24 Potassium Chloride [Klor-Con 10 ER] 10 meq PO DAILY 01/01/24 01/01/24 Tums 1000mg 2,000 - 3,000 mg PO DAILY PRN 01/01/24 01/01/24 polyethylene glycoL 3350 [Miralax] 17 gm PO DAILY PRN 01/01/24 01/01/24 Previous Rx's Medication Instructions Recorded Apixaban [Eliquis] 5 mg PO BID tab 11/27/23 Gabapentin 1,200 mg PO HS #6 tab 11/27/23 Allergies Allergy/AdvReac Type Severity Reaction Status Date / Time sulfamethoxazole Allergy Itching Verified 01/01/24 08:56 [From Bactrim] trimethoprim [From Bactrim] Allergy Itching Verified 01/01/24 08:56 Review of Systems ROS Statement: Those systems with pertinent positive or pertinent negative responses have been documented in the HPI. ROS Other: All systems not noted in ROS Statement are negative. Past Medical History Past Medical History: Heart Failure, Diabetes Mellitus, GERD/Reflux, Hyperlipidemia, Hypertension, Skin Disorder Additional Past Medical History / Comment(s): recent adm to [facility], [place], operated by [facility] for SOB, adjusted meds, is better, but still SOB w/exertion, possible heart valve problem, sore right leg after caught it on car door pretty much gone History of Any Multi-Drug Resistant Organisms: None Reported Past Surgical History: Section, Heart Catheterization, Heart Catheterization With Stent, Hysterectomy, Joint Replacement, Orthopedic Surgery Additional Past Surgical History / Comment(s): 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, Past Anesthesia/Blood Transfusion Reactions: No Reported Reaction Date of Last Stent Placement:: unsure Past Psychological History: No Psychological Hx Reported Smoking Status: Former smoker Past Alcohol Use History: None Reported Past Drug Use History: None Reported - Past Family History Son(s) Additional Family Medical History / Comment(s): nephritis General Exam Limitations: physical limitation General appearance: alert, in no apparent distress Head exam: Present: atraumatic, normocephalic Eye exam: Present: normal appearance. Absent: scleral icterus, conjunctival injection Neck exam: Present: normal inspection, full ROM. Absent: tenderness Respiratory exam: Present: rales. Absent: respiratory distress, wheezes, rhonchi, stridor, accessory muscle use Cardiovascular Exam: Present: regular rate, normal rhythm, normal heart sounds. Absent: systolic murmur, diastolic murmur, rubs, gallop GI/Abdominal exam: Present: soft. Absent: distended, tenderness, guarding, rebound, rigid, mass Extremities exam: Present: normal inspection, normal capillary refill. Absent: pedal edema, calf tenderness Back exam: Present: normal inspection. Absent: CVA tenderness (R), CVA tenderness (L) Neurological exam: Present: alert, CN II-XII intact. Absent: oriented X3 (Disoriented to date), motor sensory deficit Skin exam: Present: warm, dry, intact, normal color. Absent: rash Course Vital Signs 12/31/23 01/01/24 23:14 01:33 Pulse Rate 68 64 Respiratory 16 18 Rate Blood Pressure 68/41 76/51 O2 Sat by Pulse 100 99 Oximetry EKG Findings - EKG Comments: EKG Findings:: Possible old anterior/septal [place] based on Q waves - EKG Results: EKG: interpreted by DEA, normal axis EKG shows: atrial fibrillation (Rate approximately 67 bpm) - Blocks, [place], Hypertrophy, ST Abn: QRS axis and voltage: low voltage (<0.5 MV total QRS and <1.0 MV in each precordial lead) Medical Decision Making - Medical Decision Making Was pt. sent in by a medical professional or institution (, PA, AUTO APPRENTICE MECHANIC, urgent care, hospital, or mcc...) When possible be specific @ -The patient is transferred here from the outside hospital for higher level of care Did you speak to anyone other than the patient for history (EMS, parent, family, police, friend...)? What history was obtained from this source @ -[No] Did you review nursing and triage notes (agree or disagree)? Why? @ -[I reviewed and agree with nursing and triage notes] Were old charts reviewed (outside hosp., previous admission, EMS record, old EKG, old radiological studies, urgent care reports/EKG's, mcc records)? Report findings @ -[Transfer records were reviewed] Differential Diagnosis (chest pain, altered mental status, abdominal pain women, abdominal pain men, vaginal bleeding, weakness, fever, dyspnea, syncope, headache, dizziness, GI bleed, back pain, seizure, CVA, palpatations, mental health, musculoskeletal)? @ -[Differential Dyspnea: Coronary syndrome, arrhythmia, tamponade, asthma, COPD, pulmonary embolism, pneumonia, pneumothorax, pulmonary effusion, anaphylaxis, diabetic ketoacidosis, flailed chest, pulmonary contusion, diaphragmatic rupture, anemia, neuromuscula r, this is not meant to be an all-inclusive list. EKG interpreted by me (3pts min.). @ -[I interpreted as above] X-rays interpreted by me (1pt min.). @ -[None done] CT interpreted by me (1pt min.). @ -[None done] U/S interpreted by me (1pt. min.). @ -[None done] What testing was considered but not performed or refused? (CT, X-rays, U/S, labs)? Why? @ -[None] What meds were considered but not given or refused? Why? @ -[None] Did you discuss the management of the patient with other professionals (professionals i.e. , PA, AUTO APPRENTICE MECHANIC, lab, RT, psych nurse, health and social care teacher, battery test engineer, teacher, mounted police officer, pillowcase cleaner)? Give summary @ -[The case is discussed with admitting physician and treatment recommendations are incorporated Was smoking cessation discussed for >3mins.? @ -[No] Was critical care preformed (if so, how long)? @ -[Yes, 35 minutes Were there social determinants of health that impacted care today? How? (Homelessness, low income, unemployed, alcoholism, drug addiction, tr ansportation, low edu. Level, literacy, decrease access to med. care, mcc, rehab)? @ -[No] Was there de-escalation of care discussed even if they declined (Discuss DNR or withdrawal of care, Hospice)? DNR status @ -[No] What co-morbidities impacted this encounter? (DM, HTN, Smoking, COPD, CAD, Ca ncer, CVA, ARF, Chemo, Hep., AIDS, mental health diagnosis, sleep apnea, morbid obesity)? @ -Diabetes, atrial fibrillation, hypertension Was patient admitted / discharged? Hospital course, mention meds given and route, prescriptions, significant lab abnormalities, going to OR and other pertinent info. @ -[This patient is an 88-year-old woman transferred here from the outside hospital to have higher level of care. The patient does appear to be very sick, with pneumonia, possible sepsis, and probably some underlying congestive heart failure versus valvular heart disease. Patient is admitted, antibiotics are continued, will have specialist consultations Undiagnosed new problem with uncertain prognosis? @ -[No] Drug Therapy requiring intensive monitoring for toxicity (Heparin, Nitro, Insu thaddeus, Cardizem)? @ -[No] Were any procedures done? @ -[No] Diagnosis/symptom? @ -[Acute pneumonia Exacerbation of congestive heart failure Anemia Acute, or Chronic, or Acute on Chronic? @ -[Acute Uncomplicated (without systemic symptoms) or Complicated (systemic symptoms)? @ -[Complicated Side effects of treatment? @ -[No] Exacerbation, Progression, or Severe Exacerbation? @ -[No] Poses a threat to life or bodily function? How? (Chest pain, [place], [place], pneumonia, PE, COPD, DKA, ARF, appy, cholecystitis, CVA, Diverticulitis, Homicidal, Suicidal, threat to staff... and all critical care pts) @ -[Yes patient manifesting evidence of at least 2 systems with endorgan failure, there is high risk of mortality - Lab Data Result diagrams: 01/01/24 00:39 01/01/24 03:45 Disposition Clinical Impression: Heart failure, Pneumonia Disposition: ADMITTED IP TO THIS HOSP Condition: Poor Is patient prescribed a controlled substance at d/c from ED?: No
[2024-01-01] MEDS ORDERED: PNEUMONIA PROTOCOL UTILIZED 1 EACH MISC PO PRN (00:11)
[2024-01-01] MEDS ORDERED: MORPHINE SULFATE 4 MG/ML SYRINGE IV STA (00:48)
[2024-01-01] MEDS: SODIUM CHLORIDE 0.9% 1,000 ML IV SCH (01:06)
[2024-01-01] MEDS: PIPERACILLIN-TAZOBACTAM 3.375 GM in SODIUM CHLORIDE 0.9% 100 ML IVPB STA (01:06)
[2024-01-01 01:10] LABS: ALT 673 U/L (4-34); African American GFR (CKD) 17 (>60 ml/min/1.73 sqM); Alkaline Phosphatase 447 U/L (38-126); Anion Gap 12 mmol/L; Blood Urea Nitrogen 84 mg/dL (7-17); Calcium 8.7 mg/dL (8.4-10.2); Carbon Dioxide 18 mmol/L (22-30); Chloride 103 mmol/L (98-107); Glucose 88 mg/dL (74-99); Magnesium 1.6 mg/dL (1.6-2.3); Non-African American GFR(CKD) 15 (>60 ml/min/1.73 sqM); Sodium 133 mmol/L (137-145); Total Bilirubin 3.6 mg/dL (0.2-1.3); Total Protein 6.1 g/dL (6.3-8.2)
[2024-01-01 01:24] LABS: Anisocytosis Slight; HCT 25.5 % (34.0-46.0); Hypochromasia Marked; MCH 23.4 pg (25.0-35.0); MCHC 29.9 g/dL (31.0-37.0); MCV 78.4 fL (80.0-100.0); Mean Platelet Volume 9.9; Microcytosis Slight; Platelet Count 175 k/uL (150-450); Poikilocytosis Slight; RBC 3.25 m/uL (3.80-5.40); RDW 19.2 % (11.5-15.5)
[2024-01-01 01:33] LABS: INR 2.7 (<1.2); Partial Thromboplastin Time 30.2 sec (22.0-30.0); Prothrombin Time 26.6 sec (10.0-12.5)
[2024-01-01 01:46] LABS: Glucose,Whole Blood 84 mg/dL (70-110)
[2024-01-01 02:01] LABS: AST 1513 U/L (14-36); NT-Pro-B-Type Natriuretic Pept 64400 pg/mL
[2024-01-01] MEDS ORDERED: VANCOMYCIN IV PER PHARMACY 1 EACH MISC MISCELLANE PRN (02:23)
[2024-01-01] MEDS ORDERED: VANCOMYCIN 1,250 MG in SODIUM CHLORIDE 0.9% 250 ML IVPB ONE (02:30)
[2024-01-01] MEDS: ALBUTEROL NEB (CONC) 2.5 MG/0.5 ML INHALATION ONE (02:46)
[2024-01-01 02:51] LABS: HGB 7.6 gm/dL (11.4-16.0)
[2024-01-01] MEDS: DEXTROSE 50% SYRINGE 50 ML IVP ONE ×3 (03:02→07:32)
[2024-01-01] MEDS: SODIUM ZIRCONIUM CYCLOSILICATE 10 GM PACKET PO ONE (03:02)
[2024-01-01] MEDS: CALCIUM GLUCONATE IN NACL 1 GM in SALINE 1 100ML.BAG IVPB ONE (03:02)
[2024-01-01] MEDS: INSULIN REGULAR 100 UNIT/ML VIAL (IV) IV ONE (03:03)
--- NOTE | 2024-01-01 04:12 | XR ---
EXAM: XR Chest, 1 View CLINICAL HISTORY: ITS.REASON XR Reason: suspected pneumonia/sepsis TECHNIQUE: Frontal view of the chest. COMPARISON: XR Chest dated 11/26/23 FINDINGS: Lungs: New right basilar atelectasis or airspace disease. Pleural space: Small right and moderate left pleural effusions or thickening, similar to the prior. No pneumothorax. Heart: Enlarged cardiac silhouette. Mediastinum: Unremarkable. Normal mediastinal contour. Bones/joints: Unremarkable. No acute fracture. IMPRESSION: 1. New right basilar atelectasis or airspace disease. May represent pneumonia or other etiology. 2. Small right and moderate left pleural effusions or thickening, similar to the prior. 3. Enlarged cardiac silhouette.
[2024-01-01 04:16] LABS: Band Neutrophils % 1 %; Neutrophils % (M) 93 %; Nucleated Red Blood Cells 8 /100 WBC (0-0); Total Cells Counted 200
[2024-01-01 04:17] LABS: Eosinophils # (M) 0.14 k/uL (0-0.7); Lymphocytes # (M) 0.54 k/uL (1.0-4.8); Monocytes # (M) 0.41 k/uL (0-1.0); Target Cells Present; WBC 13.6 k/uL (3.8-10.6)
[2024-01-01 04:18] LABS: Polychromasia Present
[2024-01-01 04:49] LABS: ALT 677 U/L (4-34); African American GFR (CKD) 17 (>60 ml/min/1.73 sqM); Albumin 2.5 g/dL (3.5-5.0); Alkaline Phosphatase 391 U/L (38-126); Blood Urea Nitrogen 84 mg/dL (7-17); Calcium 8.6 mg/dL (8.4-10.2); Carbon Dioxide 20 mmol/L (22-30); Glucose 107 mg/dL (74-99); Non-African American GFR(CKD) 15 (>60 ml/min/1.73 sqM); Total Bilirubin 3.4 mg/dL (0.2-1.3); Total Protein 5.5 g/dL (6.3-8.2)
[2024-01-01 04:57] LABS: Anion Gap 8 mmol/L; Chloride 106 mmol/L (98-107); Potassium 5.3 mmol/L (3.5-5.1); Sodium 134 mmol/L (137-145)
[2024-01-01 05:05] LABS: AST 1494 U/L (14-36)
[2024-01-01] MEDS: VANCOMYCIN 1,250 MG in SODIUM CHLORIDE 0.9% 250 ML IVPB ONE (05:19)
[2024-01-01 05:32] VITALS: TEMP 97
--- NOTE | 2024-01-01 05:48 | P.CNPUL ---
History of Present Illness Consult date: 01/01/24 Requesting physician: Shane Love Reason for consult: pneumonia, other (Pneumonia/sepsis) Chief complaint: Progressively worsening weakness and failure to thrive History of present illness: I am seeing this patient in new consultation today 01/01/2024 in the emergency room after she was transferred from [facility] late last night. Patient is a 88-year-old white female with past medical history significant for coronary artery disease with multiple previous stents, severe ischemic cardiomyopathy, diabetes mellitus, chronic kidney disease, hyperlipidemia, hypertension, atrial fibrillation anticoagulated on Eliquis, and other medical comorbidities. She was recently treated at our facility for congestive heart failure exacerbation and lower extremity cellulitis in November. Patient's daughters are at bedside who states that she has been essentially in and out of the hospital for the last 2 months. She has been gradually declining in function. She was living at at her daughter's up until about a week ago. She can no longer take care of herself, and is currently staying at a alf. Patient recently had an assisted fall on Sunday, and has been wheelchair-bound since. She has been progressively more weak, and was sent into [facility] for evaluation yesterday. At the outside facility, the patient was felt to have extensive right-sided pneumonia, she was given a dose of Rocephin at the outside facility. She was also complaining of some central abdominal pain and nausea/vomiting. An abdominal and pelvis CT did not show any acute intra-abdominal findings to explain the patient's symptoms. It did show cardiomegaly, bilateral pleural effusions, left greater than rate, and suspected right lower lobe infiltrate. She was then transferred to our emergency room, where she was found to be profoundly hypotensive, hypothermic, and is in a shock state. Patient's daughters state that she is a DO NOT RESUSCITATE/DO NOT INTUBATE. They have also declined central line placement. They wanted the patient treated conservatively. Patient is currently lying in bed, on 2 L/min nasal cannula, in no acute distress. SpO2 is 100%. She is lethargic and confused. When verbally stimulated, she does attempt to answer my questions. She is jaundiced. Blood pressures currently profoundly hypotensive. She is also hypothermic, and being placed on the external warming blanket. She was found to be anemic, with a hemoglobin of 7.2, at the outside facility. 1 unit of PRBCs is pending. Repeat CBC is pending. CMP at our facility has a sodium 133, potassium 6, chloride 103, serum bicarb 18, BUN 84, creatinine 2.76, glucose 88. Lactic acid level 2.8. AST AND ALT elevated, consistent with shock liver. Total bilirubin 3.6. Initial troponin 0.129. NT proBNP 64,400. EKG shows a heart rhythm consistent with atrial fibrillation with controlled ventricular rate. No obvious acute ischemic EKG changes. As stated above, the patient is a DO NOT RESUSCITATE/DO NOT INTUBATE. Patient's daughters, who are at bedside, do not want any aggressive treatments. They have declined central line placement by ER physician. They have been made aware of the patient's poor prognosis without these life-sustaining measures. Review of Systems REVIEW OF SYSTEMS: CONSTITUTIONAL: Denies any recent significant weight loss or weight gain. EYES: Denies change in vision. EARS, NOSE, MOUTH, THROAT: Denies headaches, denies sore throat. CARDIOVASCULAR: Denies chest pain, palpitations or syncopal episodes. RESPIRATORY: Denies shortness of breath, cough, congestion or hemoptysis. GASTROINTESTINAL: Denies change in appetite, abdominal pain, or diarrhea. Reports episode of nausea and vomiting yesterday. Does admit some central abdominal pain. GENITOURINARY: Denies hematuria, denies infections. MUSKULOSKELETAL: Denies pain, denies swelling. INTEGUMENTARY: Reports lower extremity blisters NEUROLOGICAL: Denies recent memory loss, no recent seizure activity. PSYCHIATRIC: Denies anxiety, denies depression. HEMATOLOGIC/LYMPHATIC: Denies anemia, denies enlarged lymph node Past Medical History Past Medical History: Heart Failure, Diabetes Mellitus, GERD/Reflux, Hyperlipidemia, Hypertension, Skin Disorder Additional Past Medical History / Comment(s): recent adm to [facility] for SOB, adjusted meds, is better, but still SOB w/exertion, possible heart valve problem, sore right leg after caught it on car door pretty much gone History of Any Multi-Drug Resistant Organisms: None Reported Past Surgical History: Section, Heart Catheterization, Heart Catheterization With Stent, Hysterectomy, Joint Replacement, Orthopedic Surgery Additional Past Surgical History / Comment(s): 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, Past Anesthesia/Blood Transfusion Reactions: No Reported Reaction Date of Last Stent Placement:: unsure Past Psychological History: No Psychological Hx Reported Smoking Status: Former smoker Past Alcohol Use History: None Reported Past Drug Use History: None Reported - Past Family History Son(s) Additional Family Medical History / Comment(s): nephritis Medications and Allergies Home Medications Medication Instructions Recorded Confirmed Type Clopidogrel [Plavix] 75 mg PO DAILY 07/16/14 01/01/24 History Lansoprazole [Prevacid] 30 mg PO DAILY 07/16/14 01/01/24 History Pioglitazone [Actos] 15 mg PO DAILY 10/16/23 01/01/24 History Atorvastatin Calcium [Lipitor] 40 mg PO HS 11/22/23 01/01/24 History Apixaban [Eliquis] 5 mg PO BID tab 11/27/23 01/01/24 Rx Gabapentin 1,200 mg PO HS #6 tab 11/27/23 01/01/24 Rx Acetaminophen [Tylenol] 325 - 650 mg PO Q6H PRN 01/01/24 01/01/24 History Cholecalciferol [Vitamin D3 (25 25 mcg PO DAILY 01/01/24 01/01/24 History Mcg = 1000 Iu)] Furosemide [Lasix] 80 mg PO DAILY 01/01/24 01/01/24 History Gabapentin 300 mg PO BID@0800,1600 01/01/24 01/01/24 History INSULIN ASPART (NovoLOG) [NovoLOG See Protocol SQ AC-TID 01/01/24 01/01/24 History (formulary)] Melatonin 5 mg PO HS 01/01/24 01/01/24 History Midodrine [ProAmatine] 5 mg PO BID 01/01/24 01/01/24 History Ondansetron [Ondansetron Odt] 4 mg PO Q6H PRN 01/01/24 01/01/24 History Potassium Chloride [Klor-Con 10 ER] 10 meq PO DAILY 01/01/24 01/01/24 History Tums 1000mg 2,000 - 3,000 mg PO DAILY PRN 01/01/24 01/01/24 History polyethylene glycoL 3350 [Miralax] 17 gm PO DAILY PRN 01/01/24 01/01/24 History Allergies Allergy/AdvReac Type Severity Reaction Status Date / Time sulfamethoxazole Allergy Itching Verified 01/01/24 08:56 [From Bactrim] trimethoprim [From Bactrim] Allergy Itching Verified 01/01/24 08:56 Physical Exam Vitals: Vital Signs Pulse Resp BP Pulse Ox 01/01/24 01:33 64 18 76/51 99 12/31/23 23:14 68 16 68/41 100 Intake and Output 12/31/23 12/31/23 01/01/24 14:59 22:59 06:59 Other: Weight 68.039 kg GENERAL EXAM: Lethargic, 88-year-old white female, awakens to verbal stimulation but then quickly falls back asleep, comfortable in no apparent distress. HEAD: Normocephalic and atraumatic EYES: Normal reaction of pupils, equal size. NOSE: Clear with pink turbinates. THROAT: No erythema or exudates. NECK: No masses, no JVD. CHEST: No chest wall deformity. LUNGS: Equal air entry with right lower lobe inspiratory crackles and scattered wheezing. On 2 L/min nasal cannula. SpO2 100%. No conversational dyspnea or accessory muscle use.. CVS: S1 and S2 normal with soft grade 1 systolic murmur, irregular rhythm. No other extra heart sounds ABDOMEN: No hepatosplenomegaly, active bowel sounds, no guarding or rigidity. No flank or periumbilical bruising, negative Mays sign, no rebound tenderness, no iliopsoas irritation SPINE: No scoliosis or deformity SKIN: Multiple vesicles and blisters on feet along with a couple of shallow ulcerations, dressed with Kerlix and Aquacel silver CENTRAL NERVOUS SYSTEM: No focal deficits, tone is normal in all 4 extremities. EXTREMITIES: There is bilateral lower extremity 3-4+ pitting edema. No clubbing, or cyanosis. Peripheral pulses are intact but weak. Results - Laboratory Findings CBC and BMP: 01/01/24 00:39 01/01/24 03:45 Abnormal lab findings: Abnormal Labs 01/01/24 01/01/24 01/01/24 00:39 00:39 00:39 Sodium 133 L Potassium 6.0 H Carbon Dioxide 18 L BUN 84 H Creatinine 2.76 H Plasma Lactic Acid Evan 2.8 H* Total Bilirubin 3.6 H AST 1513 H ALT 673 H Alkaline Phosphatase 447 H Troponin I 0.129 H* Total Protein 6.1 L Albumin 3.0 L Crossmatch 01/01/24 00:39 Sodium Potassium Carbon Dioxide BUN Creatinine Plasma Lactic Acid Evan Total Bilirubin AST ALT Alkaline Phosphatase Troponin I Total Protein Albumin Crossmatch See Detail - Diagnostic Findings Chest x-ray: image reviewed Assessment and Plan Assessment: Suspected healthcare associated right-sided pneumonia and sepsis, chest x-ray at our facility redemonstrates the right basilar airspace opacity concerning for pneumonia, as well as cardiomegaly with small right and moderate left pleural effusions. Hypotension and shock, likely secondary to a component of sepsis and septic shock Hypothermia, will place this patient on the external warming blanket Acute on chronic systolic congestive heart failure Acute on chronic kidney disease, secondary to ATN and sepsis Chronic anemia, microcytic and hypochromic, no acute blood loss noted Hyperkalemia Shock liver Hyperbilirubinemia and jaundice Elevated troponins, rule out an NSTEMI Severe ischemic cardiomyopathy, with an ejection fraction estimated at 20 to 25% Valvular heart disease, with moderate mitral regurgitation, mild to moderate tricuspid regurgitation, and mild aortic stenosis Coronary artery disease, with multiple recent PCI/stenting, including 2 stents to the LAD on 10/31/2023 and 2 stents to the RCA on 10/25/2023 Chronic atrial fibrillation, anticoagulated on Eliquis History of hyperlipidemia Obesity, with a BMI of 30.3 kg/m Plan: Patient's medications, labs, chest x-ray from outside facility were reviewed Patient remains profoundly hypotensive. She is in the process of receiving 1 unit PRBCs Will consider low dose vasopressors if the patient remains hypotensive. Patient was placed on broad-spectrum antibiotics. Orr cultures are pending. Will treat patient's hyperkalemia with 10 units of regular insulin, 1 amp D50 W, 1 g calcium gluconate, concentrated albuterol, and dose of Lokelma. Nephrology consulted. Repeat labs to follow, including electrolytes. Repeat chest x-ray pending. Patient is a DO NOT RESUSCITATE/DO NOT INTUBATE. Patient's decision-maker and daughters have also declined central line placement. Patient's condition is currently critical and overall prognosis is certainly guarded. She will be admitted to the intensive care unit. I have personally seen and examined the patient, performed the documentation and the assessment and plan as written. Number of minutes spent on the visit:20 I saw and evaluated the patient in the presence of the nurse practitioner. This evaluation was done more than 30 minutes. I reviewed the medical records. I shady lso talked to her drum reel cutter, Dr. Wilkes. In summary, the patient has severe ischemic cardiomyopathy with an EF of around 5% and she is also is known to have coronary disease and she has undergone recent coronary intervention and stenting of the RCA and LAD. She has chronic A-fib and she is quite debilitated at baseline. She has had several hospitalizations. She is a DNR/DNI CODE STATUS. She comes in with bilateral pneumonia and multisystem organ failure. Currently she is hypotensive, has acute liver injury and kidney injury and the patient is also oliguric on low-dose pressors for hemodynamic support. She is also encephalopathic and lethargic and weak. She remains on 2 L of oxygen by nasal cannula. After having a lengthy discussion with the family, the family opted to proceed with hospice care. I think that is a reasonable option based on her age and multiple comorbidities and impaired performance and functional status. The patient's wishes are being honored at this point as the patient did not want any aggressive measures of therapy. 2 of the daughters at the bedside decided to proceed with hospice care. Hospice will be consulted. Meanwhile, the patient will be transferred to a private room under hospice care. This evaluation was done more than 30 minutes. Time with Patient: Greater than 30
[2024-01-01] MEDS: NOREPINEPHRINE 4 MG in SODIUM CHLORIDE 0.9% 250 ML IV SCH (06:09)
[2024-01-01 07:13] LABS: Glucose,Whole Blood 39 mg/dL (70-110)
[2024-01-01 07:27] LABS: Glucose,Whole Blood 136 mg/dL (70-110)
[2024-01-01] MEDS: MIDODRINE 5 MG TAB PO SCH (08:05)
[2024-01-01] MEDS: APIXABAN 2.5 MG TABLET PO SCH (08:53)
[2024-01-01] MEDS: PANTOPRAZOLE 40 MG/10 ML VIAL IVP SCH (08:53)
[2024-01-01] MEDS ORDERED: APIXABAN 5 MG TAB PO SCH (09:00)
--- NOTE | 2024-01-01 09:28 | US ---
EXAMINATION TYPE: US liver DATE OF EXAM: 01/01/2024 COMPARISON: CLINICAL INDICATION: Female, 88 years old with history of Abdominal pain, elevated LFTs, hyperbilirub inemia; Outside CT. ICU patient. TECHNIQUE: Multiple sonographic images of the right upper quadrant are obtained. FINDINGS: EXAM MEASUREMENTS: Liver Length: 15.1 cm Right Kidney: 8.5 x 4.2 x 3.9 cm COOKER [facility] NOTES: Unable to obtain LLD images due to ICU status Pancreas: Tail obscured by overlying bowel gas. Main pancreatic duct= 2.0 mm. Liver: Slightly heterogenous, limited visualization due to patient body habitus Gallbladder: Suboptimal visualization. Unable to obtain LLD images. Possible compacted with stones , unable to visualize GB lumen. Evidence for sonographic Mays's sign: neg CBD: Obscured by overlying bowel gas Right Kidney: Inferior obscured by overlying bowel gas, no prominent masses lesions seen IMPRESSION: 1. Limited evaluation of the gallbladder with structure thought to represent the gallbladder possibl y filled with shadowing gallstones. 2. Hepatic steatosis.
--- NOTE | 2024-01-01 11:19 | P.NPCON ---
History of Present Illness - Reason for Consult acute renal failure - History of Present Illness Patient is an 88-year-old female with history of coronary artery disease, ischemic cardiomyopathy, type 2 diabetes who is admitted to the hospital with history of decreased oral intake, increased weakness and increased leg swelling. Patient had also been coughing. Blood pressure was significantly low on admission and patient is currently maintained on levo fed. Patient has had no significant urine output. Serum creatinine at 2.7 mg/dL. There is concern for pneumonia and patient is maintained on IV antibiotics and IV fluids. Patient also has blisters and ulcers on her feet/toes. Potassium was elevated at 6.0 on admission and it is down to 5.3 now. Family is present at bedside and are considering hospice care. Review of Systems As per HPI Past Medical History Past Medical History: Heart Failure, Diabetes Mellitus, GERD/Reflux, Hyperlipidemia, Hypertension, Skin Disorder Additional Past Medical History / Comment(s): recent adm to [facility] for SOB, adjusted meds, is better, but still SOB w/exertion, possible heart valve problem, sore right leg after caught it on car door pretty much gone Last Myocardial Infarction Date:: 11/28/22 History of Any Multi-Drug Resistant Organisms: None Reported Past Surgical History: Section, Heart Catheterization, Heart Catheterization With Stent, Hysterectomy, Joint Replacement, Orthopedic Surgery Additional Past Surgical History / Comment(s): 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, Past Anesthesia/Blood Transfusion Reactions: No Reported Reaction Date of Last Stent Placement:: unsure Past Psychological History: No Psychological Hx Reported Smoking Status: Former smoker Past Alcohol Use History: None Reported Past Drug Use History: None Reported - Past Family History Son(s) Additional Family Medical History / Comment(s): nephritis Medications and Allergies Home Medications Medication Instructions Recorded Confirmed Type Clopidogrel [Plavix] 75 mg PO DAILY 07/16/14 01/01/24 History Lansoprazole [Prevacid] 30 mg PO DAILY 07/16/14 01/01/24 History Pioglitazone [Actos] 15 mg PO DAILY 10/16/23 01/01/24 History Atorvastatin Calcium [Lipitor] 40 mg PO HS 11/22/23 01/01/24 History Apixaban [Eliquis] 5 mg PO BID tab 11/27/23 01/01/24 Rx Gabapentin 1,200 mg PO HS #6 tab 11/27/23 01/01/24 Rx Acetaminophen [Tylenol] 325 - 650 mg PO Q6H PRN 01/01/24 01/01/24 History Cholecalciferol [Vitamin D3 (25 25 mcg PO DAILY 01/01/24 01/01/24 History Mcg = 1000 Iu)] Furosemide [Lasix] 80 mg PO DAILY 01/01/24 01/01/24 History Gabapentin 300 mg PO BID@0800,1600 01/01/24 01/01/24 History INSULIN ASPART (NovoLOG) [NovoLOG See Protocol SQ AC-TID 01/01/24 01/01/24 History (formulary)] Melatonin 5 mg PO HS 01/01/24 01/01/24 History Midodrine [ProAmatine] 5 mg PO BID 01/01/24 01/01/24 History Ondansetron [Ondansetron Odt] 4 mg PO Q6H PRN 01/01/24 01/01/24 History Potassium Chloride [Klor-Con 10 ER] 10 meq PO DAILY 01/01/24 01/01/24 History Tums 1000mg 2,000 - 3,000 mg PO DAILY PRN 01/01/24 01/01/24 History polyethylene glycoL 3350 [Miralax] 17 gm PO DAILY PRN 01/01/24 01/01/24 History Allergies Allergy/AdvReac Type Severity Reaction Status Date / Time sulfamethoxazole Allergy Itching Verified 01/01/24 08:56 [From Bactrim] trimethoprim [From Bactrim] Allergy Itching Verified 01/01/24 08:56 Physical Exam Vitals: Vital Signs Temp Pulse Resp BP Pulse Ox 01/01/24 10:00 84 20 99/86 99 01/01/24 09:45 82 17 94/66 98 01/01/24 09:30 79 18 88/72 96 01/01/24 09:15 80 16 98/57 99 01/01/24 09:00 81 12 101/75 98 01/01/24 08:45 84 14 100/55 97 01/01/24 08:30 83 15 103/49 100 01/01/24 08:15 82 17 102/35 96 01/01/24 08:00 77 17 101/36 95 01/01/24 07:45 71 19 97/38 95 01/01/24 07:30 73 0 L 89/46 96 01/01/24 07:15 70 19 89/66 94 L 01/01/24 07:00 73 22 94/33 98 01/01/24 06:45 67 18 98/46 94 L 01/01/24 06:30 73 22 83/53 100 01/01/24 06:15 69 18 86/33 98 01/01/24 06:00 68 22 87/34 97 01/01/24 05:45 68 11 L 87/28 98 01/01/24 05:30 73 17 76/64 98 01/01/24 05:15 72 18 88/65 99 01/01/24 05:00 73 18 103/81 98 01/01/24 04:45 75 12 85/51 98 01/01/24 04:30 97.0 F L 78 19 110/52 99 01/01/24 04:15 77 19 106/43 98 01/01/24 04:00 96.0 F L 79 20 93/51 98 01/01/24 03:49 96.4 F L 82 19 93/51 99 01/01/24 03:45 80 23 105/49 98 01/01/24 03:30 85 18 93/29 01/01/24 03:15 25 H 63/34 97 01/01/24 03:12 96.1 F L 85 22 92/60 01/01/24 03:04 63 01/01/24 03:00 63 22 87/33 100 01/01/24 02:52 96.0 F L 82 21 84/56 01/01/24 02:46 64 01/01/24 02:45 75/40 01/01/24 02:30 65 20 82/41 100 01/01/24 02:15 66 20 84/65 100 01/01/24 02:00 71 23 74/36 98 01/01/24 01:45 40 H 01/01/24 01:33 64 18 76/51 99 12/31/23 23:14 68 16 68/41 100 Intake and Output 12/31/23 01/01/24 01/01/24 22:59 06:59 14:59 Intake Total 1115.314 434.563 Balance 1115.314 434.563 Intake: IV 800 400 PRBC 300 Sodium Chloride 0.9% 1, 500 400 000 ml @ 100 mls/hr IV . Q10H CALVIN Rx#:[id number] Intake, IV Titration 5.314 34.563 Amount Norepinephrine 4 mg In 5.314 34.563 Sodium Chloride 0.9% 250 ml @ 0.03 MCG/KG/MIN 7. 777 mls/hr IV .Q24H CALVIN Rx#:[id number] Blood Product 310 Rc As-1 Unit 310 [id number] Other: Weight 71.1 kg Patient is comfortable. She does open her eyes to verbal stimuli. Patient does not communicate much. Examination of the heart S1 and S2 Examination of the lungs decreased breath sounds at the bases Abdomen is soft mild tenderness noted mid abdomen Examination of lower extremity shows edema 2+ bilaterally toes are dressed on the left foot. Blisters noted. Results - Lab Results Most recent lab results Calcium 8.6 mg/dL (8.4-10.2) 01/01/24 03:45 Magnesium 1.6 mg/dL (1.6-2.3) 01/01/24 00:39 01/01/24 00:39 01/01/24 03:45 Assessment and Plan Assessment: 1. Acute kidney injury, ATN, and oliguric secondary to hypotension and underlying infection. 2. Sepsis, source UTI versus pneumonia. UA not available yet as patient has no urine output 3. Hyperkalemia associated with acute kidney injury and metabolic acidosis. Currently improved 3. Non-gap metabolic acidosis secondary to acute kidney injury and an element of lactic acidosis 4. Coronary artery disease with history of coronary stents. 5. History of CHF 6. Chronic A. fib with controlled ventricular response 7. Anemia with no active bleeding noted being transfused packed RBCs. Plan: Continue IV fluids. No plans for aggressive care. Daughters are strongly considering hospice care. Continue with IV fluids and IV antibiotics. Consider holding abby Thank you for the consultation. We will continue to follow the patient with you during her hospitalization.
--- NOTE | 2024-01-01 12:39 | P.HPIM ---
History of Present Illness Patient is an 88-year-old female admitted with septic shock which was initially believed to be pneumonia because of bilateral pleural effusions although patient does have history of congestive heart failure admitted with pulm edema. Patient was hypotensive with elevated AST and ALT in the liver enzymes along with elevated troponin. Patient had an abdominal ultrasound which showed gallstones patient may have ascending cholangitis or cholecystitis. Lipase is not available at this time. Patient was on broad-spectrum antibiotics vancomycin and Zosyn with improvement in her mental status patient was severely encephalopathic patient had toxic encephalopathy. Which appears to be improving but patient is not new patient to make in addition patient is alert oriented x 2 when I evaluated the patient. By the time I evaluated the patient family already decided on hospice patient was already evaluated by hand outside cutter. Hospice was consulted. Patient is presently on pressor support which is being weaned off at this time. Patient has extensive cardiac history including congestive heart failure with EF of around 20 to 25% and multiorgan dysfunction possibly including shock liver, elevated troponins, acute renal failure and acute tubular necrosis patient had PCI and stents that were done recently REVIEW OF SYSTEMS: All other systems are reviewed and are negative PHYSICAL EXAMINATION: GENERAL: The patient is alert and oriented x2, not in any acute distress. Well developed, well nourished. HEENT: Pupils are round and equally reacting to light. EOMI. No scleral icterus. No conjunctival pallor. Normocephalic, atraumatic. No pharyngeal erythema. No thyromegaly. CARDIOVASCULAR: S1 and S2 present. No murmurs, rubs, or gallops. PULMONARY: Chest is clear to auscultation, no wheezing or crackles. ABDOMEN: Soft, nontender, nondistended, normoactive bowel sounds. No palpable organomegaly. MUSCULOSKELETAL: No joint swelling or deformity. EXTREMITIES: No cyanosis, clubbing, extensive bilateral pitting pedal edema NEUROLOGICAL: Significant generalized weakness but no focal weakness SKIN: No rashes. Assessment -Septic shock possibly secondary to intra-abdominal infection or pneumonia patient on broad-spectrum antibiotics shock improving pressors are being weaned off -Congestive heart failure chronic systolic function with acute exacerbation considering septic shock patient is in fact receiving IV fluids and patient is hypotensive Acute renal failure secondary to acute tubular necrosis patient does have chronic kidney disease I am unable to stage at this time -Hyperkalemia secondary to acute renal failure and medications -Transaminitis: 3 possibilities ascending cholangitis, cholecystitis, shock liver, hepatic congestion -Coronary artery disease and ischemic cardiomyopathy -Chronic atrial fibrillation on anticoagulation with Eliquis Plan: I had a lengthy discussion with the family patient cannot make any edition at this time as per the paperwork patient wanted to be DO NOT RESUSCITATE. I had lengthy discussion with 2 daughters present at the bedside they wanted patient to be on comfort care or hospice which may be appropriate considering that her functionality is not very good and dependent on ADLs and IADLs recently and has been in a [facility] for 2 weeks. Patient also has advanced heart failure. If patient tolerates weaning of pressors at this time then patient probably will be discharged to a hospice facility. If patient goes into respiratory distress then patient will be made inpatient hospice at that time. If patient continues to be discharged or discharge just he just removed the plan and just had couple lines that Past Medical History Past Medical History: Heart Failure, Diabetes Mellitus, GERD/Reflux, Hyperlipidemia, Hypertension, Skin Disorder Additional Past Medical History / Comment(s): recent adm to [facility], [place] for SOB, adjusted meds, is better, but still SOB w/exertion, possible heart valve problem, sore right leg after caught it on car door pretty much gone Last Myocardial Infarction Date:: 11/28/22 History of Any Multi-Drug Resistant Organisms: None Reported Past Surgical History: Section, Heart Catheterization, Heart Catheterization With Stent, Hysterectomy, Joint Replacement, Orthopedic Surgery Additional Past Surgical History / Comment(s): 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, Past Anesthesia/Blood Transfusion Reactions: No Reported Reaction Date of Last Stent Placement:: unsure Past Psychological History: No Psychological Hx Reported Smoking Status: Former smoker Past Alcohol Use History: None Reported Past Drug Use History: None Reported - Past Family History Son(s) Additional Family Medical History / Comment(s): nephritis Medications and Allergies Home Medications Medication Instructions Recorded Confirmed Type Clopidogrel [Plavix] 75 mg PO DAILY 07/16/14 01/01/24 History Lansoprazole [Prevacid] 30 mg PO DAILY 07/16/14 01/01/24 History Pioglitazone [Actos] 15 mg PO DAILY 10/16/23 01/01/24 History Atorvastatin Calcium [Lipitor] 40 mg PO HS 11/22/23 01/01/24 History Apixaban [Eliquis] 5 mg PO BID tab 11/27/23 01/01/24 Rx Gabapentin 1,200 mg PO HS #6 tab 11/27/23 01/01/24 Rx Acetaminophen [Tylenol] 325 - 650 mg PO Q6H PRN 01/01/24 01/01/24 History Cholecalciferol [Vitamin D3 (25 25 mcg PO DAILY 01/01/24 01/01/24 History Mcg = 1000 Iu)] Furosemide [Lasix] 80 mg PO DAILY 01/01/24 01/01/24 History Gabapentin 300 mg PO BID@0800,1600 01/01/24 01/01/24 History INSULIN ASPART (NovoLOG) [NovoLOG See Protocol SQ AC-TID 01/01/24 01/01/24 History (formulary)] Melatonin 5 mg PO HS 01/01/24 01/01/24 History Midodrine [ProAmatine] 5 mg PO BID 01/01/24 01/01/24 History Ondansetron [Ondansetron Odt] 4 mg PO Q6H PRN 01/01/24 01/01/24 History Potassium Chloride [Klor-Con 10 ER] 10 meq PO DAILY 01/01/24 01/01/24 History Tums 1000mg 2,000 - 3,000 mg PO DAILY PRN 01/01/24 01/01/24 History polyethylene glycoL 3350 [Miralax] 17 gm PO DAILY PRN 01/01/24 01/01/24 History Allergies Allergy/AdvReac Type Severity Reaction Status Date / Time sulfamethoxazole Allergy Itching Verified 01/01/24 08:56 [From Bactrim] trimethoprim [From Bactrim] Allergy Itching Verified 01/01/24 08:56 Physical Exam Vitals: Vital Signs Temp Pulse Resp BP Pulse Ox 01/01/24 12:30 80 15 154/118 100 01/01/24 12:15 83 20 97/79 100 01/01/24 12:00 85 5 L 98/72 98 01/01/24 11:45 87 19 112/99 99 01/01/24 11:30 86 19 103/67 99 01/01/24 11:15 86 20 99/43 99 01/01/24 11:00 81 19 77/58 98 01/01/24 10:45 85 16 102/42 100 01/01/24 10:30 82 19 109/46 96 01/01/24 10:15 82 16 72/50 99 01/01/24 10:00 84 20 99/86 99 01/01/24 09:45 82 17 94/66 98 01/01/24 09:30 79 18 88/72 96 01/01/24 09:15 80 16 98/57 99 01/01/24 09:00 81 12 101/75 98 01/01/24 08:45 84 14 100/55 97 01/01/24 08:30 83 15 103/49 100 01/01/24 08:15 82 17 102/35 96 01/01/24 08:00 77 17 101/36 95 01/01/24 07:45 71 19 97/38 95 01/01/24 07:30 73 0 L 89/46 96 01/01/24 07:15 70 19 89/66 94 L 01/01/24 07:00 73 22 94/33 98 01/01/24 06:45 67 18 98/46 94 L 01/01/24 06:30 73 22 83/53 100 01/01/24 06:15 69 18 86/33 98 01/01/24 06:00 68 22 87/34 97 01/01/24 05:45 68 11 L 87/28 98 01/01/24 05:30 73 17 76/64 98 01/01/24 05:15 72 18 88/65 99 01/01/24 05:00 73 18 103/81 98 01/01/24 04:45 75 12 85/51 98 01/01/24 04:30 97.0 F L 78 19 110/52 99 01/01/24 04:15 77 19 106/43 98 01/01/24 04:00 96.0 F L 79 20 93/51 98 01/01/24 03:49 96.4 F L 82 19 93/51 99 01/01/24 03:45 80 23 105/49 98 01/01/24 03:30 85 18 93/29 01/01/24 03:15 25 H 63/34 97 01/01/24 03:12 96.1 F L 85 22 92/60 01/01/24 03:04 63 01/01/24 03:00 63 22 87/33 100 01/01/24 02:52 96.0 F L 82 21 84/56 01/01/24 02:46 64 01/01/24 02:45 75/40 01/01/24 02:30 65 20 82/41 100 01/01/24 02:15 66 20 84/65 100 01/01/24 02:00 71 23 74/36 98 01/01/24 01:45 40 H 01/01/24 01:33 64 18 76/51 99 12/31/23 23:14 68 16 68/41 100 Intake and Output 12/31/23 01/01/24 01/01/24 22:59 06:59 14:59 Intake Total 1115.314 503.949 Balance 1115.314 503.949 Intake: IV 800 400 PRBC 300 Sodium Chloride 0.9% 1, 500 400 000 ml @ 100 mls/hr IV . Q10H CALVIN Rx#:[id number] Intake, IV Titration 5.314 103.949 Amount Norepinephrine 4 mg In 5.314 103.949 Sodium Chloride 0.9% 250 ml @ 0.03 MCG/KG/MIN 7. 777 mls/hr IV .Q24H CALVIN Rx#:[id number] Blood Product 310 Rc As-1 Unit 310 [id number] Other: Weight 71.1 kg Results CBC & Chem 7: 01/01/24 00:39 01/01/24 03:45 Labs: Abnormal Lab Results - Last 24 Hours (Table) 01/01/24 01/01/24 01/01/24 Range/Units 00:39 00:39 00:39 WBC 13.6 H (3.8-10.6) k/uL RBC 3.25 L (3.80-5.40) m/uL Hgb 7.6 L D (11.4-16.0) gm/dL Hct 25.5 L (34.0-46.0) % MCV 78.4 L (80.0-100.0) fL MCH 23.4 L (25.0-35.0) pg MCHC 29.9 L (31.0-37.0) g/dL RDW 19.2 H (11.5-15.5) % Neutrophils # (Manual) 12.70 H (1.3-7.7) k/uL Lymphocytes # (Manual) 0.54 L (1.0-4.8) k/uL Nucleated RBCs 8 H (0-0) /100 WBC PT 26.6 H (10.0-12.5) sec INR 2.7 H (<1.2) APTT 30.2 H (22.0-30.0) sec Sodium 133 L (137-145) mmol/L Potassium 6.0 H (3.5-5.1) mmol/L Carbon Dioxide 18 L (22-30) mmol/L BUN 84 H (7-17) mg/dL Creatinine 2.76 H (0.52-1.04) mg/dL Glucose (74-99) mg/dL POC Glucose (mg/dL) (70-110) mg/dL Plasma Lactic Acid Evan (0.7-2.0) mmol/L Total Bilirubin 3.6 H (0.2-1.3) mg/dL AST 1513 H (14-36) U/L ALT 673 H (4-34) U/L Alkaline Phosphatase 447 H (38-126) U/L Troponin I (0.000-0.034) ng/mL Total Protein 6.1 L (6.3-8.2) g/dL Albumin 3.0 L (3.5-5.0) g/dL Procalcitonin (0.02-0.09) ng/mL Crossmatch 01/01/24 01/01/24 01/01/24 Range/Units 00:39 00:39 00:39 WBC (3.8-10.6) k/uL RBC (3.80-5.40) m/uL Hgb (11.4-16.0) gm/dL Hct (34.0-46.0) % MCV (80.0-100.0) fL MCH (25.0-35.0) pg MCHC (31.0-37.0) g/dL RDW (11.5-15.5) % Neutrophils # (Manual) (1.3-7.7) k/uL Lymphocytes # (Manual) (1.0-4.8) k/uL Nucleated RBCs (0-0) /100 WBC PT (10.0-12.5) sec INR (<1.2) APTT (22.0-30.0) sec Sodium (137-145) mmol/L Potassium (3.5-5.1) mmol/L Carbon Dioxide (22-30) mmol/L BUN (7-17) mg/dL Creatinine (0.52-1.04) mg/dL Glucose (74-99) mg/dL POC Glucose (mg/dL) (70-110) mg/dL Plasma Lactic Acid Evan 2.8 H* (0.7-2.0) mmol/L Total Bilirubin (0.2-1.3) mg/dL AST (14-36) U/L ALT (4-34) U/L Alkaline Phosphatase (38-126) U/L Troponin I 0.129 H* (0.000-0.034) ng/mL Total Protein (6.3-8.2) g/dL Albumin (3.5-5.0) g/dL Procalcitonin (0.02-0.09) ng/mL Crossmatch See Detail 01/01/24 01/01/24 01/01/24 Range/Units 00:39 03:45 03:45 WBC (3.8-10.6) k/uL RBC (3.80-5.40) m/uL Hgb (11.4-16.0) gm/dL Hct (34.0-46.0) % MCV (80.0-100.0) fL MCH (25.0-35.0) pg MCHC (31.0-37.0) g/dL RDW (11.5-15.5) % Neutrophils # (Manual) (1.3-7.7) k/uL Lymphocytes # (Manual) (1.0-4.8) k/uL Nucleated RBCs (0-0) /100 WBC PT (10.0-12.5) sec INR (<1.2) APTT (22.0-30.0) sec Sodium 134 L (137-145) mmol/L Potassium 5.3 H (3.5-5.1) mmol/L Carbon Dioxide 20 L (22-30) mmol/L BUN 84 H (7-17) mg/dL Creatinine 2.77 H (0.52-1.04) mg/dL Glucose 107 H (74-99) mg/dL POC Glucose (mg/dL) (70-110) mg/dL Plasma Lactic Acid Evan 3.2 H* (0.7-2.0) mmol/L Total Bilirubin 3.4 H (0.2-1.3) mg/dL AST 1494 H (14-36) U/L ALT 677 H (4-34) U/L Alkaline Phosphatase 391 H (38-126) U/L Troponin I (0.000-0.034) ng/mL Total Protein 5.5 L (6.3-8.2) g/dL Albumin 2.5 L (3.5-5.0) g/dL Procalcitonin 0.25 H (0.02-0.09) ng/mL Crossmatch 01/01/24 01/01/24 Range/Units 07:12 07:25 WBC (3.8-10.6) k/uL RBC (3.80-5.40) m/uL Hgb (11.4-16.0) gm/dL Hct (34.0-46.0) % MCV (80.0-100.0) fL MCH (25.0-35.0) pg MCHC (31.0-37.0) g/dL RDW (11.5-15.5) % Neutrophils # (Manual) (1.3-7.7) k/uL Lymphocytes # (Manual) (1.0-4.8) k/uL Nucleated RBCs (0-0) /100 WBC PT (10.0-12.5) sec INR (<1.2) APTT (22.0-30.0) sec Sodium (137-145) mmol/L Potassium (3.5-5.1) mmol/L Carbon Dioxide (22-30) mmol/L BUN (7-17) mg/dL Creatinine (0.52-1.04) mg/dL Glucose (74-99) mg/dL POC Glucose (mg/dL) 39 L 136 H (70-110) mg/dL Plasma Lactic Acid Evan (0.7-2.0) mmol/L Total Bilirubin (0.2-1.3) mg/dL AST (14-36) U/L ALT (4-34) U/L Alkaline Phosphatase (38-126) U/L Troponin I (0.000-0.034) ng/mL Total Protein (6.3-8.2) g/dL Albumin (3.5-5.0) g/dL Procalcitonin (0.02-0.09) ng/mL Crossmatch Thrombosis Risk Factor Assmnt - Choose All That Apply Any of the Below Risk Factors Present?: Yes Each Factor Represents 1 point: Heart failure (<1month), Obesity (BMI >25), Swollen legs (current) Each Risk Factor Represents 3 Points: Age 75 years or older Thrombosis Risk Factor Assessment Total Risk Factor Score: 6 Thrombosis Risk Factor Assessment Level: High Risk
[2024-01-01] MEDS: PIPERACILLIN-TAZOBACTAM 3.375 GM in SODIUM CHLORIDE 0.9% 100 ML IVPB SCH (12:50)
--- NOTE | 2024-01-01 14:14 | P.CRDCN ---
History of Present Illness History of present illness: History of Present Illness: The patient is an 88-year-old female, followed by Dr. De La Torre who recently underwent PCI of her RCA and subsequently the LAD with Impella support Oct 2023. Postprocedure she had persistent bleeding from the right femoral artery requiring covered stent. She has a history of severe cardiomyopathy with aortic stenosis with some degree of low flow low gradient. She has a history of hypertension, hyperlipidemia and diabetes mellitus. Patient has been in and out of the hospital over last 3 months as well as at rehab. She currently has been at assisted living per family for last 2 weeks. She had a mechanical fall on Sunday and then felt too weak to stand up and therefore has been in a wheelchair since Sunday. Unfortunately she has been complaining of some epigastric discomfort and shortness of breath. She was noted to be somewhat jaundiced and had not been eating or drinking and had not had any movements or urinated in a few days and therefore went to ER. Patient was found to have acute liver injury and acute kidney injury and therefore transferred to [facility]. She is currently lethargic on norepinephrine and history is supplied by chart and family. Per family there is been no complaints of chest pain or pressure. She does have chronic lower extremity edema as well as some blistering and skin breakdown. She was noted to be hypotensive and placed on vasopressors. EKG shows atrial fibrillation with controlled ventricular rates. She does not have acute liver injury, shock liver, elevated AST 1494, ALT 677, alk phos 291, albumin 2.5, lactic acid 3.2, creatinine 2.7, potassium 5.3, total bilirubin 3.4. There has been some discussion regarding possible hospice however approximate 2 hours ago patient was more alert and answers some questions. Review of Systems: Unable to obtain secondary to altered mental status, nonresponsive Physical Examination: Gen: Somnolent, ill-appearing Head: Normocephalic. Eyes: Sclerae nonicteric. Neck: Good carotid upstroke, no bruit, no jugular venous distention. Lungs: Clear to auscultation. Heart: Irregular rate and rhythm, S1-S2 with a systolic murmur, 2/6 at the base Abdomen: Soft nontender, positive bowel sounds no organomegaly. Obese Extremities: +1-2 edema, intact distal pulses. Erythema with blisters noted Impression: 1. Chronic systolic heart failure 2. CAD Status post two-vessel stenting 3. Aortic stenosis, low-flow low gradient 4. Septic shock 5. Acute liver injury, acute kidney injury 6. Persistent atrial fibrillation with controlled ventricular rates 7. Diabetes mellitus type 2 8. Non-STEMI, likely type II etiology from sepsis Plan: Patient with presentation mainly consistent with septic shock. Mildly elevated troponins type II etiology from sepsis. Continue with current supportive care. Majority of presentation does not appear cardiac in nature. Prognosis poor. Past Medical History Past Medical History: Heart Failure, Diabetes Mellitus, GERD/Reflux, Hyperlipidemia, Hypertension, Skin Disorder Additional Past Medical History / Comment(s): recent adm to [facility] for SOB, adjusted meds, is better, but still SOB w/exertion, possible heart valve problem, sore right leg after caught it on car door pretty much gone Last Myocardial Infarction Date:: 11/28/22 History of Any Multi-Drug Resistant Organisms: None Reported Past Surgical History: Section, Heart Catheterization, Heart Catheterization With Stent, Hysterectomy, Joint Replacement, Orthopedic Surgery Additional Past Surgical History / Comment(s): 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, Past Anesthesia/Blood Transfusion Reactions: No Reported Reaction Date of Last Stent Placement:: unsure Past Psychological History: No Psychological Hx Reported Smoking Status: Former smoker Past Alcohol Use History: None Reported Past Drug Use History: None Reported - Past Family History Son(s) Additional Family Medical History / Comment(s): nephritis Medications and Allergies Home Medications Medication Instructions Recorded Confirmed Type Clopidogrel [Plavix] 75 mg PO DAILY 07/16/14 01/01/24 History Lansoprazole [Prevacid] 30 mg PO DAILY 07/16/14 01/01/24 History Pioglitazone [Actos] 15 mg PO DAILY 10/16/23 01/01/24 History Atorvastatin Calcium [Lipitor] 40 mg PO HS 11/22/23 01/01/24 History Apixaban [Eliquis] 5 mg PO BID tab 11/27/23 01/01/24 Rx Gabapentin 1,200 mg PO HS #6 tab 11/27/23 01/01/24 Rx Acetaminophen [Tylenol] 325 - 650 mg PO Q6H PRN 01/01/24 01/01/24 History Cholecalciferol [Vitamin D3 (25 25 mcg PO DAILY 01/01/24 01/01/24 History Mcg = 1000 Iu)] Furosemide [Lasix] 80 mg PO DAILY 01/01/24 01/01/24 History Gabapentin 300 mg PO BID@0800,1600 01/01/24 01/01/24 History INSULIN ASPART (NovoLOG) [NovoLOG See Protocol SQ AC-TID 01/01/24 01/01/24 History (formulary)] Melatonin 5 mg PO HS 01/01/24 01/01/24 History Midodrine [ProAmatine] 5 mg PO BID 01/01/24 01/01/24 History Ondansetron [Ondansetron Odt] 4 mg PO Q6H PRN 01/01/24 01/01/24 History Potassium Chloride [Klor-Con 10 ER] 10 meq PO DAILY 01/01/24 01/01/24 History Tums 1000mg 2,000 - 3,000 mg PO DAILY PRN 01/01/24 01/01/24 History polyethylene glycoL 3350 [Miralax] 17 gm PO DAILY PRN 01/01/24 01/01/24 History Allergies Allergy/AdvReac Type Severity Reaction Status Date / Time sulfamethoxazole Allergy Itching Verified 01/01/24 08:56 [From Bactrim] trimethoprim [From Bactrim] Allergy Itching Verified 01/01/24 08:56 Physical Exam Vitals: Vital Signs Temp Pulse Resp BP Pulse Ox 01/01/24 13:30 93 0 L 112/56 99 01/01/24 13:15 75 20 82/64 100 01/01/24 13:00 73 18 73/38 100 01/01/24 12:45 78 14 101/48 98 01/01/24 12:30 80 15 154/118 100 01/01/24 12:15 83 20 97/79 100 01/01/24 12:00 85 20 98/72 99 01/01/24 11:45 87 19 112/99 99 01/01/24 11:30 86 19 103/67 99 01/01/24 11:15 86 20 99/43 99 01/01/24 11:00 81 19 77/58 98 01/01/24 10:45 85 16 102/42 100 01/01/24 10:30 82 19 109/46 96 01/01/24 10:15 82 16 72/50 99 01/01/24 10:00 84 20 99/86 99 01/01/24 09:45 82 17 94/66 98 01/01/24 09:30 79 18 88/72 96 01/01/24 09:15 80 16 98/57 99 01/01/24 09:00 81 12 101/75 98 01/01/24 08:45 84 14 100/55 97 01/01/24 08:30 83 15 103/49 100 01/01/24 08:15 82 17 102/35 96 01/01/24 08:00 77 17 101/36 95 01/01/24 07:45 71 19 97/38 95 01/01/24 07:30 73 0 L 89/46 96 01/01/24 07:15 70 19 89/66 94 L 01/01/24 07:00 73 22 94/33 98 01/01/24 06:45 67 18 98/46 94 L 01/01/24 06:30 73 22 83/53 100 01/01/24 06:15 69 18 86/33 98 01/01/24 06:00 68 22 87/34 97 01/01/24 05:45 68 11 L 87/28 98 01/01/24 05:30 73 17 76/64 98 01/01/24 05:15 72 18 88/65 99 01/01/24 05:00 73 18 103/81 98 01/01/24 04:45 75 12 85/51 98 01/01/24 04:30 97.0 F L 78 19 110/52 99 01/01/24 04:15 77 19 106/43 98 01/01/24 04:00 96.0 F L 79 20 93/51 98 01/01/24 03:49 96.4 F L 82 19 93/51 99 01/01/24 03:45 80 23 105/49 98 01/01/24 03:30 85 18 93/29 01/01/24 03:15 25 H 63/34 97 01/01/24 03:12 96.1 F L 85 22 92/60 01/01/24 03:04 63 01/01/24 03:00 63 22 87/33 100 01/01/24 02:52 96.0 F L 82 21 84/56 01/01/24 02:46 64 01/01/24 02:45 75/40 01/01/24 02:30 65 20 82/41 100 01/01/24 02:15 66 20 84/65 100 01/01/24 02:00 71 23 74/36 98 01/01/24 01:45 40 H 01/01/24 01:33 64 18 76/51 99 12/31/23 23:14 68 16 68/41 100 Intake and Output 12/31/23 01/01/24 01/01/24 22:59 06:59 14:59 Intake Total 1115.314 806.325 Balance 1115.314 806.325 Intake: IV 800 700 PRBC 300 Sodium Chloride 0.9% 1, 500 700 000 ml @ 100 mls/hr IV . Q10H CALVIN Rx#:[id number] Intake, IV Titration 5.314 106.325 Amount Norepinephrine 4 mg In 5.314 106.325 Sodium Chloride 0.9% 250 ml @ 0.03 MCG/KG/MIN 7. 777 mls/hr IV .Q24H CALVIN Rx#:[id number] Blood Product 310 Rc As-1 Unit 310 [id number] Other: Weight 71.1 kg Results 01/01/24 00:39 01/01/24 03:45 Cardiac Enzymes 01/01/24 01/01/24 01/01/24 Range/Units 00:39 00:39 03:45 AST 1513 H 1494 H (14-36) U/L Troponin I 0.129 H* (0.000-0.034) ng/mL Coagulation 01/01/24 Range/Units 00:39 PT 26.6 H (10.0-12.5) sec APTT 30.2 H (22.0-30.0) sec CBC 01/01/24 Range/Units 00:39 WBC 13.6 H (3.8-10.6) k/uL RBC 3.25 L (3.80-5.40) m/uL Hgb 7.6 L D (11.4-16.0) gm/dL Hct 25.5 L (34.0-46.0) % Plt Count 175 (150-450) k/uL Comprehensive Metabolic Panel 01/01/24 01/01/24 Range/Units 00:39 03:45 Sodium 133 L 134 L (137-145) mmol/L Potassium 6.0 H 5.3 H (3.5-5.1) mmol/L Chloride 103 106 (98-107) mmol/L Carbon Dioxide 18 L 20 L (22-30) mmol/L BUN 84 H 84 H (7-17) mg/dL Creatinine 2.76 H 2.77 H (0.52-1.04) mg/dL Glucose 88 107 H (74-99) mg/dL Calcium 8.7 8.6 (8.4-10.2) mg/dL AST 1513 H 1494 H (14-36) U/L ALT 673 H 677 H (4-34) U/L Alkaline Phosphatase 447 H 391 H (38-126) U/L Total Protein 6.1 L 5.5 L (6.3-8.2) g/dL Albumin 3.0 L 2.5 L (3.5-5.0) g/dL Current Medications Generic Name Dose Route Start Last Admin Trade Name Freq PRN Reason Stop Dose Admin Apixaban 2.5 mg 01/01/24 09:00 01/01/24 08:53 Apixaban 2.5 Mg Tablet PO Not Given BID CALVIN Protocol Sodium Chloride 1,000 mls @ 100 mls/hr 01/01/24 00:15 01/01/24 01:06 Saline 0.9% IV 100 mls/hr .Q10H CALVIN Administration Piperacillin Sod/Tazobactam 100 mls @ 25 mls/hr 01/01/24 13:00 01/01/24 12:50 Sod 3.375 gm/ Sodium Chloride IVPB 25 mls/hr Q12H CALVIN Administration Protocol Norepinephrine Bitartrate 4 mg 254 mls @ 7.777 mls/hr 01/01/24 04:30 01/01/24 12:30 / Sodium Chloride IV 0 mcg/kg/min .Q24H CALVIN 0 mls/hr Titration Protocol 0.03 MCG/KG/MIN Vancomycin HCl 1,250 mg/ 250 mls @ 125 mls/hr 01/02/24 06:00 Sodium Chloride IVPB 01/02/24 07:59 ONCE ONE Midodrine 10 mg 01/01/24 07:30 01/01/24 12:50 Midodrine 5 Mg Tab PO 10 mg AC-TID CALVIN Administration Miscellaneous Information 1 each 03/19/24 00:11 Pneumonia Protocol Utilized 1 Each Misc PO ONCE PRN Per Protocol Miscellaneous Information 1 each 01/01/24 02:23 Vancomycin Iv Per Pharmacy 1 Each Misc MISCELLANE DIRECTED PRN Per Protocol Protocol Pantoprazole Sodium 40 mg 01/01/24 09:00 01/01/24 08:53 Pantoprazole 40 Mg/10 Ml Vial IVP Not Given DAILY CALVIN Intake and Output 12/31/23 01/01/24 01/01/24 22:59 06:59 14:59 Intake Total 1115.314 806.325 Balance 1115.314 806.325 Intake: IV 800 700 PRBC 300 Sodium Chloride 0.9% 1, 500 700 000 ml @ 100 mls/hr IV . Q10H CALVIN Rx#:[id number] Intake, IV Titration 5.314 106.325 Amount Norepinephrine 4 mg In 5.314 106.325 Sodium Chloride 0.9% 250 ml @ 0.03 MCG/KG/MIN 7. 777 mls/hr IV .Q24H CALVIN Rx#:[id number] Blood Product 310 Rc As-1 Unit 310 [id number] Other: Weight 71.1 kg 01/01/24 00:39 01/01/24 03:45
[2024-01-01] MEDS ORDERED: LORazepam 2 MG/ML INJ IV PRN (16:52)
[2024-01-01 18:14] VITALS: BP 59/37
[2024-01-02] MEDS ORDERED: VANCOMYCIN 1,250 MG in SODIUM CHLORIDE 0.9% 250 ML IVPB ONE (06:00)
--- NOTE | 2024-01-02 10:59 | P.PN ---
Subjective Progress Note Date: 01/02/24 On today's evaluation of 01/02/2024, the patient is on morphine which she is receiving 2 mg every 15 minutes patient is also on Ativan 1 mg every 6 hours. She is calm and comfortable. She is currently on hospice care. Most recent BP is 59/37. Her current respirate is around 7-12. Resting comfortably in bed. No other significant events overnight. Had a discussion with cardiology and the family member still in the process of end-of-life care. Objective - Vital Signs Vital signs: Vital Signs Temp 97.0 F L 01/01/24 04:30 Pulse 81 01/01/24 18:00 Resp 20 01/01/24 20:00 BP 59/37 01/01/24 18:00 Pulse Ox 100 01/01/24 18:00 FiO2 Intake & Output 01/01/24 01/02/24 01/02/24 18:59 06:59 18:59 Intake Total 1232.464 0 Output Total 0 Balance 1232.464 0 Weight 71 kg Intake: IV 1000 Sodium Chloride 0.9% 1, 1000 000 ml @ 100 mls/hr IV . Q10H CALVIN Rx#:[id number] Intake, IV Titration 232.464 Amount Norepinephrine 4 mg In 132.464 Sodium Chloride 0.9% 250 ml @ 0.03 MCG/KG/MIN 7. 777 mls/hr IV .Q24H CALVIN Rx#:[id number] Piperacillin-Tazobactam 3 100 .375 gm In Sodium Chloride 0.9% 100 ml @ 200 mls/hr IVPB ONCE STA Rx#:[id number] Oral 0 Output: Urine 0 Other: # Voids 0 - Exam GENERAL EXAM: Lethargic, 88-year-old white female, currently on morphine and Ativan and the patient is H obtundedEAD: Normocephalic and atraumatic EYES: Normal reaction of pupils, equal size. NOSE: Clear with pink turbinates. THROAT: No erythema or exudates. NECK: No masses, no JVD. CHEST: No chest wall deformity. LUNGS: Equal air entry with right lower lobe inspiratory crackles and scattered wheezing. On 2 L/min nasal cannula. SpO2 100%. No conversational dyspnea or accessory muscle use.. CVS: S1 and S2 normal with soft grade 1 systolic murmur, irregular rhythm. No other extra heart sounds ABDOMEN: No hepatosplenomegaly, active bowel sounds, no guarding or rigidity. No flank or periumbilical bruising, negative Mays sign, no rebound tenderness, no iliopsoas irritation SPINE: No scoliosis or deformity SKIN: Multiple vesicles and blisters on feet along with a couple of shallow ulcerations, dressed with Kerlix and Aquacel silver CENTRAL NERVOUS SYSTEM: No focal deficits, tone is normal in all 4 extremities. EXTREMITIES: There is bilateral lower extremity 3-4+ pitting edema. No clubbing, or cyanosis. Peripheral pulses are intact but weak. - Labs CBC & Chem 7: 01/01/24 00:39 01/01/24 03:45 Assessment and Plan Assessment: Bilateral lower lobe pneumonia and sepsis, chest x-ray at our facility redemonstrates the right basilar airspace opacity concerning for pneumonia, as well as cardiomegaly with small right and moderate left pleural effusions. This has been complicated by septic shock and multisystem organ failure and the patient's family opted for comfort care measures/hospice. Hypotension and shock, likely secondary to a component of sepsis and septic shock Hypothermia, will place this patient on the external warming blanket Acute on chronic systolic congestive heart failure Acute on chronic kidney disease, secondary to ATN and sepsis Chronic anemia, microcytic and hypochromic, no acute blood loss noted Hyperkalemia Shock liver Hyperbilirubinemia and jaundice Elevated troponins, rule out an NSTEMI Severe ischemic cardiomyopathy, with an ejection fraction estimated at 20 to 25% Valvular heart disease, with moderate mitral regurgitation, mild to moderate tricuspid regurgitation, and mild aortic stenosis Coronary artery disease, with multiple recent PCI/stenting, including 2 stents to the LAD on 10/31/2023 and 2 stents to the RCA on 10/25/2023 Chronic atrial fibrillation, anticoagulated on Eliquis History of hyperlipidemia Obesity, with a BMI of 30.3 kg/m Plan: Continue end-of-life care Hospice has been involved The patient can be transferred to a private room and she can be moved out of the intensive care unit.
[2024-01-02] MEDS: MORPHINE SULFATE 2 MG/ML SYRINGE IV PRN (17:02)
[2024-01-02] MEDS: MORPHINE SULFATE 4 MG/ML SYRINGE IV PRN (21:11)
[2024-01-03] MEDS: SCOPOLAMINE 1 MG/72 HR PATCH TRANSDERM SCH (01:08)
[2024-01-03] MEDS: ATROPINE OPHTH SOLN 1% 5ML BTL SUBLINGUAL PRN (01:08)
[2024-01-03 03:30] VITALS: PULSE 0; RESP 0
--- NOTE | 2024-01-03 09:39 | P.PN ---
Subjective Progress Note Date: 01/02/24 Patient is an 88-year-old female admitted with septic shock which was initially believed to be pneumonia because of bilateral pleural effusions although patient does have history of congestive heart failure admitted with pulm edema. Patient was hypotensive with elevated AST and ALT in the liver enzymes along with elevated troponin. Patient had an abdominal ultrasound which showed gallstones patient may have ascending cholangitis or cholecystitis. Lipase is not available at this time. Patient was on broad-spectrum antibiotics vancomycin and Zosyn with improvement in her mental status patient was severely encephalopathic patient had toxic encephalopathy. Which appears to be improving but patient is not new patient to make in addition patient is alert oriented x 2 when I evaluated the patient. By the time I evaluated the patient family already decided on hospice patient was already evaluated by fountain operator. Hospice was consulted. Patient is presently on pressor support which is being weaned off at this time. Patient has extensive cardiac history including congestive heart failure with EF of around 20 to 25% and multiorgan dysfunction possibly including shock liver, elevated troponins, acute renal failure and acute tubular necrosis patient had PCI and stents that were done recently 01/02/2024 Patient is evaluated in follow up in the ICU. Patient has been taken off pressor support and started on comfort care orders. Family at the bedside. Patient is resting comfortably. REVIEW OF SYSTEMS: All other systems are reviewed and are negative PHYSICAL EXAMINATION: GENERAL: The patient is alert and oriented x2, not in any acute distress. Well developed, well nourished. Lethargic HEENT: Pupils are round and equally reacting to light. EOMI. No scleral icterus. No conjunctival pallor. Normocephalic, atraumatic. No pharyngeal erythema. No thyromegaly. CARDIOVASCULAR: S1 and S2 present. No murmurs, rubs, or gallops. PULMONARY: Chest is clear to auscultation, no wheezing or crackles. ABDOMEN: Soft, nontender, nondistended, normoactive bowel sounds. No palpable organomegaly. MUSCULOSKELETAL: No joint swelling or deformity. EXTREMITIES: No cyanosis, clubbing, extensive bilateral pitting pedal edema NEUROLOGICAL: Significant generalized weakness but no focal weakness SKIN: No rashes. Assessment -Septic shock possibly secondary to intra-abdominal infection or pneumonia patient on broad-spectrum antibiotics shock improving pressors are being weaned off -Congestive heart failure chronic systolic function with acute exacerbation considering septic shock patient is in fact receiving IV fluids and patient is hypotensive -Severe ischemic cardiomyopathy EF 20-25% estimated with moderate MR, mild to moderate TR and mild aortic stenosis -Acute renal failure secondary to acute tubular necrosis patient does have chronic kidney disease I am unable to stage at this time -Hyperkalemia secondary to acute renal failure and medications -Transaminitis: 3 possibilities ascending cholangitis, cholecystitis, shock liver, hepatic congestion -Coronary artery disease with recent stenting to the LAD and RCA in october 2023 -Chronic atrial fibrillation on anticoagulation with Eliquis -Hx hyperlipidemia Do Not Resuscitate Do Not Intubate Plan: Continue with comfort care measures The impression and plan of care has been dictated by Mehreen Fragoso, Nurse Practitioner as directed. Dr. Trevor MD I have performed a history and physical examination and medical decision making of this patient, discussed the same with the dictator, and agree with the dictators assessment and plan as written, documented as a scribe. Based on total visit time, I have performed more than 50% of this visit. Objective - Vital Signs Vital signs: Vital Signs Temp 97.0 F L 01/01/24 04:30 Pulse 0 L 01/03/24 02:25 Resp 0 L 01/03/24 02:25 BP 59/37 01/01/24 18:00 Pulse Ox 100 01/01/24 18:00 FiO2 Intake & Output 01/02/24 01/03/24 01/03/24 18:59 06:59 18:59 Other: # Voids 0 - Labs CBC & Chem 7: 01/01/24 00:39 01/01/24 03:45 Labs: Microbiology - Last 24 Hours (Table) 01/01/24 00:39 Blood Culture - Preliminary Blood
--- NOTE | 2024-01-04 17:58 | P.DS ---
Providers Date of admission: 01/01/24 00:16 Attending physician: Regina Lovell Consults: 01/01/24 00:11 Consult Physician Routine Consulting Provider: Melonie Pop Consult Reason/Comments: Acute renal failure Do you want consulting provider notified?: Yes Consult Physician Stat Consulting Provider: Micheal Osorio Consult Reason/Comments: Pneumonia. Sepsis. Do you want consulting provider notified?: Already Contacted 01/01/24 00:13 Consult Physician Routine Consulting Provider: Ross De La Torre Consult Reason/Comments: NSTEMI Do you want consulting provider notified?: Yes Primary care physician: Physician Nonstaff Hospital Course: Final Diagnosis -Septic shock possibly secondary to intra-abdominal infection or pneumonia patient on broad-spectrum antibiotics -Hypotension and shock, likely secondary to a component of sepsis and septic shock -Hypothermia -Congestive heart failure chronic systolic function with acute exacerbation considering septic shock patient is in fact receiving IV fluids and patient is hypotensive -Severe ischemic cardiomyopathy EF 20-25% estimated with moderate MR, mild to moderate TR and mild aortic stenosis -Acute renal failure secondary to acute tubular necrosis patient does have chronic kidney disease I am unable to stage at this time -Hyperkalemia secondary to acute renal failure and medications -Transaminitis: 3 possibilities ascending cholangitis, cholecystitis, shock liver, hepatic congestion -Coronary artery disease with recent stenting to the LAD and RCA in october 2023 -Troponin elevation rule out NSTEMI -Chronic atrial fibrillation on anticoagulation with Eliquis -Hx hyperlipidemia Do Not Resuscitate Do Not Intubate Patient on 01/03/2024 while on comfort care. Preliminary cause of pneumonia and sepsis. Hospital Course Patient is an 88-year-old female admitted with septic shock which was initially believed to be pneumonia because of bilateral pleural effusions although patient does have history of congestive heart failure admitted with pulm edema. Patient was hypotensive with elevated AST and ALT in the liver enzymes along with elevated troponin. Patient had an abdominal ultrasound which showed gallstones patient may have ascending cholangitis or cholecystitis. Lipase is not available at this time. Patient was on broad-spectrum antibiotics vancomycin and Zosyn with improvement in her mental status patient was severely encephalopathic patient had toxic encephalopathy. Patient was admitted to the ICU. Requiring pressor support. Family already decided on hospice patient was already evaluated by customer retention representative. Hospice was consulted. Patient is presently on pressor support which is being weaned off at this time. Patient has extensive cardiac history including congestive heart failure with EF of around 20 to 25% and multiorgan dysfunction possibly including shock liver, elevated troponins, acute renal failure and acute tubular necrosis patient had PCI and stents that were done recently. Patient not a candidate for inpatient hospice as she was resting comfortably and not requiring hospice support. She was transitioned to comfort care medications and passed with family at the bedside. Thank you for allowing us to participate in the care of this patient. The impression and plan of care has been dictated by Mehreen Fragoso, Nurse Practitioner as directed. Dr. Trevor MD I have performed a history and physical examination and medical decision making of this patient, discussed the same with the dictator, and agree with the dictators assessment and plan as written, documented as a scribe. Based on total visit time, I have performed more than 50% of this visit. Plan - Discharge Summary New Discharge Prescriptions: No Action Lansoprazole [Prevacid] 30 mg PO DAILY Clopidogrel [Plavix] 75 mg PO DAILY Pioglitazone [Actos] 15 mg PO DAILY INSULIN ASPART (NovoLOG) [NovoLOG (formulary)] See Protocol SQ AC-TID polyethylene glycoL 3350 [Miralax] 17 gm PO DAILY PRN PRN Reason: Constipation Atorvastatin Calcium [Lipitor] 40 mg PO HS Apixaban [Eliquis] 5 mg PO BID tab Gabapentin 1,200 mg PO HS #6 tab Ondansetron [Ondansetron Odt] 4 mg PO Q6H PRN PRN Reason: Nausea And Vomiting Cholecalciferol [Vitamin D3 (25 Mcg = 1000 Iu)] 25 mcg PO DAILY Potassium Chloride [Klor-Con 10 ER] 10 meq PO DAILY Acetaminophen [Tylenol] 325 - 650 mg PO Q6H PRN PRN Reason: Pain Midodrine [ProAmatine] 5 mg PO BID Melatonin 5 mg PO HS Gabapentin 300 mg PO BID@0800,1600 Furosemide [Lasix] 80 mg PO DAILY Tums 1000mg 2,000 - 3,000 mg PO DAILY PRN PRN Reason: Indigestion Discharge Medication List Clopidogrel [Plavix] 75 mg PO DAILY 07/16/14 [History] Lansoprazole [Prevacid] 30 mg PO DAILY 07/16/14 [History] Pioglitazone [Actos] 15 mg PO DAILY 10/16/23 [History] Atorvastatin Calcium [Lipitor] 40 mg PO HS 11/22/23 [History] Apixaban [Eliquis] 5 mg PO BID tab 11/27/23 [Rx] Gabapentin 1,200 mg PO HS #6 tab 11/27/23 [Rx] Acetaminophen [Tylenol] 325 - 650 mg PO Q6H PRN 01/01/24 [History] Cholecalciferol [Vitamin D3 (25 Mcg = 1000 Iu)] 25 mcg PO DAILY 01/01/24 [History] Furosemide [Lasix] 80 mg PO DAILY 01/01/24 [History] Gabapentin 300 mg PO BID@0800,1600 01/01/24 [History] INSULIN ASPART (NovoLOG) [NovoLOG (formulary)] See Protocol SQ AC-TID 01/01/24 [History] Melatonin 5 mg PO HS 01/01/24 [History] Midodrine [ProAmatine] 5 mg PO BID 01/01/24 [History] Ondansetron [Ondansetron Odt] 4 mg PO Q6H PRN 01/01/24 [History] Potassium Chloride [Klor-Con 10 ER] 10 meq PO DAILY 01/01/24 [History] Tums 1000mg 2,000 - 3,000 mg PO DAILY PRN 01/01/24 [History] polyethylene glycoL 3350 [Miralax] 17 gm PO DAILY PRN 01/01/24 [History] Follow up Appointment(s)/Referral(s): Abelardo Lotfon MD [REFERRING] - 1-2 days Discharge Disposition: - Preliminary Cause of Preliminary Cause of : Pneumonia and Sepsis
== END 2024-01-03 02:25 | disposition expired | DRG 871 ==
LOC: EC 23:09 → 2SICU 01-01 00:16 → 4SSUR 01-02 11:38
PROVIDERS: ADMIT Internal Medicine; ATTEND Internal Medicine
PROC: 3E033XZ Introduction of Vasopressor into Peripheral Vein, Percutaneous Approach (ICD-10-PCS; principal; 2024-01-01)
PROC: 30233N1 Transfusion of Nonautologous Red Blood Cells into Peripheral Vein, Percutaneous Approach (ICD-10-PCS; 2024-01-01)
DX: A41.9 Sepsis, unspecified organism (principal); G92.9 Unspecified toxic encephalopathy; N17.0 Acute kidney failure with tubular necrosis; K72.00 Acute and subacute hepatic failure without coma; R65.21 Severe sepsis with septic shock; I50.23 Acute on chronic systolic (congestive) heart failure; J18.9 Pneumonia, unspecified organism; I21.A1 Myocardial infarction type 2; E87.20 Acidosis, unspecified; I13.0 Hypertensive heart and chronic kidney disease with heart failure and stage 1 through stage 4 chronic kidney disease, or unspecified chronic kidney disease; I48.19 Other persistent atrial fibrillation; K83.09 Other cholangitis; K81.9 Cholecystitis, unspecified; K76.1 Chronic passive congestion of liver; E11.22 Type 2 diabetes mellitus with diabetic chronic kidney disease; E66.9 Obesity, unspecified; D50.9 Iron deficiency anemia, unspecified; N18.9 Chronic kidney disease, unspecified; Z68.31 Body mass index [BMI] 31.0-31.9, adult; I08.3 Combined rheumatic disorders of mitral, aortic and tricuspid valves; Z79.4 Long term (current) use of insulin; Z51.5 Encounter for palliative care; Z66 Do not resuscitate; Z28.310 Unvaccinated for COVID-19; I25.5 Ischemic cardiomyopathy; I25.10 Atherosclerotic heart disease of native coronary artery without angina pectoris; E78.5 Hyperlipidemia, unspecified; E87.5 Hyperkalemia; K21.9 Gastro-esophageal reflux disease without esophagitis; L98.9 Disorder of the skin and subcutaneous tissue, unspecified; R62.7 Adult failure to thrive; I25.2 Old myocardial infarction; R68.0 Hypothermia, not associated with low environmental temperature; Z79.01 Long term (current) use of anticoagulants; Z79.02 Long term (current) use of antithrombotics/antiplatelets; Z79.84 Long term (current) use of oral hypoglycemic drugs; Z79.899 Other long term (current) drug therapy; Z95.5 Presence of coronary angioplasty implant and graft; Z99.3 Dependence on wheelchair; Z96.642 Presence of left artificial hip joint; Z87.891 Personal history of nicotine dependence; W18.30XA Fall on same level, unspecified, initial encounter; Z88.1 Allergy status to other antibiotic agents; Z88.2 Allergy status to sulfonamides
CPT/HCPCS: 36415; 36430; 71045; 76705; 80053; 83605; 83735; 83880; 84145; 84484; 85025; 85610; 85730; 86850; 86900; 86901; 86920; 87040; 87636; 93005; 94640; 94760; 96365; 99291